=== PATIENT | female | born 1960 | race Hispanic/Latino ===

== ENCOUNTER → 2018-04-07 | Outpatient (CLI) | payer OTHER ==
[~2018-04-07] MED LIST: ALBUMIN (HUMAN) 25% 200 ML IV SCH; FURO20TA4 PO; LACT10SO9 PO; LEVO137T2 PO; LIDOCAINE HCL MPF 1% 5ML VIAL ONE; SPIR50TA5 PO
[2018-04-07 08:39] LABS: EOSINOPHILS % (AUTO) 1.3 % (0.0-8.0); HEMATOCRIT 30.1 % (36-48); LYMPHOCYTES % (AUTO) 23.4 % (21.0-51.0); MEAN CORPUSCULAR HEMOGLOBIN 29.5 pg (27.0-33.0); MEAN CORPUSCULAR HGB CONC 33.2 g/dL (32.0-36.0); MONOCYTES % (AUTO) 11.7 % (3.0-13.0); NEUTROPHILS % (AUTO) 62.6 % (40.0-77.0); NUCLEATED RED BLOOD CELLS 0.1 % (0.0-0.19); PLATELET COUNT (AUTO) 81 K/uL (130-400); RED BLOOD CELL COUNT(AUTO) 3.38 MIL/uL (4.00-5.50); RED CELL DISTRIBUTION WIDTH 17.9 % (11.0-15.5); WHITE BLOOD COUNT (AUTO) 3.9 K/uL (4.8-10.8)
[2018-04-07 08:52] LABS: ALBUMIN 2.3 g/dL (3.5-5.0); BILIRUBIN,TOTAL 1.6 mg/dL (0.2-1.0); CREATININE 1.3 mg/dL (0.5-1.5); POTASSIUM 4.2 mmol/L (3.5-5.1); TOTAL PROTEIN, SERUM 7.4 g/dL (6.0-8.3)
[2018-04-07 09:00] LABS: INR 1.36 (0.85-1.15); PROTHROMBIN TIME 14.2 SEC (9.6-11.6)
[2018-04-07 13:03] LABS: APPEARANCE BODY FLUID CLEAR (CLEAR); COLOR,BODY FLUID YELLOW (LT YELLOW); SPECIMENTYPE,BODY FLUID ASCITES
[2018-04-07 13:04] LABS: BODY FLUID RBC 29 /cu. mm.; BODY FLUID WBC 68 /cu. mm.
[2018-04-07 13:06] LABS: BF LYMPHOCYTE 39 %; BF MESOTHELIAL 44 %; BF MONOCYTE 16 %
[2018-04-07 13:13] LABS: TOTAL VOLUME,BODY FLUID 12800 mL
== END | disposition home or self-care (01) ==
LOC: RAH 07:34
PROVIDERS: ATTEND Internal Medicine Gastroenterology
DX: R18.8 Other ascites (principal); I10 Essential (primary) hypertension; F41.9 Anxiety disorder, unspecified; F32.9 Major depressive disorder, single episode, unspecified; M81.0 Age-related osteoporosis without current pathological fracture; M19.90 Unspecified osteoarthritis, unspecified site; F15.90 Other stimulant use, unspecified, uncomplicated; Z72.89 Other problems related to lifestyle; Z79.899 Other long term (current) drug therapy; Z79.2 Long term (current) use of antibiotics; Z83.3 Family history of diabetes mellitus
CPT/HCPCS: 36415; 49083; 80053; 85025; 85610; 87071; 87205; 88108; 88305; 89051; 96365; A4215; J3490; P9046

== ENCOUNTER → 2018-04-25 | Outpatient (CLI) | payer OTHER ==
[2018-04-25 08:53] LABS: BASOPHILS % (AUTO) 1.4 % (0.0-5.0); EOSINOPHILS % (AUTO) 2.2 % (0.0-8.0); HEMATOCRIT 30.7 % (36-48); LYMPHOCYTES % (AUTO) 27.3 % (21.0-51.0); MEAN CORPUSCULAR HEMOGLOBIN 28.9 pg (27.0-33.0); MEAN CORPUSCULAR HGB CONC 33.4 g/dL (32.0-36.0); MEAN CORPUSCULAR VOLUME 86.6 fL (79-99); MONOCYTES % (AUTO) 10.9 % (3.0-13.0); NEUTROPHILS % (AUTO) 58.2 % (40.0-77.0); NUCLEATED RED BLOOD CELLS 0.1 % (0.0-0.19); PLATELET COUNT (AUTO) 82 K/uL (130-400); RED BLOOD CELL COUNT(AUTO) 3.54 MIL/uL (4.00-5.50); RED CELL DISTRIBUTION WIDTH 18.5 % (11.0-15.5)
[2018-04-25 09:05] LABS: ALBUMIN 2.4 g/dL (3.5-5.0); BILIRUBIN,TOTAL 1.5 mg/dL (0.2-1.0); CREATININE 1.2 mg/dL (0.5-1.5); POTASSIUM 4.1 mmol/L (3.5-5.1); TOTAL PROTEIN, SERUM 7.6 g/dL (6.0-8.3)
[2018-04-25 09:15] LABS: INR 1.36 (0.85-1.15); PROTHROMBIN TIME 14.2 SEC (9.6-11.6)
[2018-04-25 12:06] LABS: SPECIMENTYPE,BODY FLUID ASCITES
[2018-04-25 12:07] LABS: APPEARANCE BODY FLUID CLEAR (CLEAR); BODY FLUID RBC 81 /cu. mm.; BODY FLUID WBC 64 /cu. mm.; COLOR,BODY FLUID LT YELLOW (LT YELLOW); TOTAL VOLUME,BODY FLUID 10500 mL
[2018-04-25 12:14] LABS: BF LYMPHOCYTE 40 %; BF MESOTHELIAL 33 %; BF MONOCYTE 5 %
== END ==
LOC: RAH 08:29
PROVIDERS: ATTEND Internal Medicine Gastroenterology
DX: R18.8 Other ascites (principal)
CPT/HCPCS: 36415; 49083; 80053; 85025; 85610; 87071; 87205; 88108; 88305; 89051; 96365; J3490; P9046

== ENCOUNTER → 2018-06-08 | Outpatient (CLI) | payer OTHER ==
[~2018-06-08] MED LIST changes: -LIDOCAINE HCL MPF 1% 5ML VIAL ONE
[2018-06-08 09:29] LABS: BASOPHILS % (AUTO) 0.3 % (0.0-5.0); EOSINOPHILS % (AUTO) 1.5 % (0.0-8.0); HEMATOCRIT 31.2 % (36-48); LYMPHOCYTES % (AUTO) 25.6 % (21.0-51.0); MEAN CORPUSCULAR HEMOGLOBIN 29.6 pg (27.0-33.0); MEAN CORPUSCULAR HGB CONC 32.5 g/dL (32.0-36.0); MEAN CORPUSCULAR VOLUME 91.1 fL (79-99); MONOCYTES % (AUTO) 10.3 % (3.0-13.0); NEUTROPHILS % (AUTO) 62.3 % (40.0-77.0); NUCLEATED RED BLOOD CELLS 0.2 % (0.0-0.19); PLATELET COUNT (AUTO) 104 K/uL (130-400); RED BLOOD CELL COUNT(AUTO) 3.43 MIL/uL (4.00-5.50); RED CELL DISTRIBUTION WIDTH 19.2 % (11.0-15.5); WHITE BLOOD COUNT (AUTO) 4.8 K/uL (4.8-10.8)
[2018-06-08 09:42] LABS: ALBUMIN 2.6 g/dL (3.5-5.0); BILIRUBIN,TOTAL 2.4 mg/dL (0.2-1.0); CREATININE 1.3 mg/dL (0.5-1.5); POTASSIUM 5.8 mmol/L (3.5-5.1); TOTAL PROTEIN, SERUM 8.4 g/dL (6.0-8.3)
[2018-06-08 09:44] LABS: INR 1.51 (0.85-1.15); PROTHROMBIN TIME 15.7 SEC (9.6-11.6)
== END | disposition home or self-care (01) ==
LOC: RAH 09:01
PROVIDERS: ATTEND Internal Medicine Gastroenterology
DX: R18.8 Other ascites (principal)
CPT/HCPCS: 36415; 80053; 85025; 85610; P9046

== ENCOUNTER → 2018-06-27 | Outpatient (CLI) | payer OTHER ==
[~2018-06-27] MED LIST changes: +LIDOCAINE HCL 1% 20 ML VIAL ONE
[2018-06-27 08:34] LABS: BASOPHILS % (AUTO) 1.3 % (0.0-5.0); EOSINOPHILS % (AUTO) 3.4 % (0.0-8.0); HEMATOCRIT 33.6 % (36-48); LYMPHOCYTES % (AUTO) 31.7 % (21.0-51.0); MEAN CORPUSCULAR HEMOGLOBIN 32.2 pg (27.0-33.0); MEAN CORPUSCULAR HGB CONC 31.9 g/dL (32.0-36.0); MEAN CORPUSCULAR VOLUME 100.8 fL (79-99); NEUTROPHILS % (AUTO) 51.6 % (40.0-77.0); NUCLEATED RED BLOOD CELLS 0.1 % (0.0-0.19); PLATELET COUNT (AUTO) 80 K/uL (130-400); RED BLOOD CELL COUNT(AUTO) 3.33 MIL/uL (4.00-5.50); RED CELL DISTRIBUTION WIDTH 23.7 % (11.0-15.5); WHITE BLOOD COUNT (AUTO) 3.7 K/uL (4.8-10.8)
[2018-06-27 08:40] LABS: ALBUMIN 2.9 g/dL (3.5-5.0); BILIRUBIN,TOTAL 1.6 mg/dL (0.2-1.0); CREATININE 1.5 mg/dL (0.5-1.5); TOTAL PROTEIN, SERUM 7.9 g/dL (6.0-8.3)
[2018-06-27 08:53] LABS: INR 1.19 (0.85-1.15); PROTHROMBIN TIME 12.5 SEC (9.6-11.6)
--- NOTE | 2018-06-27 10:12 | NUR ---
U/S GD PARACENTESIS PROCEDURE PERFORMED BY DR. MUKHERJEE. PUNCTURE SITE RLQ AND PATIENT TOLERATED PROCEDURE WELL. TOTAL REMOVED 8.7 LITERS OF ASCITES FLUID. ALBUMIN 25% 50 GRAMS IV GIVEN DURING PROCEDURE. SPECIMEN SENT TO LAB. END OF PROCEDURE AT 0959. CATHETER REMOVED AND DRESSING APPLIED. NO BLEEDING NOTED. DISCHARGE INSTRUCTIONS GIVEN TO PATIENT AND VERBALIZED UNDERSTANDING. DISCHARGED VIA AMBULATORY PER PATIENTS REQUEST AAO X3 WITH NO C/O PAIN.ABNORMAL LABS CALLED TO DR. SCHWAB REPORTED TO FRANKY RAMOS NP AF DR. SCHWAB, REPORTED WBC 3.7, RBC 3.33, HGB 10.7, PLT 80, BUN 21,ALB 2.9, AST/SGOT 46, TOTAL BILI 1.6, NO NEW ORDERS RECEIVED.
[2018-06-27 12:47] LABS: APPEARANCE BODY FLUID CLOUDY (CLEAR); BODY FLUID WBC 54 /cu. mm.; COLOR,BODY FLUID RED (LT YELLOW); SPECIMENTYPE,BODY FLUID ASCITES; TOTAL VOLUME,BODY FLUID 8700 mL
[2018-06-27 12:48] LABS: BODY FLUID RBC 18900 /cu. mm.
[2018-06-27 13:13] LABS: BF LYMPHOCYTE 44 %; BF MESOTHELIAL 45 %; BF MONOCYTE 10 %
== END | disposition home or self-care (01) ==
LOC: RAH 07:56
PROVIDERS: ATTEND Internal Medicine Gastroenterology
DX: R18.8 Other ascites (principal)
CPT/HCPCS: 36415; 49083; 80053; 85025; 85610; 87071; 87205; 88108; 88305; 89051; 96365; A4215; P9046

== ENCOUNTER → 2018-07-04 | Outpatient (CLI) | payer OTHER ==
[~2018-07-04] MED LIST changes: +ALBUMIN (HUMAN) 25% 200 ML IV ONE; -ALBUMIN (HUMAN) 25% 200 ML IV SCH
[2018-07-04 09:48] LABS: BASOPHILS % (AUTO) 1.4 % (0.0-5.0); EOSINOPHILS % (AUTO) 3.2 % (0.0-8.0); LYMPHOCYTES % (AUTO) 36.6 % (21.0-51.0); MEAN CORPUSCULAR HEMOGLOBIN 31.5 pg (27.0-33.0); MEAN CORPUSCULAR HGB CONC 31.9 g/dL (32.0-36.0); MEAN CORPUSCULAR VOLUME 98.8 fL (79-99); MONOCYTES % (AUTO) 11.6 % (3.0-13.0); NEUTROPHILS % (AUTO) 47.2 % (40.0-77.0); NUCLEATED RED BLOOD CELLS 0.2 % (0.0-0.19); PLATELET COUNT (AUTO) 73 K/uL (130-400); RED BLOOD CELL COUNT(AUTO) 3.45 MIL/uL (4.00-5.50); RED CELL DISTRIBUTION WIDTH 21.1 % (11.0-15.5); WHITE BLOOD COUNT (AUTO) 4.2 K/uL (4.8-10.8)
[2018-07-04 10:01] LABS: BILIRUBIN,TOTAL 1.5 mg/dL (0.2-1.0); CREATININE 1.4 mg/dL (0.5-1.5); POTASSIUM 4.8 mmol/L (3.5-5.1); TOTAL PROTEIN, SERUM 7.5 g/dL (6.0-8.3)
[2018-07-04 10:06] LABS: INR 1.23 (0.85-1.15); PROTHROMBIN TIME 12.9 SEC (9.6-11.6)
--- NOTE | 2018-07-04 11:20 | NUR ---
U/S GD PARACENTESIS PROCEDURE PERFORMED BY DR SIBLEY. PUNCTURE SITE RIGHT SIDE ABDOMEN AND PATIENT TOLERATED PROCEDURE WELL. TOTAL REMOVED 4.3 LITERS OF CLOUDY PINK TINGED FLUID. ALBUMIN 25% 50 GRAMS IV GIVEN DURING PROCEDURE. SPECIMEN SENT TO LAB. END OF PROCEDURE AT 1150. CATHETER REMOVED AND DRESSING APPLIED. NO BLEEDING NOTED. DISCHARGE INSTRUCTIONS GIVEN TO PATIENT AND VERBALIZED UNDERSTANDING. DISCHARGED AMBULATORY, STABLE, AAO X3 WITH NO C/O PAIN.
[2018-07-04 14:01] LABS: APPEARANCE BODY FLUID CLOUDY (CLEAR); COLOR,BODY FLUID DARK YELLOW (LT YELLOW); SPECIMENTYPE,BODY FLUID ASCITES
[2018-07-04 14:02] LABS: BODY FLUID RBC 4489 /cu. mm.; BODY FLUID WBC 77 /cu. mm.
[2018-07-04 14:18] LABS: BF LYMPHOCYTE 40 %; BF MESOTHELIAL 52 %; BF MONOCYTE 7 %
[2018-07-04 14:19] LABS: TOTAL VOLUME,BODY FLUID 4300 mL
== END | disposition home or self-care (01) ==
LOC: RAH 10:00
PROVIDERS: ATTEND Internal Medicine Gastroenterology
DX: R18.8 Other ascites (principal); Z79.01 Long term (current) use of anticoagulants
CPT/HCPCS: 36415; 49083; 80053; 85025; 85610; 87071; 87205; 89051; 96365; A4215; P9046; 88108; 88305

== ENCOUNTER → 2018-07-11 | Outpatient (CLI) | payer OTHER ==
[2018-07-11 09:47] LABS: BASOPHILS % (AUTO) 1.3 % (0.0-5.0); EOSINOPHILS % (AUTO) 3.6 % (0.0-8.0); HEMATOCRIT 32.7 % (36-48); LYMPHOCYTES % (AUTO) 29.7 % (21.0-51.0); MEAN CORPUSCULAR HEMOGLOBIN 31.5 pg (27.0-33.0); MEAN CORPUSCULAR HGB CONC 32.1 g/dL (32.0-36.0); MEAN CORPUSCULAR VOLUME 98.1 fL (79-99); NEUTROPHILS % (AUTO) 52.4 % (40.0-77.0); NUCLEATED RED BLOOD CELLS 0.2 % (0.0-0.19); PLATELET COUNT (AUTO) 65 K/uL (130-400); RED BLOOD CELL COUNT(AUTO) 3.33 MIL/uL (4.00-5.50); RED CELL DISTRIBUTION WIDTH 19.9 % (11.0-15.5); WHITE BLOOD COUNT (AUTO) 4.4 K/uL (4.8-10.8)
[2018-07-11 09:57] LABS: INR 1.26 (0.85-1.15); PROTHROMBIN TIME 13.2 SEC (9.6-11.6)
[2018-07-11 10:49] LABS: ALBUMIN 2.9 g/dL (3.5-5.0); BILIRUBIN,TOTAL 1.3 mg/dL (0.2-1.0); CREATININE 1.1 mg/dL (0.5-1.5); POTASSIUM 4.4 mmol/L (3.5-5.1); TOTAL PROTEIN, SERUM 7.1 g/dL (6.0-8.3)
--- NOTE | 2018-07-11 10:50 | NUR ---
U/S GD PARACENTESIS PROCEDURE PERFORMED BY DR MUKHERJEE. PUNCTURE SITE RLQ AND TOTAL REMOVED 6.0 LITERS OF KORIN CLOUDY COLORED FLUID. END OF PROCEDURE AT 1110. CATHETER REMOVED AND DRESSING APPLIED. NO BLEEDING NOTED. PATIENT TOLERATED PROCEDURE WELL. SPECIMEN SENT TO LAB. ALBUMIN 25 % 50 GRAMS GIVEN IV PER MD ORDERS TO 20 GAUGE PIV. DISCHARGE INSTRUCTIONS GIVEN TO PATIENT AND VERBALIZED UNDERSTANDING. DISCHARGED AMBULATORY. AAO X3. STABLE, NO C/O PAIN.
[2018-07-11 12:49] LABS: APPEARANCE BODY FLUID CLEAR (CLEAR); BODY FLUID RBC 469 /cu. mm.; BODY FLUID WBC 49 /cu. mm.; COLOR,BODY FLUID YELLOW (LT YELLOW); SPECIMENTYPE,BODY FLUID ASCITES; TOTAL VOLUME,BODY FLUID 6000 mL
[2018-07-11 12:56] LABS: BF LYMPHOCYTE 37 %; BF MESOTHELIAL 51 %; BF MONOCYTE 11 %
== END | disposition home or self-care (01) ==
LOC: RAH 09:27
PROVIDERS: ATTEND Internal Medicine Gastroenterology
DX: R18.8 Other ascites (principal); Z79.01 Long term (current) use of anticoagulants
CPT/HCPCS: 36415; 49083; 80053; 85025; 85610; 87071; 87205; 88108; 88305; 88313; 89051; 96365; A4215; P9046

== ENCOUNTER → 2018-08-01 | Outpatient (CLI) | payer OTHER ==
[~2018-08-01] MED LIST changes: -ALBUMIN (HUMAN) 25% 200 ML IV ONE; +ALBUMIN (HUMAN) 25% 200 ML IV SCH
[2018-08-01 10:21] LABS: BASOPHILS % (AUTO) 1.3 % (0.0-5.0); EOSINOPHILS % (AUTO) 3.4 % (0.0-8.0); HEMATOCRIT 32.7 % (36-48); LYMPHOCYTES % (AUTO) 30.6 % (21.0-51.0); MEAN CORPUSCULAR HEMOGLOBIN 31.6 pg (27.0-33.0); MEAN CORPUSCULAR VOLUME 95.7 fL (79-99); MONOCYTES % (AUTO) 13.3 % (3.0-13.0); NEUTROPHILS % (AUTO) 51.4 % (40.0-77.0); PLATELET COUNT (AUTO) 72 K/uL (130-400); RED BLOOD CELL COUNT(AUTO) 3.42 MIL/uL (4.00-5.50); RED CELL DISTRIBUTION WIDTH 17.4 % (11.0-15.5)
[2018-08-01 10:31] LABS: INR 1.39 (0.85-1.15); PROTHROMBIN TIME 14.5 SEC (9.6-11.6)
[2018-08-01 10:34] LABS: ALBUMIN 2.9 g/dL (3.5-5.0); BILIRUBIN,TOTAL 1.6 mg/dL (0.2-1.0); CREATININE 1.2 mg/dL (0.5-1.5); POTASSIUM 3.8 mmol/L (3.5-5.1); TOTAL PROTEIN, SERUM 7.3 g/dL (6.0-8.3)
--- NOTE | 2018-08-01 10:50 | NUR ---
U/S GD PARACENTESIS PROCEDURE PERFORMED BY DR GARAY. PUNCTURE SITE RIGHT SIDE ABDOMEN AND PATIENT TOLERATED PROCEDURE WELL. ONLY REMOVED TOTAL 3.2 LITERS OF CLEAR YELLOW FLUID, DUE TO LOW BLOOD PRESSURE, PT ASYMPTOMATIC. ALBUMIN 25% 50 GRAMS IV GIVEN DURING PROCEDURE, PT TOLERATED WELL. SPECIMEN SENT TO LAB. END OF PROCEDURE AT 1110. CATHETER REMOVED AND DRESSING APPLIED. NO BLEEDING NOTED. DISCHARGE INSTRUCTIONS GIVEN TO PATIENT AND VERBALIZED UNDERSTANDING. BLOOD PRESSURE STABLE 101/57, HR 63/MIN, RESPIRATIONS 18/MIN, O2 SAT 99% PT ASYMPTOMATIC. DISCHARGED AMBULATORY. AAO X3 WITH NO C/O PAIN.
[2018-08-01 13:31] LABS: APPEARANCE BODY FLUID CLEAR (CLEAR); BODY FLUID RBC 83 /cu. mm.; BODY FLUID WBC 110 /cu. mm.; COLOR,BODY FLUID YELLOW (LT YELLOW); SPECIMENTYPE,BODY FLUID ASCITES; TOTAL VOLUME,BODY FLUID 3200 mL
[2018-08-01 13:33] LABS: BF LYMPHOCYTE 46 %; BF MESOTHELIAL 49 %; BF MONOCYTE 4 %
== END | disposition home or self-care (01) ==
LOC: RAH 09:57
PROVIDERS: ATTEND Internal Medicine Gastroenterology
DX: R18.8 Other ascites (principal); Z79.01 Long term (current) use of anticoagulants
CPT/HCPCS: 36415; 49083; 80053; 85025; 85610; 87071; 87205; 88108; 88305; 89051; 96365; A4215; P9046

== ENCOUNTER → 2018-08-08 | Outpatient (CLI) | payer OTHER ==
[~2018-08-08] MED LIST changes: +ALBUMIN (HUMAN) 25% 200 ML IV ONE; -ALBUMIN (HUMAN) 25% 200 ML IV SCH
[2018-08-08 11:20] LABS: BASOPHILS % (AUTO) 1.2 % (0.0-5.0); EOSINOPHILS % (AUTO) 2.5 % (0.0-8.0); HEMATOCRIT 31.4 % (36-48); LYMPHOCYTES % (AUTO) 31.1 % (21.0-51.0); MEAN CORPUSCULAR HGB CONC 32.8 g/dL (32.0-36.0); MEAN CORPUSCULAR VOLUME 94.7 fL (79-99); MONOCYTES % (AUTO) 12.5 % (3.0-13.0); NEUTROPHILS % (AUTO) 52.7 % (40.0-77.0); PLATELET COUNT (AUTO) 63 K/uL (130-400); RED BLOOD CELL COUNT(AUTO) 3.32 MIL/uL (4.00-5.50); RED CELL DISTRIBUTION WIDTH 16.1 % (11.0-15.5); WHITE BLOOD COUNT (AUTO) 2.8 K/uL (4.8-10.8)
[2018-08-08 11:40] LABS: BILIRUBIN,TOTAL 1.3 mg/dL (0.2-1.0); CREATININE 1.2 mg/dL (0.5-1.5); POTASSIUM 3.7 mmol/L (3.5-5.1); TOTAL PROTEIN, SERUM 7.3 g/dL (6.0-8.3)
[2018-08-08 11:43] LABS: INR 1.29 (0.85-1.15); PROTHROMBIN TIME 13.5 SEC (9.6-11.6)
[2018-08-08 11:49] LABS: BASOPHILS % (MANUAL) 1 % (0-2); EOSINOPHILS % (MANUAL) 1 % (1-6); LYMPHOCYTES % (MANUAL) 34 % (22-44); MONOCYTES % (MANUAL) 5 % (2-9); SEGMENTED NEUTROPHILS % 59 % (40-70)
[2018-08-08 11:53] LABS: MAN.DIFF COMMENT-IMPRESSION MANUAL DIFFERENTIAL
[2018-08-08 11:54] LABS: PLATELET MORPHOLOGY COMMENT DECREASED
--- NOTE | 2018-08-08 12:37 | NUR ---
U/S GD PARACENTESIS PROCEDURE PERFORMED BY DR Jose Elias DAY. PUNCTURE SITE RLQ AND PATIENT TOLERATED PROCEDURE WELL. TOTAL REMOVED 4.2 LITERS OF CLOUDY YELLOW FLUID. ALBUMIN 25% 50 GRAMS IV GIVEN DURING PROCEDURE. SPECIMEN SENT TO LAB. END OF PROCEDURE AT 1220. CATHETER REMOVED AND DRESSING APPLIED. NO BLEEDING NOTED. DISCHARGE INSTRUCTIONS GIVEN TO PATIENT AND VERBALIZED UNDERSTANDING. DISCHARGED VIA AMBULATION AT 1240. AAO X3 WITH NO C/O PAIN.
[2018-08-08 13:57] LABS: APPEARANCE BODY FLUID CLEAR (CLEAR); BODY FLUID WBC 52 /cu. mm.; COLOR,BODY FLUID YELLOW (LT YELLOW); SPECIMENTYPE,BODY FLUID ASCITES; TOTAL VOLUME,BODY FLUID 4200 mL
[2018-08-08 13:58] LABS: BODY FLUID RBC 450 /cu. mm.
[2018-08-08 14:28] LABS: BF LYMPHOCYTE 43 %; BF MESOTHELIAL 57 %
== END | disposition home or self-care (01) ==
LOC: RAH 10:32
PROVIDERS: ATTEND Internal Medicine Gastroenterology
DX: R18.8 Other ascites (principal); Z79.01 Long term (current) use of anticoagulants
CPT/HCPCS: 36415; 49083; 80053; 85025; 85610; 87071; 87205; 88108; 88305; 89051; 96365; A4215; P9046 ×2

== ENCOUNTER → 2018-08-10 | Outpatient (CLI) | payer OTHER ==
[~2018-08-10] MED LIST changes: -ALBUMIN (HUMAN) 25% 200 ML IV ONE; -LIDOCAINE HCL 1% 20 ML VIAL ONE
== END ==
LOC: RAH 10:13
PROVIDERS: ATTEND Internal Medicine Gastroenterology
DX: K80.20 Calculus of gallbladder without cholecystitis without obstruction (principal); R97.8 Other abnormal tumor markers; R18.8 Other ascites
CPT/HCPCS: 76700; 93975

== ENCOUNTER → 2018-08-15 | Outpatient (CLI) | payer OTHER ==
[~2018-08-15] MED LIST changes: +ALBUMIN (HUMAN) 25% 200 ML IV SCH; +LIDOCAINE HCL 1% 20 ML VIAL ONE
[2018-08-15 10:00] LABS: BASOPHILS % (AUTO) 1.1 % (0.0-5.0); EOSINOPHILS % (AUTO) 3.6 % (0.0-8.0); HEMATOCRIT 30.2 % (36-48); LYMPHOCYTES % (AUTO) 34.4 % (21.0-51.0); MEAN CORPUSCULAR HEMOGLOBIN 31.3 pg (27.0-33.0); MEAN CORPUSCULAR HGB CONC 33.3 g/dL (32.0-36.0); MEAN CORPUSCULAR VOLUME 93.9 fL (79-99); MONOCYTES % (AUTO) 13.8 % (3.0-13.0); NEUTROPHILS % (AUTO) 47.1 % (40.0-77.0); PLATELET COUNT (AUTO) 61 K/uL (130-400); RED BLOOD CELL COUNT(AUTO) 3.21 MIL/uL (4.00-5.50); RED CELL DISTRIBUTION WIDTH 16.2 % (11.0-15.5); WHITE BLOOD COUNT (AUTO) 2.7 K/uL (4.8-10.8)
[2018-08-15 10:17] LABS: ALBUMIN 3.2 g/dL (3.5-5.0); BILIRUBIN,TOTAL 1.7 mg/dL (0.2-1.0); CREATININE 1.2 mg/dL (0.5-1.5); TOTAL PROTEIN, SERUM 7.2 g/dL (6.0-8.3)
[2018-08-15 10:19] LABS: INR 1.34 (0.85-1.15)
[2018-08-15 10:33] LABS: EOSINOPHILS % (MANUAL) 4 % (1-6); LYMPHOCYTES % (MANUAL) 28 % (22-44); MAN.DIFF COMMENT-IMPRESSION MANUAL DIFFERENTIAL; MONOCYTES % (MANUAL) 9 % (2-9); REACTIVE LYMPHOCYTES 1 % (0-0); SEGMENTED NEUTROPHILS % 58 % (40-70)
[2018-08-15 10:34] LABS: PLATELET MORPHOLOGY COMMENT DECREASED
--- NOTE | 2018-08-15 12:17 | NUR ---
U/S GD PARACENTESIS PROCEDURE PERFORMED BY DR. GARAY. PUNCTURE SITE RLQ AND PATIENT TOLERATED PROCEDURE WELL. TOTAL REMOVED 3.1LITERS OF ASCITES FLUID . ALBUMIN 25% 50 GRAMS IV NOT GIVEN DURING PROCEDURE DUE TO PATIENT NOT MEETING CRITERIA, SPECIMEN SENT TO LAB. END OF PROCEDURE AT 1205. CATHETER REMOVED AND DRESSING APPLIED. NO BLEEDING NOTED. DISCHARGE INSTRUCTIONS GIVEN TO PATIENT AND VERBALIZED UNDERSTANDING. DISCHARGED VIA AMBULATORY PER PATIENTS REQUEST. AAO X3 WITH NO C/O PAIN
[2018-08-15 13:16] LABS: APPEARANCE BODY FLUID CLEAR (CLEAR); BODY FLUID WBC 179 /cu. mm.; COLOR,BODY FLUID YELLOW (LT YELLOW); SPECIMENTYPE,BODY FLUID ASCITES; TOTAL VOLUME,BODY FLUID 3000 mL
[2018-08-15 13:17] LABS: BODY FLUID RBC 196 /cu. mm.
[2018-08-15 13:22] LABS: BF LYMPHOCYTE 37 %; BF MESOTHELIAL 60 %; BF MONOCYTE 2 %
== END ==
LOC: RAH 09:43
PROVIDERS: ATTEND Internal Medicine Gastroenterology
DX: R18.8 Other ascites (principal); Z79.01 Long term (current) use of anticoagulants
CPT/HCPCS: 36415; 49083; 80053; 85025; 85610; 87071; 87205; 88108; 88305; 89051; A4215; P9046

== ENCOUNTER → 2018-08-22 | Outpatient (CLI) | payer OTHER ==
[~2018-08-22] MED LIST changes: -ALBUMIN (HUMAN) 25% 200 ML IV SCH; -LIDOCAINE HCL 1% 20 ML VIAL ONE
[2018-08-22 10:28] LABS: EOSINOPHILS % (AUTO) 2.5 % (0.0-8.0); HEMATOCRIT 31.8 % (36-48); LYMPHOCYTES % (AUTO) 28.8 % (21.0-51.0); MEAN CORPUSCULAR HEMOGLOBIN 30.9 pg (27.0-33.0); MEAN CORPUSCULAR HGB CONC 33.1 g/dL (32.0-36.0); MEAN CORPUSCULAR VOLUME 93.4 fL (79-99); MONOCYTES % (AUTO) 8.6 % (3.0-13.0); NEUTROPHILS % (AUTO) 59.1 % (40.0-77.0); PLATELET COUNT (AUTO) 69 K/uL (130-400); RED CELL DISTRIBUTION WIDTH 15.8 % (11.0-15.5); WHITE BLOOD COUNT (AUTO) 2.5 K/uL (4.8-10.8)
[2018-08-22 10:35] LABS: INR 1.25 (0.85-1.15); POTASSIUM 3.9 mmol/L (3.5-5.1); PROTHROMBIN TIME 13.1 SEC (9.6-11.6)
[2018-08-22 11:12] LABS: BASOPHILS % (MANUAL) 2 % (0-2); EOSINOPHILS % (MANUAL) 1 % (1-6); LYMPHOCYTES % (MANUAL) 39 % (22-44); MAN.DIFF COMMENT-IMPRESSION MANUAL DIFFERENTIAL; MONOCYTES % (MANUAL) 5 % (2-9); SEGMENTED NEUTROPHILS % 53 % (40-70)
[2018-08-22 11:28] LABS: ALBUMIN 3.1 g/dL (3.5-5.0); BILIRUBIN,TOTAL 1.9 mg/dL (0.2-1.0); CREATININE 1.1 mg/dL (0.5-1.5); TOTAL PROTEIN, SERUM 7.8 g/dL (6.0-8.3)
--- NOTE | 2018-08-22 12:20 | NUR ---
U/S GD PARACENTESIS PROCEDURE PERFORMED BY DR Payal MUKHERJEE PUNCTURE SITE RLQ AND PATIENT TOLERATED PROCEDURE WELL. TOTAL REMOVED 3.1 LITERS OF ASCITES FLUID. ALBUMIN NOT GIVEN PATIENT DID NOT MEET CRITERIA. SPECIMEN SENT TO LAB. END OF PROCEDURE AT 1205. CATHETER REMOVED AND DRESSING APPLIED. NO BLEEDING NOTED. DISCHARGE INSTRUCTIONS GIVEN TO PATIENT AND VERBALIZED UNDERSTANDING. DISCHARGED VIA AMBULATORY. AAO X3 WITH NO C/O PAIN
[2018-08-22 13:30] LABS: APPEARANCE BODY FLUID CLEAR (CLEAR); SPECIMENTYPE,BODY FLUID ASCITES
[2018-08-22 13:31] LABS: BODY FLUID RBC 247 /cu. mm.; BODY FLUID WBC 154 /cu. mm.; COLOR,BODY FLUID YELLOW (LT YELLOW); TOTAL VOLUME,BODY FLUID 3150 mL
[2018-08-22 13:37] LABS: BF LYMPHOCYTE 27 %; BF MESOTHELIAL 56 %; BF MONOCYTE 8 %
== END ==
LOC: RAH 09:56
PROVIDERS: ATTEND Internal Medicine Gastroenterology
DX: R18.8 Other ascites (principal); Z79.01 Long term (current) use of anticoagulants; I82.90 Acute embolism and thrombosis of unspecified vein; I26.99 Other pulmonary embolism without acute cor pulmonale
CPT/HCPCS: 36415; 49083; 80053; 82105; 85025; 85610; 87071; 87205; 88108; 88305; 89051; A4215

== ENCOUNTER → 2018-08-29 | Outpatient (CLI) | payer OTHER ==
[~2018-08-29] MED LIST changes: +LIDOCAINE HCL 1% 20 ML VIAL ONE
[2018-08-29 10:32] LABS: BASOPHILS % (AUTO) 1.3 % (0.0-5.0); EOSINOPHILS % (AUTO) 2.9 % (0.0-8.0); HEMATOCRIT 34.2 % (36-48); LYMPHOCYTES % (AUTO) 29.8 % (21.0-51.0); MEAN CORPUSCULAR HEMOGLOBIN 30.8 pg (27.0-33.0); MEAN CORPUSCULAR HGB CONC 33.4 g/dL (32.0-36.0); MEAN CORPUSCULAR VOLUME 92.2 fL (79-99); MONOCYTES % (AUTO) 10.7 % (3.0-13.0); NEUTROPHILS % (AUTO) 55.3 % (40.0-77.0); NUCLEATED RED BLOOD CELLS 0.2 % (0.0-0.19); PLATELET COUNT (AUTO) 73 K/uL (130-400); RED BLOOD CELL COUNT(AUTO) 3.71 MIL/uL (4.00-5.50); RED CELL DISTRIBUTION WIDTH 16.1 % (11.0-15.5); WHITE BLOOD COUNT (AUTO) 2.5 K/uL (4.8-10.8)
[2018-08-29 10:44] LABS: INR 1.28 (0.85-1.15); PROTHROMBIN TIME 13.4 SEC (9.6-11.6)
[2018-08-29 10:48] LABS: ALBUMIN 2.9 g/dL (3.5-5.0); CREATININE 1.2 mg/dL (0.5-1.5); POTASSIUM 3.7 mmol/L (3.5-5.1); TOTAL PROTEIN, SERUM 7.8 g/dL (6.0-8.3)
[2018-08-29 11:25] LABS: EOSINOPHILS % (MANUAL) 5 % (1-6); LYMPHOCYTES % (MANUAL) 32 % (22-44); MONOCYTES % (MANUAL) 9 % (2-9); REACTIVE LYMPHOCYTES 1 % (0-0); SEGMENTED NEUTROPHILS % 53 % (40-70)
[2018-08-29 11:26] LABS: MAN.DIFF COMMENT-IMPRESSION MANUAL DIFFERENTIAL
--- NOTE | 2018-08-29 11:35 | NUR ---
U/S GUIDED PARACENTESIS PERFORMED BY DR. DAY. PUNCTURE SITE TO RLQ PATIENT TOLERATED PROCEDURE WELL. TOTAL ASCITES FLUID REMOVED 3.8 LTS. END OF PROCEDURE AT 1123 CATHETER REMOVED DRESSING APPLIED. NO BLEEDING NOTED, PATIENT RECEIVED DISCHARGE INSTRUCTIONS. PATIENT DISCHARGED VIA AMBULATORY, PATIENT DID NOT MEET CRITERIA FOR ALBUMIN TO BE GIVEN, PATIENT DISCHARGE IN NO DISTRESS.
[2018-08-29 12:30] LABS: APPEARANCE BODY FLUID CLEAR (CLEAR); COLOR,BODY FLUID YELLOW (LT YELLOW); SPECIMENTYPE,BODY FLUID ASCITES; TOTAL VOLUME,BODY FLUID 3800 mL
[2018-08-29 12:31] LABS: BODY FLUID RBC 348 /cu. mm.; BODY FLUID WBC 100 /cu. mm.
[2018-08-29 12:58] LABS: BF LYMPHOCYTE 32 %; BF MESOTHELIAL 63 %; BF MONOCYTE 3 %
== END | disposition home or self-care (01) ==
LOC: RAH 09:43
PROVIDERS: ATTEND Internal Medicine Gastroenterology
DX: R18.8 Other ascites (principal); Z79.01 Long term (current) use of anticoagulants
CPT/HCPCS: 36415; 49083; 80053; 85025; 85610; 87071; 87205; 89051; A4215

== ENCOUNTER → 2018-09-07 | Outpatient (CLI) | payer OTHER ==
[~2018-09-07] MED LIST changes: +IOHEXOL 350 MG/ML 100ML INFUS..BTL IV ONE; -LIDOCAINE HCL 1% 20 ML VIAL ONE
== END | disposition home or self-care (01) ==
LOC: OIH 08:02
PROVIDERS: ATTEND Internal Medicine Gastroenterology
DX: K74.60 Unspecified cirrhosis of liver (principal); K43.9 Ventral hernia without obstruction or gangrene; R18.8 Other ascites; R16.1 Splenomegaly, not elsewhere classified; R91.1 Solitary pulmonary nodule; K80.20 Calculus of gallbladder without cholecystitis without obstruction
CPT/HCPCS: 74178; Q9967

== ENCOUNTER 2018-09-16 10:49 | Emergency (ER) | payer OTHER ==
[~2018-09-16 10:49] MED LIST changes: -ALBUMIN (HUMAN) 25% 100 ML IV SCH; -LIDOCAINE HCL 1% 20 ML VIAL ONE
[2018-09-16 11:49] LABS: BASOPHILS % (AUTO) 0.8 % (0.0-5.0); EOSINOPHILS % (AUTO) 2.5 % (0.0-8.0); LYMPHOCYTES % (AUTO) 33.7 % (21.0-51.0); MEAN CORPUSCULAR HEMOGLOBIN 30.1 pg (27.0-33.0); MEAN CORPUSCULAR HGB CONC 33.4 g/dL (32.0-36.0); MONOCYTES % (AUTO) 11.9 % (3.0-13.0); NEUTROPHILS % (AUTO) 51.1 % (40.0-77.0); NUCLEATED RED BLOOD CELLS 0.1 % (0.0-0.19); PLATELET COUNT (AUTO) 87 K/uL (130-400); RED BLOOD CELL COUNT(AUTO) 3.56 MIL/uL (4.00-5.50); RED CELL DISTRIBUTION WIDTH 15.3 % (11.0-15.5); WHITE BLOOD COUNT (AUTO) 4.3 K/uL (4.8-10.8)
[2018-09-16] MEDS ORDERED: KETOROLAC TROMETHAMINE 30MG/ML ONE (11:56)
[2018-09-16 12:03] LABS: CARBON DIOXIDE 23 mmol/L (21-32); CHLORIDE 105 mmol/L (101-111); CREATININE 1.2 mg/dL (0.5-1.5); GLOMERULAR FILTR. RATE CALC 49 mL/min (>60); GLUCOSE,RANDOM 122 mg/dL (70-105); POTASSIUM 4.3 mmol/L (3.5-5.1); SODIUM SERUM 139 mmol/L (136-145); UREA NITROGEN, BLOOD 20 mg/dL (7-18)
[2018-09-16 12:08] LABS: ALANINE AMINOTRANSFERASE 24 U/L (12-78); ALBUMIN 2.8 g/dL (3.5-5.0); ALCOHOL, BLOOD < 3 mg/dL (0-10); ASPARTATE AMINOTRANSFERASE 37 U/L (10-37); TOTAL PROTEIN, SERUM 7.3 g/dL (6.0-8.3)
[2018-09-16] MEDS ORDERED: ACETAMINOPHEN-CODEINE 300/30MG TAB ONE (13:32)
== END 2018-09-16 15:01 | disposition home or self-care (01) ==
LOC: EDH 10:49
DX: S00.83XA Contusion of other part of head, initial encounter (principal); S50.11XA Contusion of right forearm, initial encounter; S40.022A Contusion of left upper arm, initial encounter; I10 Essential (primary) hypertension; W01.0XXA Fall on same level from slipping, tripping and stumbling without subsequent striking against object, initial encounter; Y93.01 Activity, walking, marching and hiking; Y92.098 Other place in other non-institutional residence as the place of occurrence of the external cause; Y99.8 Other external cause status
CPT/HCPCS: 36415 ×2; 49083; 70450; 72125; 73060; 73090 ×2; 73130 ×2; 80053 ×2; 85025 ×2; 85610; 87071; 87205; 88108; 88305; 89051; 96365; 96374; 99284; A4215; G0480; J1885; P9046

== ENCOUNTER → 2018-09-16 | Outpatient (CLI) | payer OTHER ==
[~2018-09-16] MED LIST changes: +ALBUMIN (HUMAN) 25% 100 ML IV SCH; -IOHEXOL 350 MG/ML 100ML INFUS..BTL IV ONE; +LIDOCAINE HCL 1% 20 ML VIAL ONE
[2018-09-16 09:28] LABS: HEMATOCRIT 34.4 % (36-48); LYMPHOCYTES % (AUTO) 30.3 % (21.0-51.0); MEAN CORPUSCULAR HGB CONC 34.4 g/dL (32.0-36.0); MEAN CORPUSCULAR VOLUME 90.2 fL (79-99); NEUTROPHILS % (AUTO) 54.7 % (40.0-77.0); PLATELET COUNT (AUTO) 83 K/uL (130-400); RED BLOOD CELL COUNT(AUTO) 3.81 MIL/uL (4.00-5.50); RED CELL DISTRIBUTION WIDTH 15.7 % (11.0-15.5); WHITE BLOOD COUNT (AUTO) 3.2 K/uL (4.8-10.8)
[2018-09-16 09:37] LABS: CREATININE 1.3 mg/dL (0.5-1.5); POTASSIUM 4.4 mmol/L (3.5-5.1)
[2018-09-16 09:40] LABS: INR 1.19 (0.85-1.15); PROTHROMBIN TIME 12.5 SEC (9.6-11.6)
--- NOTE | 2018-09-16 09:40 | NUR ---
U/S GD PARACENTESIS PROCEDURE PERFORMED BY DR MUKHERJEE. PUNCTURE SITE RIGHT UPPER QUADRANT SIDE OF ABDOMEN AND PATIENT TOLERATED PROCEDURE WELL. TOTAL REMOVED 4.9 LITERS OF CLOUDY YELLOW FLUID. END OF PROCEDURE AT 1020. CATHETER REMOVED AND DRESSING APPLIED. NO BLEEDING NOTED. SPECIMEN SENT TO LAB. ALBUMIN 25% 25 GRAMS GIVEN TO PATIENT VIA PIV TO THE LEFT ANTECUBITAL. DISCHARGE INSTRUCTIONS GIVEN TO PATIENT AND VERBALIZED UNDERSTANDING. DISCHARGED AMBULATORY, STABLE, AAO X3 WITH NO C/O PAIN @ 1040.
[2018-09-16 09:42] LABS: ALBUMIN 2.4 g/dL (3.5-5.0); BILIRUBIN,TOTAL 0.9 mg/dL (0.2-1.0); TOTAL PROTEIN, SERUM 7.6 g/dL (6.0-8.3)
[2018-09-16 12:49] LABS: APPEARANCE BODY FLUID CLEAR (CLEAR); BODY FLUID RBC 144 /cu. mm.; BODY FLUID WBC 73 /cu. mm.; COLOR,BODY FLUID YELLOW (LT YELLOW); SPECIMENTYPE,BODY FLUID ASCITES; TOTAL VOLUME,BODY FLUID 4900 mL
[2018-09-16 13:28] LABS: BF LYMPHOCYTE 23 %; BF MESOTHELIAL 58 %; BF MONOCYTE 18 %
== END ==
LOC: RAH 08:33
PROVIDERS: ATTEND Internal Medicine Gastroenterology
DX: R18.8 Other ascites (principal); Z79.01 Long term (current) use of anticoagulants
CPT/HCPCS: 36415; 49083; 80053; 85025; 85610; 87071; 87205; 88108; 88305; 89051; 96365; A4215; P9046

== ENCOUNTER → 2018-09-23 | Outpatient (CLI) | payer OTHER ==
[2018-09-23 08:45] LABS: BASOPHILS % (AUTO) 1.2 % (0.0-5.0); EOSINOPHILS % (AUTO) 3.5 % (0.0-8.0); HEMATOCRIT 33.8 % (36-48); LYMPHOCYTES % (AUTO) 29.2 % (21.0-51.0); MEAN CORPUSCULAR HEMOGLOBIN 29.9 pg (27.0-33.0); MEAN CORPUSCULAR HGB CONC 33.2 g/dL (32.0-36.0); MONOCYTES % (AUTO) 13.3 % (3.0-13.0); NEUTROPHILS % (AUTO) 52.8 % (40.0-77.0); NUCLEATED RED BLOOD CELLS 0.1 % (0.0-0.19); PLATELET COUNT (AUTO) 87 K/uL (130-400); RED BLOOD CELL COUNT(AUTO) 3.75 MIL/uL (4.00-5.50); RED CELL DISTRIBUTION WIDTH 16.1 % (11.0-15.5); WHITE BLOOD COUNT (AUTO) 3.3 K/uL (4.8-10.8)
[2018-09-23 08:54] LABS: CREATININE 1.4 mg/dL (0.5-1.5); POTASSIUM 4.4 mmol/L (3.5-5.1)
[2018-09-23 08:58] LABS: INR 1.19 (0.85-1.15); PROTHROMBIN TIME 12.5 SEC (9.6-11.6)
[2018-09-23 09:00] LABS: ALBUMIN 2.4 g/dL (3.5-5.0); BILIRUBIN,TOTAL 0.8 mg/dL (0.2-1.0); TOTAL PROTEIN, SERUM 7.3 g/dL (6.0-8.3)
--- NOTE | 2018-09-23 10:03 | NUR ---
U/S GD PARACENTESIS PROCEDURE PERFORMED BY DR Chase SIBLEY. PUNCTURE SITE RLQ AND PATIENT TOLERATED PROCEDURE WELL. TOTAL REMOVED 3.9 LITERS OF CLOUDY YELLOW FLUID. SPECIMEN SENT TO LAB. END OF PROCEDURE AT 0930. CATHETER REMOVED AND DRESSING APPLIED. NO BLEEDING NOTED. DISCHARGE INSTRUCTIONS GIVEN TO PATIENT AND VERBALIZED UNDERSTANDING. DISCHARGED VIA W/C AT 1000. AAO X3 WITH NO C/O PAIN.
[2018-09-23 12:03] LABS: APPEARANCE BODY FLUID CLEAR (CLEAR); COLOR,BODY FLUID YELLOW (LT YELLOW); SPECIMENTYPE,BODY FLUID ASCITES; TOTAL VOLUME,BODY FLUID 3900 mL
[2018-09-23 12:04] LABS: BODY FLUID RBC 71 /cu. mm.; BODY FLUID WBC 62 /cu. mm.
[2018-09-23 12:09] LABS: BF LYMPHOCYTE 45 %; BF MESOTHELIAL 54 %
== END | disposition home or self-care (01) ==
LOC: RAH 08:15
PROVIDERS: ATTEND Internal Medicine Gastroenterology
DX: R18.8 Other ascites (principal)
CPT/HCPCS: 36415; 49083; 80053; 85025; 85610; 87071; 87205; 88108; 88305; 89051; A4215

== ENCOUNTER → 2018-09-30 | Outpatient (CLI) | payer OTHER ==
[~2018-09-30] MED LIST changes: +ALBUMIN (HUMAN) 25% 100 ML IV ONE; +ALBUMIN (HUMAN) 25% 100 ML IV SCH; +LIDOCAINE HCL 1% 20 ML VIAL ONE
[2018-09-30 08:33] LABS: BASOPHILS % (AUTO) 1.5 % (0.0-5.0); EOSINOPHILS % (AUTO) 4.1 % (0.0-8.0); HEMATOCRIT 35.7 % (36-48); LYMPHOCYTES % (AUTO) 29.4 % (21.0-51.0); MEAN CORPUSCULAR HEMOGLOBIN 29.9 pg (27.0-33.0); MEAN CORPUSCULAR HGB CONC 33.5 g/dL (32.0-36.0); MEAN CORPUSCULAR VOLUME 89.3 fL (79-99); MONOCYTES % (AUTO) 9.5 % (3.0-13.0); NEUTROPHILS % (AUTO) 55.5 % (40.0-77.0); PLATELET COUNT (AUTO) 86 K/uL (130-400); RED CELL DISTRIBUTION WIDTH 16.9 % (11.0-15.5); WHITE BLOOD COUNT (AUTO) 4.8 K/uL (4.8-10.8)
[2018-09-30 08:42] LABS: INR 1.22 (0.85-1.15); PROTHROMBIN TIME 12.8 SEC (9.6-11.6)
[2018-09-30 08:47] LABS: ALBUMIN 2.4 g/dL (3.5-5.0); BILIRUBIN,TOTAL 0.7 mg/dL (0.2-1.0); CREATININE 1.7 mg/dL (0.5-1.5); TOTAL PROTEIN, SERUM 7.5 g/dL (6.0-8.3)
--- NOTE | 2018-09-30 10:15 | NUR ---
U/S GD PARACENTESIS PROCEDURE PERFORMED BY DR Jose Elias DAY. PUNCTURE SITE RLQ AND PATIENT TOLERATED PROCEDURE WELL. TOTAL REMOVED 4.5 LITERS OF CLOUDY YELLOW FLUID. ALBUMIN 25% 25 GRAMS IV GIVEN POST PROCEDURE AND SPECIMEN SENT TO LAB. END OF PROCEDURE AT 0945. CATHETER REMOVED AND DRESSING APPLIED. NO BLEEDING NOTED. DISCHARGE INSTRUCTIONS GIVEN TO PATIENT AND VERBALIZED UNDERSTANDING. DISCHARGED VIA AMBUALTION AT 1015. AAO X3 WITH NO C/O PAIN.
[2018-09-30 13:10] LABS: SPECIMENTYPE,BODY FLUID ASCITES
[2018-09-30 13:11] LABS: APPEARANCE BODY FLUID CLEAR (CLEAR); BODY FLUID RBC 1483 /cu. mm.; BODY FLUID WBC 94 /cu. mm.; COLOR,BODY FLUID YELLOW (LT YELLOW); TOTAL VOLUME,BODY FLUID 4500 mL
[2018-09-30 13:27] LABS: BF LYMPHOCYTE 52 %; BF MESOTHELIAL 41 %; BF MONOCYTE 7 %
== END | disposition home or self-care (01) ==
LOC: RAH 08:10
PROVIDERS: ATTEND Internal Medicine Gastroenterology
DX: R18.8 Other ascites (principal); Z79.01 Long term (current) use of anticoagulants
CPT/HCPCS: 36415; 49083; 80053; 85025; 85610; 87071; 87205; 88108; 88305; 89051; 96365; A4215; P9046

== ENCOUNTER → 2018-10-17 | Outpatient (CLI) | payer OTHER ==
--- NOTE | 2018-10-17 10:05 | NUR ---
U/S GD PARACENTESIS PROCEDURE PERFORMED BY DR SIBLEY. PUNCTURE SITE RIGHT LOWER QUADRANT AND PATIENT TOLERATED PROCEDURE WELL. TOTAL REMOVED 6.7 LITERS OF CLOUDY YELLOW FLUID. END OF PROCEDURE AT 1055. CATHETER REMOVED AND DRESSING APPLIED. NO BLEEDING NOTED. SPECIMEN SENT TO LAB. ALBUMIN 25 % 50 GRAMS GIVEN IV PER MD ORDERS. DISCHARGE INSTRUCTIONS GIVEN TO PATIENT AND VERBALIZED UNDERSTANDING @ 1115. DISCHARGED AMBULATORY, STABLE, AAO X3 WITH NO C/O PAIN.
[2018-10-17 13:13] LABS: SPECIMENTYPE,BODY FLUID ASCITES
[2018-10-17 13:14] LABS: COLOR,BODY FLUID YELLOW (LT YELLOW); TOTAL VOLUME,BODY FLUID 6700 mL
[2018-10-17 13:29] LABS: APPEARANCE BODY FLUID SLIGHTLY CLOUDY (CLEAR); BODY FLUID WBC 79 /cu. mm.
[2018-10-17 13:30] LABS: BODY FLUID RBC 150 /cu. mm.
[2018-10-17 13:48] LABS: BF LYMPHOCYTE 27 %; BF MONOCYTE 72 %
== END | disposition home or self-care (01) ==
LOC: RAH 10:00
PROVIDERS: ATTEND Internal Medicine Gastroenterology
DX: R18.8 Other ascites (principal)
CPT/HCPCS: 49083; 87071; 87205; 88108; 88305; 89051; 96365; A4215; P9046

== ENCOUNTER → 2018-10-25 | Outpatient (CLI) | payer OTHER ==
[~2018-10-25] MED LIST changes: -ALBUMIN (HUMAN) 25% 100 ML IV ONE; -ALBUMIN (HUMAN) 25% 100 ML IV SCH; -LIDOCAINE HCL 1% 20 ML VIAL ONE
[2018-10-25 09:10] LABS: INR 1.22 (0.85-1.15); PROTHROMBIN TIME 12.8 SEC (9.6-11.6)
[2018-10-25 09:12] LABS: CREATININE 1.3 mg/dL (0.5-1.5); POTASSIUM 4.6 mmol/L (3.5-5.1)
[2018-10-25 09:16] LABS: ALBUMIN 2.7 g/dL (3.5-5.0); TOTAL PROTEIN, SERUM 7.7 g/dL (6.0-8.3)
[2018-10-25 09:21] LABS: BASOPHILS % (AUTO) 0.9 % (0.0-5.0); EOSINOPHILS % (AUTO) 1.9 % (0.0-8.0); MEAN CORPUSCULAR HEMOGLOBIN 30.6 pg (27.0-33.0); MEAN CORPUSCULAR HGB CONC 33.3 g/dL (32.0-36.0); MEAN CORPUSCULAR VOLUME 91.7 fL (79-99); MONOCYTES % (AUTO) 12.7 % (3.0-13.0); NEUTROPHILS % (AUTO) 65.5 % (40.0-77.0); PLATELET COUNT (AUTO) 88 K/uL (130-400); RED BLOOD CELL COUNT(AUTO) 3.71 MIL/uL (4.00-5.50); RED CELL DISTRIBUTION WIDTH 18.2 % (11.0-15.5); WHITE BLOOD COUNT (AUTO) 4.8 K/uL (4.8-10.8)
--- NOTE | 2018-10-25 11:30 | NUR ---
U/S GD PARACENTESIS PROCEDURE PERFORMED BY DR Chase SIBLEY. PUNCTURE SITE RLQ AND PATIENT TOLERATED PROCEDURE WELL. TOTAL REMOVED 3.9 LITERS OF CLOUDY YELLOW FLUID. SPECIMEN SENT TO LAB. END OF PROCEDURE AT 1100. CATHETER REMOVED AND DRESSING APPLIED. NO BLEEDING NOTED. DISCHARGE INSTRUCTIONS GIVEN TO PATIENT AND VERBALIZED UNDERSTANDING. DISCHARGED VIA AMBULATION AT 1130. AAO X3 WITH NO C/O PAIN.
[2018-10-25 14:14] LABS: APPEARANCE BODY FLUID CLEAR (CLEAR); COLOR,BODY FLUID LT YELLOW (LT YELLOW); SPECIMENTYPE,BODY FLUID ASCITES
[2018-10-25 14:15] LABS: BODY FLUID WBC 65 /cu. mm.; TOTAL VOLUME,BODY FLUID 3900 mL
[2018-10-25 14:16] LABS: BODY FLUID RBC 725 /cu. mm.
[2018-10-25 14:20] LABS: BF LYMPHOCYTE 41 %; BF MESOTHELIAL 18 %; BF MONOCYTE 5 %
== END | disposition home or self-care (01) ==
LOC: RAH 08:29
PROVIDERS: ATTEND Internal Medicine Gastroenterology
DX: R18.8 Other ascites (principal)
CPT/HCPCS: 36415; 49083; 80053; 85025; 85610; 87071; 87205; 88108; 88305; 89051; A4215

== ENCOUNTER → 2018-11-08 | Outpatient (CLI) | payer OTHER ==
--- NOTE | 2018-11-08 08:45 | NUR ---
U/S GD PARACENTESIS PROCEDURE PERFORMED BY DR DAY. PUNCTURE SITE RLQ AND PATIENT TOLERATED PROCEDURE WELL. TOTAL REMOVED 3.7 LITERS OF CLOUDY YELLOW FLUID END OF PROCEDURE AT 0905. CATHETER REMOVED AND DRESSING APPLIED. NO BLEEDING NOTED. SPECIMEN SENT TO LAB. DISCHARGE INSTRUCTIONS GIVEN TO PATIENT AND VERBALIZED UNDERSTANDING. DISCHARGED AMBULATORY, STABLE, AAO X3 WITH NO C/O PAIN.
[2018-11-08 11:31] LABS: APPEARANCE BODY FLUID CLOUDY (CLEAR); COLOR,BODY FLUID ORANGE (LT YELLOW); SPECIMENTYPE,BODY FLUID ASCITES; TOTAL VOLUME,BODY FLUID 3700 mL
[2018-11-08 11:32] LABS: BODY FLUID WBC 52 /cu. mm.
[2018-11-08 11:33] LABS: BODY FLUID RBC 7920 /cu. mm.
[2018-11-08 12:05] LABS: BF LYMPHOCYTE 52 %; BF MESOTHELIAL 47 %
== END | disposition home or self-care (01) ==
LOC: RAH 08:00
PROVIDERS: ATTEND Internal Medicine Gastroenterology
DX: R18.8 Other ascites (principal)
CPT/HCPCS: 49083; 87071; 87205; 89051; A4215

== ENCOUNTER → 2018-12-20 | Outpatient (CLI) | payer OTHER ==
[~2018-12-20] VITALS: Ht 157.5 cm; Wt 72.6 kg
[~2018-12-20] MED LIST changes: +ALBUMIN (HUMAN) 25% 200 ML IV SCH
[2018-12-20 08:47] LABS: BASOPHILS % (AUTO) 0.9 % (0.0-5.0); EOSINOPHILS % (AUTO) 3.7 % (0.0-8.0); MEAN CORPUSCULAR HEMOGLOBIN 32.1 pg (27.0-33.0); MEAN CORPUSCULAR HGB CONC 33.9 g/dL (32.0-36.0); MEAN CORPUSCULAR VOLUME 94.9 fL (79-99); MONOCYTES % (AUTO) 13.6 % (3.0-13.0); NEUTROPHILS % (AUTO) 60.8 % (40.0-77.0); PLATELET COUNT (AUTO) 80 K/uL (130-400); RED BLOOD CELL COUNT(AUTO) 3.37 MIL/uL (4.00-5.50); RED CELL DISTRIBUTION WIDTH 15.5 % (11.0-15.5); WHITE BLOOD COUNT (AUTO) 3.1 K/uL (4.8-10.8)
[2018-12-20 08:58] LABS: CREATININE 1.2 mg/dL (0.5-1.5); POTASSIUM 5.1 mmol/L (3.5-5.1)
[2018-12-20 09:01] LABS: INR 1.35 (0.85-1.15); PROTHROMBIN TIME 14.1 SEC (9.6-11.6)
[2018-12-20 09:02] LABS: ALBUMIN 2.5 g/dL (3.5-5.0); BILIRUBIN,TOTAL 1.3 mg/dL (0.2-1.0); TOTAL PROTEIN, SERUM 6.9 g/dL (6.0-8.3)
--- NOTE | 2018-12-20 09:45 | NUR ---
U/S GD PARACENTESIS PROCEDURE PERFORMED BY DR SIBLEY. PUNCTURE SITE RIGHT LOWER QUADRANT AND PATIENT TOLERATED PROCEDURE WELL. TOTAL REMOVED 8.5 LITERS OF CLOUDY YELLOW. ALBUMIN 25% 50 GRAMS IV GIVEN POST PROCEDURE. SPECIMEN SENT TO LAB. END OF PROCEDURE AT 1015. CATHETER REMOVED AND DRESSING APPLIED. NO BLEEDING NOTED. DISCHARGE INSTRUCTIONS GIVEN TO PATIENT AND VERBALIZED UNDERSTANDING. DISCHARGED VIA AMBULATION AT 1040. AAO X3 WITH NO C/O PAIN.
[2018-12-20 12:26] LABS: APPEARANCE BODY FLUID CLEAR (CLEAR); BODY FLUID WBC 49 /cu. mm.; COLOR,BODY FLUID YELLOW (LT YELLOW); SPECIMENTYPE,BODY FLUID ASCITES; TOTAL VOLUME,BODY FLUID 8500 mL
[2018-12-20 12:27] LABS: BODY FLUID RBC 32 /cu. mm.
[2018-12-20 13:07] LABS: BF LYMPHOCYTE 22 %; BF MESOTHELIAL 75 %
== END ==
LOC: RAH 07:59
PROVIDERS: ATTEND Internal Medicine Gastroenterology
DX: R18.8 Other ascites (principal); F15.90 Other stimulant use, unspecified, uncomplicated; Z79.899 Other long term (current) drug therapy; Z83.3 Family history of diabetes mellitus
CPT/HCPCS: 36415; 49083; 80053; 85025; 85610; 87071; 87205; 88108; 88305; 89051; A4215; P9046

== ENCOUNTER → 2018-12-26 | Outpatient (CLI) | payer OTHER ==
[~2018-12-26] VITALS: Ht 157.5 cm; Wt 72.6 kg
[~2018-12-26] MED LIST changes: +ALBUMIN (HUMAN) 25% 100 ML IV SCH; -ALBUMIN (HUMAN) 25% 200 ML IV SCH
--- NOTE | 2018-12-26 09:15 | NUR ---
U/S GD PARACENTESIS PROCEDURE PERFORMED BY DR DAY. PUNCTURE SITE RIGHT LOWER QUADRANT AND PATIENT TOLERATED PROCEDURE WELL. TOTAL REMOVED 850 MILLILITERS OF CLOUDY YELLOW. ALBUMIN 25% 25 GRAMS IV GIVEN POST PROCEDURE. SPECIMEN SENT TO LAB. END OF PROCEDURE AT 924. CATHETER REMOVED AND DRESSING APPLIED. NO BLEEDING NOTED. DISCHARGE INSTRUCTIONS GIVEN TO PATIENT AND VERBALIZED UNDERSTANDING. DISCHARGED VIA AMBULATION AT 0945. AAO X3 WITH NO C/O PAIN.
[2018-12-26 13:23] LABS: APPEARANCE BODY FLUID CLEAR (CLEAR); COLOR,BODY FLUID YELLOW (LT YELLOW); SPECIMENTYPE,BODY FLUID ASCITES; TOTAL VOLUME,BODY FLUID 850 mL
[2018-12-26 13:24] LABS: BODY FLUID RBC 1329 /cu. mm.; BODY FLUID WBC 170 /cu. mm.
[2018-12-26 13:40] LABS: BF EOSINOPHIL 1 %; BF LYMPHOCYTE 53 %; BF MESOTHELIAL 33 %; BF MONOCYTE 13 %
== END | disposition home or self-care (01) ==
LOC: RAH 07:59
PROVIDERS: ATTEND Internal Medicine Gastroenterology
DX: R18.8 Other ascites (principal); F15.90 Other stimulant use, unspecified, uncomplicated; Z79.899 Other long term (current) drug therapy; Z87.891 Personal history of nicotine dependence; Z83.3 Family history of diabetes mellitus
CPT/HCPCS: 49083; 87071; 87205; 88108; 88305; 89051; 96365; A4215; P9046

== ENCOUNTER → 2019-01-03 | Outpatient (CLI) | payer OTHER ==
[~2019-01-03] MED LIST changes: -ALBUMIN (HUMAN) 25% 100 ML IV SCH
--- NOTE | 2019-01-03 08:45 | NUR ---
U/S GD PARACENTESIS PROCEDURE PERFORMED BY DR SIBLEY. PUNCTURE SITE RIGHT LOWER QUADRANT AND PATIENT TOLERATED PROCEDURE WELL. TOTAL REMOVED 3.5 LITERS OF CLOUDY YELLOW. SPECIMEN SENT TO LAB. END OF PROCEDURE AT 0920. CATHETER REMOVED AND DRESSING APPLIED. NO BLEEDING NOTED. DISCHARGE INSTRUCTIONS GIVEN TO PATIENT AND VERBALIZED UNDERSTANDING. DISCHARGED VIA AMBULATION AT 0945. AAO X3 WITH NO C/O PAIN.
[2019-01-03 11:09] LABS: SPECIMENTYPE,BODY FLUID ASCITES
[2019-01-03 11:10] LABS: APPEARANCE BODY FLUID CLEAR (CLEAR); BODY FLUID RBC 122 /cu. mm.; BODY FLUID WBC 129 /cu. mm.; COLOR,BODY FLUID YELLOW (LT YELLOW); TOTAL VOLUME,BODY FLUID 3500 mL
[2019-01-03 11:28] LABS: BF LYMPHOCYTE 42 %; BF MESOTHELIAL 58 %
== END ==
LOC: RAH 10:00
PROVIDERS: ATTEND Internal Medicine Gastroenterology
DX: R18.8 Other ascites (principal)
CPT/HCPCS: 49083; 87071; 87205; 88108; 88305; 89051; A4215

== ENCOUNTER → 2019-01-10 | Outpatient (CLI) | payer OTHER ==
--- NOTE | 2019-01-10 08:35 | NUR ---
U/S GD PARACENTESIS PROCEDURE PERFORMED BY DR SIBLEY. PUNCTURE SITE RIGHT LOWER QUADRANT AND PATIENT TOLERATED PROCEDURE WELL. TOTAL REMOVED 3.1 LITERS OF CLOUDY YELLOW. SPECIMEN SENT TO LAB. END OF PROCEDURE AT 0945. CATHETER REMOVED AND DRESSING APPLIED. NO BLEEDING NOTED. DISCHARGE INSTRUCTIONS GIVEN TO PATIENT AND VERBALIZED UNDERSTANDING. DISCHARGED VIA AMBULATION AT 1005. AAO X3 WITH NO C/O PAIN.
[2019-01-10 14:12] LABS: APPEARANCE BODY FLUID CLEAR (CLEAR); COLOR,BODY FLUID YELLOW (LT YELLOW); SPECIMENTYPE,BODY FLUID ASCITES; TOTAL VOLUME,BODY FLUID 3100 mL
[2019-01-10 14:13] LABS: BODY FLUID RBC 348 /cu. mm.; BODY FLUID WBC 133 /cu. mm.
[2019-01-10 14:19] LABS: BF EOSINOPHIL 2 %; BF LYMPHOCYTE 38 %; BF MESOTHELIAL 49 %; BF MONOCYTE 11 %
== END ==
LOC: RAH 08:04
PROVIDERS: ATTEND Internal Medicine Gastroenterology
DX: R18.8 Other ascites (principal)
CPT/HCPCS: 49083; 87071; 87205; 88108; 88305; 89051; A4215

== ENCOUNTER → 2019-01-17 | Outpatient (CLI) | payer OTHER ==
[2019-01-17 08:17] LABS: HEMATOCRIT 32.7 % (36-48); MEAN CORPUSCULAR HEMOGLOBIN 30.7 pg (27.0-33.0); MEAN CORPUSCULAR HGB CONC 33.2 g/dL (32.0-36.0); MEAN CORPUSCULAR VOLUME 92.5 fL (79-99); PLATELET COUNT (AUTO) 87 K/uL (130-400); RED BLOOD CELL COUNT(AUTO) 3.54 MIL/uL (4.00-5.50); RED CELL DISTRIBUTION WIDTH 15.7 % (11.0-15.5)
[2019-01-17 08:28] LABS: CREATININE 1.1 mg/dL (0.5-1.5); POTASSIUM 4.1 mmol/L (3.5-5.1)
[2019-01-17 08:29] LABS: INR 1.21 (0.85-1.15); PROTHROMBIN TIME 12.7 SEC (9.6-11.6)
[2019-01-17 08:34] LABS: ALBUMIN 2.8 g/dL (3.5-5.0); BILIRUBIN,TOTAL 1.2 mg/dL (0.2-1.0); TOTAL PROTEIN, SERUM 7.7 g/dL (6.0-8.3)
[2019-01-17 08:55] LABS: EOSINOPHILS % (MANUAL) 4 % (1-6); LYMPHOCYTES % (MANUAL) 25 % (22-44); MAN.DIFF COMMENT-IMPRESSION MANUAL DIFFERENTIAL; MONOCYTES % (MANUAL) 6 % (2-9); SEGMENTED NEUTROPHILS % 65 % (40-70)
[2019-01-17 08:57] LABS: PLATELET MORPHOLOGY COMMENT DECREASED
--- NOTE | 2019-01-17 09:30 | NUR ---
U/S GD PARACENTESIS PROCEDURE PERFORMED BY DR Man KANG. PUNCTURE SITE RLQ AND PATIENT TOLERATED PROCEDURE WELL. TOTAL REMOVED 4.7 LITERS OF CLOUDY YELLOW FLUID. END OF PROCEDURE AT 0900. CATHETER REMOVED AND DRESSING APPLIED. NO BLEEDING NOTED. DISCHARGE INSTRUCTIONS GIVEN TO PATIENT AND VERBALIZED UNDERSTANDING. DISCHARGED VIA AMBULATION AT 0930. AAO X3 WITH NO C/O PAIN.
[2019-01-17 14:39] LABS: APPEARANCE BODY FLUID CLEAR (CLEAR); COLOR,BODY FLUID LT YELLOW (LT YELLOW); SPECIMENTYPE,BODY FLUID ASCITES; TOTAL VOLUME,BODY FLUID 4700 mL
[2019-01-17 14:40] LABS: BODY FLUID RBC 188 /cu. mm.; BODY FLUID WBC 54 /cu. mm.
[2019-01-17 14:47] LABS: BF LYMPHOCYTE 61 %; BF MONOCYTE 9 %
== END ==
LOC: RAH 08:00
PROVIDERS: ATTEND Internal Medicine Gastroenterology
DX: R18.8 Other ascites (principal); Z79.899 Other long term (current) drug therapy; Z87.891 Personal history of nicotine dependence; Z83.3 Family history of diabetes mellitus
CPT/HCPCS: 36415; 49083; 80053; 85025; 85610; 87071; 87205; 88108; 88305; 89051

== ENCOUNTER → 2019-01-24 | Outpatient (CLI) | payer OTHER ==
[~2019-01-24] MED LIST changes: +ALBUMIN (HUMAN) 25% 100 ML IV ONE
--- NOTE | 2019-01-24 08:45 | NUR ---
U/S GD PARACENTESIS PROCEDURE PERFORMED BY DR. GARAY. PUNCTURE SITE LEFT LOWER QUADRANT AND PATIENT TOLERATED PROCEDURE WELL. TOTAL REMOVED 7.0 LITERS OF CLOUDY YELLOW ASCITES FLUID. END OF PROCEDURE AT 0915. CATHETER REMOVED AND DRESSING APPLIED. NO BLEEDING NOTED. SPECIMEN SENT TO LAB. ALBUMIN 25 % 50 GRAMS GIVEN IV PER MD ORDERS. DISCHARGE INSTRUCTIONS GIVEN TO PATIENT AND VERBALIZED UNDERSTANDING. DISCHARGED AMBULATORY @ 1005, STABLE, AAO X3 WITH NO C/O PAIN.
[2019-01-24 13:53] LABS: BF LYMPHOCYTE 24 %; BF MESOTHELIAL 61 %; BF MONOCYTE 13 %
[2019-01-24 13:55] LABS: APPEARANCE BODY FLUID CLEAR (CLEAR); COLOR,BODY FLUID YELLOW (LT YELLOW); SPECIMENTYPE,BODY FLUID ASCITES; TOTAL VOLUME,BODY FLUID 7000 mL
[2019-01-24 13:56] LABS: BODY FLUID RBC 147 /cu. mm.; BODY FLUID WBC 97 /cu. mm.
== END ==
LOC: RAH 08:03
PROVIDERS: ATTEND Internal Medicine Gastroenterology
DX: R18.8 Other ascites (principal)
CPT/HCPCS: 49083; 87071; 87205; 88108; 88305; 89051; 96365; A4215; P9046 ×2

== ENCOUNTER → 2019-01-31 | Outpatient (CLI) | payer OTHER ==
[~2019-01-31] MED LIST changes: -ALBUMIN (HUMAN) 25% 100 ML IV ONE; +ALBUMIN (HUMAN) 25% 100 ML IV SCH
--- NOTE | 2019-01-31 09:30 | NUR ---
U/S GD PARACENTESIS PROCEDURE PERFORMED BY DR Chase SIBLEY. PUNCTURE SITE RLQ AND PATIENT TOLERATED PROCEDURE WELL. TOTAL REMOVED 4.8 LITERS OF BLOOD TINGED FLUID. PATIENT REFUSED ALBUMIN INFUSION ON THIS VISIT. SPECIMEN SENT TO LAB. END OF PROCEDURE AT 0900. CATHETER REMOVED AND DRESSING APPLIED. NO BLEEDING NOTED. DISCHARGE INSTRUCTIONS GIVEN TO PATIENT AND VERBALIZED UNDERSTANDING. DISCHARGED VIA AMBULATION AT 0930. AAO X3 WITH NO C/O PAIN.
[2019-01-31 14:14] LABS: APPEARANCE BODY FLUID CLOUDY (CLEAR); COLOR,BODY FLUID RED (LT YELLOW); SPECIMENTYPE,BODY FLUID ASCITES; TOTAL VOLUME,BODY FLUID 4800 mL
[2019-01-31 14:15] LABS: BODY FLUID RBC 1530 /cu. mm.; BODY FLUID WBC 42 /cu. mm.
[2019-01-31 14:18] LABS: BF LYMPHOCYTE 50 %; BF MESOTHELIAL 21 %; BF MONOCYTE 8 %
== END ==
LOC: RAH 07:56
PROVIDERS: ATTEND Internal Medicine Gastroenterology
DX: R18.8 Other ascites (principal)
CPT/HCPCS: 49083; 87071; 87205; 88108; 88305; 89051; A4215; P9046

== ENCOUNTER → 2019-02-07 | Outpatient (CLI) | payer OTHER ==
[~2019-02-07] VITALS: Ht 157.5 cm; Wt 72.6 kg
[~2019-02-07] MED LIST changes: -ALBUMIN (HUMAN) 25% 100 ML IV SCH; +ALBUMIN (HUMAN) 25% 200 ML IV SCH; +FURO40TA5 PO; +LEVO150T11 PO; +PANT40TA25 PO; +SPIR100T5 PO
--- NOTE | 2019-02-07 08:50 | NUR ---
U/S GD PARACENTESIS PROCEDURE PERFORMED BY DR DAY. PUNCTURE SITE RIGHT LOWER QUADRANT ABDOMEN AND PATIENT TOLERATED PROCEDURE WELL. TOTAL REMOVED 6.0 LITERS OF BLOOD TINGED FLUID. ALBUMIN 25% 50 GRAMS GIVEN IV PER PROTOCOL. SPECIMEN SENT TO LAB. END OF PROCEDURE AT 0930. CATHETER REMOVED AND DRESSING APPLIED. NO BLEEDING NOTED. DISCHARGE INSTRUCTIONS GIVEN TO PATIENT AND VERBALIZED UNDERSTANDING. DISCHARGED VIA AMBULATION AT 1000. AAO X3 WITH NO C/O PAIN.
[2019-02-07 13:37] LABS: APPEARANCE BODY FLUID CLOUDY (CLEAR); SPECIMENTYPE,BODY FLUID ASCITES
[2019-02-07 13:39] LABS: COLOR,BODY FLUID RED (LT YELLOW); TOTAL VOLUME,BODY FLUID 6000 mL
[2019-02-07 13:41] LABS: BODY FLUID RBC 3500 /cu. mm.; BODY FLUID WBC 70 /cu. mm.
[2019-02-07 13:56] LABS: BF LYMPHOCYTE 29 %; BF MESOTHELIAL 3 %; BF MONOCYTE 43 %
== END | disposition home or self-care (01) ==
LOC: RAH 08:06
PROVIDERS: ATTEND Internal Medicine Gastroenterology
DX: R18.8 Other ascites (principal); Z79.899 Other long term (current) drug therapy; Z83.3 Family history of diabetes mellitus
CPT/HCPCS: 49083; 87071; 87205; 88108; 88305; 89051; 96365; A4215; P9046

== ENCOUNTER 2019-02-10 10:34 | Day surgery (SDC) | payer OTHER ==
[~2019-02-10] VITALS: Ht 160 cm; Wt 70.3 kg
[~2019-02-10 10:34] MED LIST changes: -ALBUMIN (HUMAN) 25% 200 ML IV SCH; -FURO40TA5 PO; -LEVO150T11 PO; -PANT40TA25 PO; +SODIUM CHLORIDE 0.9% 1000ML 1,000 ML IV ONE; -SPIR100T5 PO
[2019-02-10 11:44] VITALS: BP 110/59
[2019-02-10] MEDS ORDERED: FURO40TA5 PO ×2 (11:58)
[2019-02-10] MEDS ORDERED: SPIR100T5 PO ×2 (11:58)
[2019-02-10] MEDS ORDERED: LEVO150T11 PO ×2 (11:58)
[2019-02-10] MEDS ORDERED: PANT40TA25 PO ×2 (11:58)
[2019-02-10] MEDS ORDERED: PROPOFOL 10 MG/ML 20ML VIAL IV ONE (12:25)
[2019-02-10 12:33] VITALS: BP 96/60
[2019-02-10 12:38] VITALS: BP 110/66
[2019-02-10 12:43] VITALS: BP 115/71
[2019-02-10 12:48] VITALS: BP 115/62
[2019-02-10 12:53] VITALS: BP 109/65
== END 2019-02-10 13:05 | disposition home or self-care (01) ==
LOC: DAH 10:34 → ENDO 10:34
PROVIDERS: ATTEND Internal Medicine
DX: I85.00 Esophageal varices without bleeding (principal); K31.7 Polyp of stomach and duodenum; K74.60 Unspecified cirrhosis of liver; K31.89 Other diseases of stomach and duodenum; K21.9 Gastro-esophageal reflux disease without esophagitis; I10 Essential (primary) hypertension; F41.9 Anxiety disorder, unspecified; F32.9 Major depressive disorder, single episode, unspecified; M81.0 Age-related osteoporosis without current pathological fracture; Z79.899 Other long term (current) drug therapy; Z72.89 Other problems related to lifestyle; Z83.3 Family history of diabetes mellitus
CPT/HCPCS: 43239; 88305; A4606; J2704; J7030

== ENCOUNTER → 2019-02-14 | Outpatient (CLI) | payer OTHER ==
[~2019-02-14] MED LIST changes: +ALBUMIN (HUMAN) 25% 200 ML IV SCH; +FURO40TA5 PO; +LEVO150T11 PO; +PANT40TA25 PO; -SODIUM CHLORIDE 0.9% 1000ML 1,000 ML IV ONE; +SPIR100T5 PO
--- NOTE | 2019-02-14 09:30 | NUR ---
U/S GD PARACENTESIS PROCEDURE PERFORMED BY DR Josie GARAY. PUNCTURE SITE RLQ AND PATIENT TOLERATED PROCEDURE WELL. TOTAL REMOVED 3 LITERS OF CLOUDY YELLOW FLUID. SPECIMEN SENT TO LAB. END OF PROCEDURE AT 0900. CATHETER REMOVED AND DRESSING APPLIED. NO BLEEDING NOTED. DISCHARGE INSTRUCTIONS GIVEN TO PATIENT AND VERBALIZED UNDERSTANDING. DISCHARGED VIA AMBULATION AT 0930. AAO X3 WITH NO C/O PAIN.
[2019-02-14 12:17] LABS: APPEARANCE BODY FLUID CLEAR (CLEAR); COLOR,BODY FLUID YELLOW (LT YELLOW); SPECIMENTYPE,BODY FLUID ASCITES; TOTAL VOLUME,BODY FLUID 3000 mL
[2019-02-14 12:18] LABS: BODY FLUID RBC 1125 /cu. mm.; BODY FLUID WBC 130 /cu. mm.
[2019-02-14 12:20] LABS: BF LYMPHOCYTE 38 %; BF MESOTHELIAL 56 %; BF MONOCYTE 3 %
== END ==
LOC: RAH 08:03
PROVIDERS: ATTEND Internal Medicine Gastroenterology
DX: R18.8 Other ascites (principal); Z79.899 Other long term (current) drug therapy; Z83.3 Family history of diabetes mellitus
CPT/HCPCS: 49083; 87071; 87205; 88108; 88305; 89051; A4215; P9046

== ENCOUNTER → 2019-02-21 | Outpatient (CLI) | payer OTHER ==
[~2019-02-21] VITALS: Ht 160 cm; Wt 70.3 kg
[~2019-02-21] MED LIST changes: -FURO20TA4 PO; -LEVO137T2 PO; -SPIR50TA5 PO
[2019-02-21 08:26] LABS: BASOPHILS % (AUTO) 0.8 % (0.0-5.0); HEMATOCRIT 32.7 % (36-48); MEAN CORPUSCULAR HEMOGLOBIN 29.6 pg (27.0-33.0); MEAN CORPUSCULAR HGB CONC 33.6 g/dL (32.0-36.0); MONOCYTES % (AUTO) 14.8 % (3.0-13.0); NEUTROPHILS % (AUTO) 60.4 % (40.0-77.0); PLATELET COUNT (AUTO) 82 K/uL (130-400); RED BLOOD CELL COUNT(AUTO) 3.71 MIL/uL (4.00-5.50); RED CELL DISTRIBUTION WIDTH 15.2 % (11.0-15.5); WHITE BLOOD COUNT (AUTO) 2.9 K/uL (4.8-10.8)
[2019-02-21 08:41] LABS: ALBUMIN 2.9 g/dL (3.5-5.0); BILIRUBIN,TOTAL 1.8 mg/dL (0.2-1.0); CREATININE 1.2 mg/dL (0.5-1.5); POTASSIUM 4.1 mmol/L (3.5-5.1); TOTAL PROTEIN, SERUM 7.6 g/dL (6.0-8.3)
[2019-02-21 08:49] LABS: INR 1.26 (0.85-1.15); PROTHROMBIN TIME 13.2 SEC (9.6-11.6)
--- NOTE | 2019-02-21 09:20 | NUR ---
U/S GD PARACENTESIS PROCEDURE PERFORMED BY DR SIBLEY. PUNCTURE SITE RIGHT UPPER QUADRANT AND PATIENT TOLERATED PROCEDURE WELL. TOTAL REMOVED 6.5 LITERS OF CLOUDY YELLOW FLUID. END OF PROCEDURE AT 0950. CATHETER REMOVED AND DRESSING APPLIED. NO BLEEDING NOTED. SPECIMEN SENT TO LAB. ALBUMIN 25% 50 GRAMS GIVEN IV PER HOSPITAL PROTOCOL. DISCHARGE INSTRUCTIONS GIVEN TO PATIENT AND VERBALIZED UNDERSTANDING. DISCHARGED AMBULATORY, AT 1030, STABLE, AAO X3 WITH NO C/O PAIN.
[2019-02-21 09:54] LABS: BASOPHILS % (MANUAL) 3 % (0-2); EOSINOPHILS % (MANUAL) 2 % (1-6); LYMPHOCYTES % (MANUAL) 20 % (22-44); MONOCYTES % (MANUAL) 12 % (2-9); SEGMENTED NEUTROPHILS % 63 % (40-70)
[2019-02-21 09:55] LABS: MAN.DIFF COMMENT-IMPRESSION MANUAL DIFFERENTIAL; PLATELET MORPHOLOGY COMMENT DECREASED
[2019-02-21 13:48] LABS: APPEARANCE BODY FLUID CLEAR (CLEAR); BODY FLUID WBC 100 /cu. mm.; COLOR,BODY FLUID YELLOW (LT YELLOW); SPECIMENTYPE,BODY FLUID ASCITES; TOTAL VOLUME,BODY FLUID 6500 mL
[2019-02-21 13:49] LABS: BODY FLUID RBC 420 /cu. mm.
[2019-02-21 13:54] LABS: BF LYMPHOCYTE 37 %; BF MESOTHELIAL 57 %; BF MONOCYTE 5 %
== END ==
LOC: RAH 08:00
PROVIDERS: ATTEND Internal Medicine Gastroenterology
DX: R18.8 Other ascites (principal)
CPT/HCPCS: 36415; 49083; 80053; 85025; 85610; 87071; 87205; 88108; 88305; 89051; 96365; A4215; P9046

== ENCOUNTER → 2019-02-28 | Outpatient (CLI) | payer OTHER ==
--- NOTE | 2019-02-28 10:30 | NUR ---
U/S GD PARACENTESIS PROCEDURE PERFORMED BY DR KANG. PUNCTURE SITE RIGHT LOWER QUADRANT OF ABDOMEN. PATIENT TOLERATED PROCEDURE WELL. TOTAL REMOVED 4.2 LITERS OF CLOUDY SIFUENTES COLORED ASCITES FLUID. SPECIMEN SENT TO LAB. END OF PROCEDURE AT 0925. CATHETER REMOVED AND DRESSING APPLIED. NO BLEEDING NOTED. PT DID NOT QUALIFY FOR ALBUMIN PROTOCOL [place] [facility] [place]. DISCHARGE INSTRUCTIONS GIVEN TO PATIENT AND VERBALIZED UNDERSTANDING. DISCHARGED AMBULATORY AT 0935. STABLE, AAO X3 WITH NO C/O PAIN. Addendum: 02/28/19 at 1142 by EDI BRIONES RN RN U/S GD PARACENTESIS PROCEDURE PERFORMED BY DR KANG. PUNCTURE SITE RIGHT LOWER QUADRANT OF ABDOMEN. PATIENT TOLERATED PROCEDURE WELL. TOTAL REMOVED 2.7 LITERS OF CLOUDY SIFUENTES COLORED ASCITES FLUID. SPECIMEN SENT TO LAB. END OF PROCEDURE AT 1100. CATHETER REMOVED AND DRESSING APPLIED. NO BLEEDING NOTED. ALBUMIN 25% 50 GRAMS GIVEN IV UNDER [facility] [place]. DISCHARGE INSTRUCTIONS GIVEN TO PATIENT AND VERBALIZED UNDERSTANDING. DISCHARGED AMBULATORY AT 1120. STABLE, AAO X3 WITH NO C/O PAIN.
[2019-02-28 17:23] LABS: APPEARANCE BODY FLUID SLIGHTLY CLOUDY (CLEAR); BODY FLUID WBC 108 /cu. mm.; COLOR,BODY FLUID LT YELLOW (LT YELLOW); SPECIMENTYPE,BODY FLUID ASCITES; TOTAL VOLUME,BODY FLUID 4300 mL
[2019-02-28 17:24] LABS: BODY FLUID RBC 215 /cu. mm.
[2019-02-28 17:25] LABS: BF LYMPHOCYTE 49 %; BF MESOTHELIAL 45 %; BF MONOCYTE 3 %
== END | disposition home or self-care (01) ==
LOC: RAH 09:59
PROVIDERS: ATTEND Internal Medicine Gastroenterology
DX: R18.8 Other ascites (principal); Z79.899 Other long term (current) drug therapy; Z83.3 Family history of diabetes mellitus
CPT/HCPCS: 49083; 87071; 87205; 88108; 88305; 89051; A4215; P9046

== ENCOUNTER → 2019-03-16 | Outpatient (CLI) | payer OTHER ==
[~2019-03-16] VITALS: Ht 160 cm; Wt 70.3 kg
[~2019-03-16] MED LIST changes: +ALBUMIN (HUMAN) 25% 200 ML IV ONE; -ALBUMIN (HUMAN) 25% 200 ML IV SCH
--- NOTE | 2019-03-16 08:40 | NUR ---
U/S GD PARACENTESIS PROCEDURE PERFORMED BY DR. SIBLEY. PUNCTURE SITE RIGHT LOWER QUADRANT OF ABDOMEN. PATIENT TOLERATED PROCEDURE WELL. TOTAL REMOVED 4.0 LITERS OF CLOUDY SIFUENTES COLORED ASCITES FLUID. SPECIMEN SENT TO LAB. END OF PROCEDURE AT 0915. CATHETER REMOVED AND DRESSING APPLIED. NO BLEEDING NOTED. ALBUMIN 25% 50 GRAMS GIVEN [place] [facility] [place]. DISCHARGE INSTRUCTIONS GIVEN TO PATIENT AND VERBALIZED UNDERSTANDING. DISCHARGED AMBULATORY AT 0935. PT STABLE, AAO X3 WITH NO C/O PAIN.
[2019-03-16 13:51] LABS: APPEARANCE BODY FLUID CLEAR (CLEAR); BODY FLUID RBC 892 /cu. mm.; BODY FLUID WBC 112 /cu. mm.; COLOR,BODY FLUID YELLOW (LT YELLOW); SPECIMENTYPE,BODY FLUID ASCITES; TOTAL VOLUME,BODY FLUID 4000 mL
[2019-03-16 13:55] LABS: BF LYMPHOCYTE 18 %; BF MESOTHELIAL 75 %; BF MONOCYTE 7 %
== END | disposition home or self-care (01) ==
LOC: RAH 07:58
PROVIDERS: ATTEND Internal Medicine Gastroenterology
DX: R18.8 Other ascites (principal)
CPT/HCPCS: 49083; 87071; 87205; 88108; 88305; 89051; 96365; A4215; P9046

== ENCOUNTER → 2019-03-23 | Outpatient (CLI) | payer OTHER ==
[~2019-03-23] VITALS: Ht 160 cm; Wt 70.3 kg
[~2019-03-23] MED LIST changes: +ALBUMIN (HUMAN) 25% 100 ML IV SCH; -ALBUMIN (HUMAN) 25% 200 ML IV ONE
--- NOTE | 2019-03-23 08:52 | NUR ---
PROCEDURE PATIENT SCHEDULED FOR U/S GD PARACENTESIS. IMAGES TAKEN AND REVIEWED BY DR Liz MUKHERJEE. SMALL AMOUNT OF FLUID SEEN AND PATIENT REQUESTED TO WAIT UNTIL NEXT WEEK FOR PROCEDURE. ENCOURAGED PATIENT TO NOTIFY DR Margaret ARGUETA IF NEEDING PROCEDURE TO BE DONE BEFORE Wednesday.
== END | disposition home or self-care (01) ==
LOC: RAH 07:53
PROVIDERS: ATTEND Internal Medicine Gastroenterology
DX: R18.8 Other ascites (principal)
CPT/HCPCS: 76705; P9046

== ENCOUNTER → 2019-03-30 | Outpatient (CLI) | payer OTHER ==
[~2019-03-30] MED LIST changes: -ALBUMIN (HUMAN) 25% 100 ML IV SCH; +ALBUMIN (HUMAN) 25% 200 ML IV ONE
--- NOTE | 2019-03-30 09:45 | NUR ---
U/S GD PARACENTESIS PROCEDURE PERFORMED BY DR Jose Elias DAY. PUNCTURE SITE RLQ AND PATIENT TOLERATED PROCEDURE WELL. TOTAL REMOVED 5 LITERS OF CLOUDY YELLOW FLUID. ALBUMIN 25% 25 GRAMS IV GIVEN DURING PROCEDURE. SPECIMEN SENT TO LAB. END OF PROCEDURE AT 0910. CATHETER REMOVED AND DRESSING APPLIED. NO BLEEDING NOTED. DISCHARGE INSTRUCTIONS GIVEN TO PATIENT AND VERBALIZED UNDERSTANDING. DISCHARGED VIA AMBULATION AT 0945. AAO X3 WITH NO C/O PAIN.
[2019-03-30 12:00] LABS: BASOPHILS % (AUTO) 0.8 % (0.0-5.0); EOSINOPHILS % (AUTO) 2.2 % (0.0-8.0); HEMATOCRIT 30.7 % (36-48); LYMPHOCYTES % (AUTO) 13.7 % (21.0-51.0); MEAN CORPUSCULAR HEMOGLOBIN 29.7 pg (27.0-33.0); MEAN CORPUSCULAR HGB CONC 33.8 g/dL (32.0-36.0); MONOCYTES % (AUTO) 10.9 % (3.0-13.0); NEUTROPHILS % (AUTO) 72.4 % (40.0-77.0); NUCLEATED RED BLOOD CELLS 0.1 % (0.0-0.19); PLATELET COUNT (AUTO) 78 K/uL (130-400); RED BLOOD CELL COUNT(AUTO) 3.49 MIL/uL (4.00-5.50); RED CELL DISTRIBUTION WIDTH 16.5 % (11.0-15.5); WHITE BLOOD COUNT (AUTO) 3.3 K/uL (4.8-10.8)
[2019-03-30 12:05] LABS: CREATININE 1.1 mg/dL (0.5-1.5); POTASSIUM 4.8 mmol/L (3.5-5.1)
[2019-03-30 12:09] LABS: ALBUMIN 3.2 g/dL (3.5-5.0); BILIRUBIN,TOTAL 1.2 mg/dL (0.2-1.0); INR 1.19 (0.85-1.15); PROTHROMBIN TIME 12.4 SEC (9.6-11.6)
[2019-03-30 14:29] LABS: APPEARANCE BODY FLUID SLIGHTLY CLOUDY (CLEAR); COLOR,BODY FLUID ORANGE (LT YELLOW); SPECIMENTYPE,BODY FLUID ASCITES; TOTAL VOLUME,BODY FLUID 5000 mL
[2019-03-30 14:30] LABS: BODY FLUID RBC 6160 /cu. mm.; BODY FLUID WBC 98 /cu. mm.
[2019-03-30 14:45] LABS: BF LYMPHOCYTE 29 %; BF MESOTHELIAL 68 %
== END | disposition home or self-care (01) ==
LOC: RAH 07:59
PROVIDERS: ATTEND Internal Medicine Gastroenterology
DX: R18.8 Other ascites (principal)
CPT/HCPCS: 36415; 49083; 80053; 85025; 85610; 87071; 87205; 88108; 88305; 89051; 96365; A4215; P9046

== ENCOUNTER → 2019-04-06 | Outpatient (CLI) | payer OTHER ==
[~2019-04-06] VITALS: Ht 160 cm; Wt 70.3 kg
[~2019-04-06] MED LIST changes: -ALBUMIN (HUMAN) 25% 200 ML IV ONE; +ALBUMIN (HUMAN) 25% 200 ML IV SCH
--- NOTE | 2019-04-06 08:50 | NUR ---
U/S GD PARACENTESIS PROCEDURE PERFORMED BY DR GARAY. PUNCTURE SITE RIGHT LOWER QUADRANT OF ABDOMEN AND PATIENT TOLERATED PROCEDURE WELL. TOTAL REMOVED 6.2 LITERS OF CLOUDY YELLOW ASCITES FLUID. END OF PROCEDURE AT 0940. CATHETER REMOVED AND DRESSING APPLIED. ALBUMIN 25% 50 GRAMS GIVEN DURING PROCEDURE PER [facility] [place] ALBUM[place] PROTOCOL. NO BLEEDING NOTED. DISCHARGE INSTRUCTIONS GIVEN TO PATIENT. PATIENT VERBALIZED UNDERSTANDING. PT STABLE, AAO X3 WITH NO C/O PAIN. SPECIMEN SENT TO LAB.
[2019-04-06 12:40] LABS: APPEARANCE BODY FLUID CLEAR (CLEAR); BODY FLUID RBC 1557 /cu. mm.; BODY FLUID WBC 157 /cu. mm.; COLOR,BODY FLUID YELLOW (LT YELLOW); SPECIMENTYPE,BODY FLUID ASCITES; TOTAL VOLUME,BODY FLUID 6200 mL
[2019-04-06 12:43] LABS: BF LYMPHOCYTE 21 %; BF MESOTHELIAL 69 %; BF MONOCYTE 9 %
== END | disposition home or self-care (01) ==
LOC: RAH 07:54
PROVIDERS: ATTEND Internal Medicine Gastroenterology
DX: R18.8 Other ascites (principal)
CPT/HCPCS: 49083; 87071; 87205; 88108; 88305; 89051; 96365; A4215; P9046

== ENCOUNTER → 2019-04-13 | Outpatient (CLI) | payer OTHER ==
[~2019-04-13] VITALS: Ht 160 cm; Wt 70.3 kg
[~2019-04-13] MED LIST changes: +ALBUMIN (HUMAN) 25% 200 ML IV ONE; -ALBUMIN (HUMAN) 25% 200 ML IV SCH
--- NOTE | 2019-04-13 08:50 | NUR ---
U/S GUIDED PARACENTESIS PROCEDURE PERFORMED BY DR. SIBLEY. PUNCTURE SITE LEFT LOWER QUADRANT OF ABDOMEN AND PATIENT TOLERATED PROCEDURE WELL. TOTAL REMOVED 5.3 LITERS OF CLOUDY BROWN ASCITES FLUID. END OF PROCEDURE AT 0925. CATHETER REMOVED AND DRESSING APPLIED. ALBUMIN 25% 50 GRAMS GIVEN IV DURING PROCEDURE PER [facility] [place] ALBUMIN PROTOCOL. NO BLEEDING NOTED. DISCHARGE INSTRUCTIONS GIVEN TO PATIENT. PATIENT VERBALIZED UNDERSTANDING. PT DISCHARGED AMBULATORY, STABLE, AAO X3 WITH NO C/O PAIN @ 0945. SPECIMEN SENT TO LAB.
[2019-04-13 12:02] LABS: APPEARANCE BODY FLUID CLEAR (CLEAR); BODY FLUID WBC 39 /cu. mm.; COLOR,BODY FLUID YELLOW (LT YELLOW); SPECIMENTYPE,BODY FLUID ASCITES; TOTAL VOLUME,BODY FLUID 5300 mL
[2019-04-13 12:03] LABS: BODY FLUID RBC 372 /cu. mm.
[2019-04-13 12:06] LABS: BF LYMPHOCYTE 28 %; BF MESOTHELIAL 68 %
== END ==
LOC: RAH 08:03
PROVIDERS: ATTEND Internal Medicine Gastroenterology
DX: R18.8 Other ascites (principal)
CPT/HCPCS: 49083; 87071; 87205; 88108; 89051; 96365; A4215; P9046

== ENCOUNTER → 2019-04-20 | Outpatient (CLI) | payer OTHER ==
[~2019-04-20] VITALS: Ht 160 cm; Wt 70.3 kg
[~2019-04-20] MED LIST changes: -ALBUMIN (HUMAN) 25% 200 ML IV ONE; +ALBUMIN (HUMAN) 25% 200 ML IV SCH
--- NOTE | 2019-04-20 09:15 | NUR ---
U/S GD PARACENTESIS. NOT DONE ULTRASOUND OF THE ABDOMEN PERFORMED BY JAYLA TEIXEIRA. DR. GODINEZ VIEWED IMAGES AND NOTED PATIENT NO FLUID TO SAFELY DO PROCEDURE. INFORMED PT OF RESULTS. PT DISCHARGED HOME AMBULATORY STABLE, AAO X3 WITH NO C/O PAIN.
[2019-04-20 09:32] LABS: ALBUMIN 3.1 g/dL (3.5-5.0); BASOPHILS % (AUTO) 0.7 % (0.0-5.0); BILIRUBIN,TOTAL 0.9 mg/dL (0.2-1.0); EOSINOPHILS % (AUTO) 2.2 % (0.0-8.0); HEMATOCRIT 30.4 % (36-48); INR 1.29 (0.85-1.15); LYMPHOCYTES % (AUTO) 14.8 % (21.0-51.0); MEAN CORPUSCULAR HEMOGLOBIN 29.8 pg (27.0-33.0); MEAN CORPUSCULAR HGB CONC 33.6 g/dL (32.0-36.0); MEAN CORPUSCULAR VOLUME 88.8 fL (79-99); MONOCYTES % (AUTO) 12.3 % (3.0-13.0); NUCLEATED RED BLOOD CELLS 0.1 % (0.0-0.19); PLATELET COUNT (AUTO) 70 K/uL (130-400); POTASSIUM 4.6 mmol/L (3.5-5.1); PROTHROMBIN TIME 13.4 SEC (9.6-11.6); RED BLOOD CELL COUNT(AUTO) 3.42 MIL/uL (4.00-5.50); RED CELL DISTRIBUTION WIDTH 17.8 % (11.0-15.5); TOTAL PROTEIN, SERUM 7.6 g/dL (6.0-8.3); WHITE BLOOD COUNT (AUTO) 2.6 K/uL (4.8-10.8)
[2019-04-20 10:40] LABS: EOSINOPHILS % (MANUAL) 4 % (1-6); LYMPHOCYTES % (MANUAL) 15 % (22-44); MAN.DIFF COMMENT-IMPRESSION MANUAL DIFFERENTIAL; MONOCYTES % (MANUAL) 5 % (2-9); PLATELET MORPHOLOGY COMMENT ADEQUATE; SEGMENTED NEUTROPHILS % 76 % (40-70)
== END | disposition home or self-care (01) ==
LOC: RAH 08:11
PROVIDERS: ATTEND Internal Medicine Gastroenterology
DX: R18.8 Other ascites (principal)
CPT/HCPCS: 36415; 76705; 80053; 82105; 82378; 85025; 85610; 86316; P9046

== ENCOUNTER → 2019-04-26 | Outpatient (CLI) | payer OTHER ==
--- NOTE | 2019-04-26 09:00 | NUR ---
U/S GD PARACENTESIS PROCEDURE PERFORMED BY DR STEWART. PUNCTURE SITE RIGHT LOWER QUADRANT OF ABDOMEN AND PATIENT TOLERATED PROCEDURE WELL. TOTAL REMOVED 6.5 LITERS OF CLOUDY YELLOW FLUID. END OF PROCEDURE AT 0940. CATHETER REMOVED AND DRESSING APPLIED. NO BLEEDING NOTED ALBUMIN 25% 50 GRAMS GIVEN DURING PROCEDURE PER [facility] [place] ALBUMIN PROTOCOL. DISCHARGE INSTRUCTIONS GIVEN TO PATIENT. PATIENT VERBALIZED UNDERSTANDING. PT DISCHARGED AMBULATORY, STABLE, AAO X3 WITH NO C/O PAIN. SPECIMEN SENT TO LAB.
[2019-04-26 15:53] LABS: APPEARANCE BODY FLUID SLIGHTLY CLOUDY (CLEAR); COLOR,BODY FLUID YELLOW (LT YELLOW); SPECIMENTYPE,BODY FLUID ASCITES; TOTAL VOLUME,BODY FLUID 650 mL
[2019-04-26 15:54] LABS: BODY FLUID RBC 246 /cu. mm.; BODY FLUID WBC 95 /cu. mm.
[2019-04-26 16:02] LABS: BF BASOPHIL 1 %; BF LYMPHOCYTE 24 %; BF MESOTHELIAL 44 %
== END | disposition home or self-care (01) ==
LOC: RAH 07:54
PROVIDERS: ATTEND Internal Medicine Gastroenterology
DX: R18.8 Other ascites (principal); K74.60 Unspecified cirrhosis of liver; M81.0 Age-related osteoporosis without current pathological fracture; I10 Essential (primary) hypertension; F41.9 Anxiety disorder, unspecified; F32.9 Major depressive disorder, single episode, unspecified; Z79.899 Other long term (current) drug therapy
CPT/HCPCS: 49083; 87071; 87205; 88108; 88305; 89051; 96365; A4215; P9046

== ENCOUNTER → 2019-05-04 | Outpatient (CLI) | payer OTHER ==
--- NOTE | 2019-05-04 11:30 | NUR ---
U/S GD PARACENTESIS PROCEDURE PERFORMED BY DR Josie GARAY. PUNCTURE SITE RLQ AND PATIENT TOLERATED PROCEDURE WELL. TOTAL REMOVED 5 LITERS OF CLOUDY YELLOW FLUID. ALBUMIN 25% 25 GRAMS IV GIVEN DURING PROCEDURE. SPECIMEN SENT TO LAB. END OF PROCEDURE AT 1100. CATHETER REMOVED AND DRESSING APPLIED. NO BLEEDING NOTED. DISCHARGE INSTRUCTIONS GIVEN TO PATIENT AND VERBALIZED UNDERSTANDING. DISCHARGED VIA AMBULATION AT 1130. AAO X3 WITH NO C/O PAIN
[2019-05-04 16:15] LABS: APPEARANCE BODY FLUID SLIGHTLY CLOUDY (CLEAR); COLOR,BODY FLUID LT YELLOW (LT YELLOW); SPECIMENTYPE,BODY FLUID ASCITES; TOTAL VOLUME,BODY FLUID 5000 mL
[2019-05-04 16:16] LABS: BODY FLUID WBC 88 /cu. mm.
[2019-05-04 16:17] LABS: BODY FLUID RBC 190 /cu. mm.
[2019-05-04 16:32] LABS: BF LYMPHOCYTE 34 %; BF MESOTHELIAL 38 %
== END ==
LOC: RAH 09:56
PROVIDERS: ATTEND Internal Medicine Gastroenterology
DX: R18.8 Other ascites (principal); K74.60 Unspecified cirrhosis of liver; I10 Essential (primary) hypertension; F41.9 Anxiety disorder, unspecified; F32.9 Major depressive disorder, single episode, unspecified; M81.0 Age-related osteoporosis without current pathological fracture; Z79.899 Other long term (current) drug therapy; Z72.89 Other problems related to lifestyle; Z83.3 Family history of diabetes mellitus
CPT/HCPCS: 49083; 87071; 87205; 88108; 89051; 96365; A4215; P9046

== ENCOUNTER → 2019-05-11 | Outpatient (CLI) | payer OTHER ==
[~2019-05-11] MED LIST changes: +ALBUMIN (HUMAN) 25% 200 ML IV ONE; -ALBUMIN (HUMAN) 25% 200 ML IV SCH
--- NOTE | 2019-05-11 08:50 | NUR ---
U/S GD PARACENTESIS PROCEDURE PERFORMED BY DR GARAY. PUNCTURE SITE LEFT LOWER QUADRANT OF ABDOMEN AND PATIENT TOLERATED PROCEDURE WELL. TOTAL REMOVED 2.5 LITERS OF CLOUDY YELLOW FLUID. END OF PROCEDURE AT 0910. CATHETER REMOVED AND DRESSING APPLIED. NO BLEEDING NOTED. ALBUMIN 25% 25 GRAMS GIVEN DURING PROCEDURE PER [facility] [place] ALBUMIN PROTOCOL. DISCHARGE INSTRUCTIONS GIVEN TO PATIENT. PATIENT VERBALIZED UNDERSTANDING. PT DISCHARGED AMBULATORY, STABLE, AAO X3 WITH NO C/O PAIN. SPECIMEN SENT TO LAB.
[2019-05-11 13:44] LABS: APPEARANCE BODY FLUID CLEAR (CLEAR); COLOR,BODY FLUID YELLOW (LT YELLOW); SPECIMENTYPE,BODY FLUID ASCITES; TOTAL VOLUME,BODY FLUID 2500 mL
[2019-05-11 13:45] LABS: BODY FLUID RBC 1383 /cu. mm.; BODY FLUID WBC 138 /cu. mm.
[2019-05-11 13:53] LABS: BF LYMPHOCYTE 15 %; BF MESOTHELIAL 68 %; BF MONOCYTE 7 %
== END | disposition home or self-care (01) ==
LOC: RAH 08:03
PROVIDERS: ATTEND Internal Medicine Gastroenterology
DX: R18.8 Other ascites (principal); K74.60 Unspecified cirrhosis of liver; I10 Essential (primary) hypertension; Z79.899 Other long term (current) drug therapy; Z83.3 Family history of diabetes mellitus
CPT/HCPCS: 49083; 87071; 87205; 88108; 89051; 96365; A4215; P9046

== ENCOUNTER → 2019-05-18 | Outpatient (CLI) | payer OTHER ==
[~2019-05-18] VITALS: Ht 160 cm; Wt 70.3 kg
[~2019-05-18] MED LIST changes: -ALBUMIN (HUMAN) 25% 200 ML IV ONE; +ALBUMIN (HUMAN) 25% 200 ML IV SCH
--- NOTE | 2019-05-18 10:40 | NUR ---
U/S GD PARACENTESIS PROCEDURE PERFORMED BY DR. DAY. PUNCTURE SITE RIGHT LOWER QUADRANT OF ABDOMEN AND PATIENT TOLERATED PROCEDURE WELL. TOTAL REMOVED 6.0 LITERS OF CLOUDY YELLOW FLUID. END OF PROCEDURE AT 1130. CATHETER REMOVED AND DRESSING APPLIED. NO BLEEDING NOTED. ALBUMIN 25% 50 GRAMS GIVEN DURING [place]EDURE [place] [facility] [place]. DISCHARGE INSTRUCTIONS GIVEN TO PATIENT. PATIENT VERBALIZED UNDERSTANDING. PT DISCHARGED AMBULATORY, STABLE, AAO X3 WITH NO C/O PAIN. SPECIMEN SENT TO LAB.
[2019-05-18 14:42] LABS: APPEARANCE BODY FLUID CLEAR (CLEAR); BODY FLUID WBC 35 /cu. mm.; COLOR,BODY FLUID LT YELLOW (LT YELLOW); SPECIMENTYPE,BODY FLUID ASCITES; TOTAL VOLUME,BODY FLUID 6000 mL
[2019-05-18 14:43] LABS: BODY FLUID RBC 500 /cu. mm.
[2019-05-18 14:46] LABS: BF LYMPHOCYTE 13 %; BF MESOTHELIAL 58 %; BF MONOCYTE 7 %
== END ==
LOC: RAH 09:53
PROVIDERS: ATTEND Internal Medicine Gastroenterology
DX: R18.8 Other ascites (principal); K74.60 Unspecified cirrhosis of liver; I10 Essential (primary) hypertension; F41.9 Anxiety disorder, unspecified; F32.9 Major depressive disorder, single episode, unspecified; M81.0 Age-related osteoporosis without current pathological fracture; Z72.89 Other problems related to lifestyle; Z79.899 Other long term (current) drug therapy; Z98.890 Other specified postprocedural states; Z83.3 Family history of diabetes mellitus
CPT/HCPCS: 49083; 87071 ×2; 87205 ×2; 89051; 96365; A4215; P9046

== ENCOUNTER → 2019-05-24 | Outpatient (CLI) | payer OTHER ==
[~2019-05-24] VITALS: Ht 160 cm; Wt 70.3 kg
[2019-05-24 08:24] LABS: BASOPHILS % (AUTO) 0.6 % (0.0-5.0); EOSINOPHILS % (AUTO) 1.8 % (0.0-8.0); HEMATOCRIT 29.2 % (36-48); LYMPHOCYTES % (AUTO) 14.3 % (21.0-51.0); MEAN CORPUSCULAR HEMOGLOBIN 29.5 pg (27.0-33.0); MEAN CORPUSCULAR HGB CONC 33.6 g/dL (32.0-36.0); MEAN CORPUSCULAR VOLUME 87.6 fL (79-99); MONOCYTES % (AUTO) 14.8 % (3.0-13.0); NEUTROPHILS % (AUTO) 68.5 % (40.0-77.0); NUCLEATED RED BLOOD CELLS 0.2 % (0.0-0.19); PLATELET COUNT (AUTO) 60 K/uL (130-400); RED BLOOD CELL COUNT(AUTO) 3.33 MIL/uL (4.00-5.50); RED CELL DISTRIBUTION WIDTH 17.2 % (11.0-15.5); WHITE BLOOD COUNT (AUTO) 3.2 K/uL (4.8-10.8)
[2019-05-24 08:42] LABS: BILIRUBIN,TOTAL 0.8 mg/dL (0.2-1.0); CREATININE 1.2 mg/dL (0.5-1.5); POTASSIUM 4.5 mmol/L (3.5-5.1); TOTAL PROTEIN, SERUM 7.5 g/dL (6.0-8.3)
--- NOTE | 2019-05-24 09:10 | NUR ---
U/S GD PARACENTESIS PROCEDURE PERFORMED BY DR MUKHERJEE. PUNCTURE SITE LEFT LOWER QUADRANT OF ABDOMEN AND PATIENT TOLERATED PROCEDURE WELL. TOTAL REMOVED 5.0 LITERS OF CLOUDY YELLOW ASCITES FLUID. END OF PROCEDURE AT 0950. CATHETER REMOVED AND DRESSING APPLIED. NO BLEEDING NOTED. ALBUMIN 25% 50 GRAMS GIVEN DURING PROCEDURE PER [facility] [place] PR[place]OL. DISCHARGE INSTRUCTIONS GIVEN TO PATIENT. PATIENT VERBALIZED UNDERSTANDING. PT DISCHARGED AMBULATORY, STABLE, AAO X3 WITH NO C/O PAIN. SPECIMEN SENT TO LAB.
[2019-05-24 09:32] LABS: INR 1.31 (0.85-1.15); PROTHROMBIN TIME 13.6 SEC (9.6-11.6)
[2019-05-24 13:46] LABS: APPEARANCE BODY FLUID SLIGHTLY CLOUDY (CLEAR); COLOR,BODY FLUID YELLOW (LT YELLOW); SPECIMENTYPE,BODY FLUID ASCITES; TOTAL VOLUME,BODY FLUID 5000 mL
[2019-05-24 13:47] LABS: BODY FLUID RBC 375 /cu. mm.; BODY FLUID WBC 67 /cu. mm.
[2019-05-24 14:39] LABS: BF LYMPHOCYTE 41 %; BF MONOCYTE 50 %
== END | disposition home or self-care (01) ==
LOC: RAH 08:06
PROVIDERS: ATTEND Internal Medicine Gastroenterology
DX: R18.8 Other ascites (principal); K74.60 Unspecified cirrhosis of liver; I10 Essential (primary) hypertension; F41.9 Anxiety disorder, unspecified; F32.9 Major depressive disorder, single episode, unspecified; M81.0 Age-related osteoporosis without current pathological fracture; Z79.899 Other long term (current) drug therapy; Z72.89 Other problems related to lifestyle; Z83.3 Family history of diabetes mellitus
CPT/HCPCS: 36415; 49083; 80053; 85025; 85610; 87071; 87205; 88108; 89051; A4215; P9046

== ENCOUNTER → 2019-06-01 | Outpatient (CLI) | payer OTHER ==
--- NOTE | 2019-06-01 11:40 | NUR ---
U/S GD PARACENTESIS PROCEDURE PERFORMED BY DR MUKHERJEE. PUNCTURE SITE RIGHT LOWER QUADRANT OF ABDOMEN AND PATIENT TOLERATED PROCEDURE WELL. TOTAL REMOVED 57.4 LITERS OF CLEAR YELLOW ASCITES FLUID. END OF PROCEDURE AT 1230. CATHETER REMOVED AND DRESSING APPLIED. NO BLEEDING NOTED. ALBUMIN 25% 50 GRAMS GIVEN DURING PROCEDURE PER [place] ALBUMIN PROTOCOL. DISCHARGE INSTRUCTIONS GIVEN TO PATIENT. PATIENT VERBALIZED UNDERSTANDING. PT DISCHARGED AMBULATORY, STABLE, AAO X3 WITH NO C/O PAIN. SPECIMEN SENT TO LAB. Addendum: 06/01/19 at 1304 by EDI BRIONES RN RN U/S GD PARACENTESIS PROCEDURE PERFORMED BY DR MUKHERJEE. PUNCTURE SITE RIGHT LOWER QUADRANT OF ABDOMEN AND PATIENT TOLERATED PROCEDURE WELL. TOTAL REMOVED 7.4 LITERS OF CLEAR YELLOW ASCITES FLUID. END OF PROCEDURE AT 1230. CATHETER REMOVED AND DRESSING APPLIED. NO BLEEDING NOTED. ALBUMIN 25% 50 GRAMS GIVEN DURING PROCEDURE PER [place] ALBUMIN PROTOCOL. DISCHARGE INSTRUCTIONS GIVEN TO PATIENT. PATIENT VERBALIZED UNDERSTANDING. PT DISCHARGED AMBULATORY, STABLE, AAO X3 WITH NO C/O PAIN. SPECIMEN SENT TO LAB.
[2019-06-01 16:32] LABS: APPEARANCE BODY FLUID SLIGHTLY CLOUDY (CLEAR); SPECIMENTYPE,BODY FLUID ASCITES
[2019-06-01 16:33] LABS: BODY FLUID WBC 51 /cu. mm.; COLOR,BODY FLUID YELLOW (LT YELLOW); TOTAL VOLUME,BODY FLUID 7400 mL
[2019-06-01 16:34] LABS: BODY FLUID RBC 268 /cu. mm.
[2019-06-01 16:38] LABS: BF LYMPHOCYTE 54 %; BF MESOTHELIAL 28 %; BF MONOCYTE 7 %; BF OTHER CELLS 2
== END ==
LOC: RAH 09:56
PROVIDERS: ATTEND Internal Medicine Gastroenterology
DX: R18.8 Other ascites (principal); K74.69 Other cirrhosis of liver; F41.9 Anxiety disorder, unspecified; F32.9 Major depressive disorder, single episode, unspecified; M81.0 Age-related osteoporosis without current pathological fracture; Z72.89 Other problems related to lifestyle; Z79.899 Other long term (current) drug therapy; Z83.3 Family history of diabetes mellitus
CPT/HCPCS: 49083; 87071; 87205; 89051; 96365; A4215; P9046

== ENCOUNTER → 2019-06-08 | Outpatient (CLI) | payer OTHER ==
[~2019-06-08] MED LIST changes: +ALBUMIN (HUMAN) 25% 200 ML IV ONE; -ALBUMIN (HUMAN) 25% 200 ML IV SCH
--- NOTE | 2019-06-08 10:35 | NUR ---
U/S GD PARACENTESIS PROCEDURE PERFORMED BY DR. GARAY. PUNCTURE SITE RIGHT LOWER QUADRANT OF ABDOMEN AND PATIENT TOLERATED PROCEDURE WELL. TOTAL REMOVED 5.1 LITERS OF CLOUDY YELLOW FLUID. END OF PROCEDURE AT 1120. CATHETER REMOVED AND DRESSING APPLIED. NO BLEEDING NOTED. ALBUMIN 25% 50 GRAMS GIVEN DURING PROCEDURE PER [place] ALBUMIN PROTOCOL. DISCHARGE INSTRUCTIONS GIVEN TO PATIENT. PATIENT VERBALIZED UNDERSTANDING. PT DISCHARGED AMBULATORY, STABLE, AAO X3 WITH NO C/O PAIN. SPECIMEN SENT TO LAB.
[2019-06-08 16:27] LABS: APPEARANCE BODY FLUID CLEAR (CLEAR); COLOR,BODY FLUID YELLOW (LT YELLOW); SPECIMENTYPE,BODY FLUID ASCITES; TOTAL VOLUME,BODY FLUID 5100 mL
[2019-06-08 16:28] LABS: BODY FLUID WBC 47 /cu. mm.
[2019-06-08 16:29] LABS: BODY FLUID RBC 114 /cu. mm.
[2019-06-08 16:37] LABS: BF EOSINOPHIL 1 %; BF LYMPHOCYTE 26 %; BF MESOTHELIAL 17 %; BF OTHER CELLS 3
== END ==
LOC: RAH 09:51
PROVIDERS: ATTEND Internal Medicine Gastroenterology
DX: R18.8 Other ascites (principal); K74.69 Other cirrhosis of liver; I10 Essential (primary) hypertension; F41.9 Anxiety disorder, unspecified; F32.9 Major depressive disorder, single episode, unspecified; M81.0 Age-related osteoporosis without current pathological fracture; Z79.899 Other long term (current) drug therapy; Z72.89 Other problems related to lifestyle; Z98.890 Other specified postprocedural states; Z83.3 Family history of diabetes mellitus
CPT/HCPCS: 49083; 87071; 87205; 88108; 88305; 89051; 96365; A4215; P9046

== ENCOUNTER → 2019-06-15 | Outpatient (CLI) | payer OTHER ==
[~2019-06-15] MED LIST changes: -ALBUMIN (HUMAN) 25% 200 ML IV ONE; +ALBUMIN (HUMAN) 25% 200 ML IV SCH
--- NOTE | 2019-06-15 10:35 | NUR ---
U/S GD PARACENTESIS PROCEDURE PERFORMED BY DR. GARAY. PUNCTURE SITE RIGHT LOWER QUADRANT OF ABDOMEN AND PATIENT TOLERATED PROCEDURE WELL. TOTAL REMOVED 5.2 LITERS OF CLOUDY YELLOW FLUID. END OF PROCEDURE AT 1115. CATHETER REMOVED AND DRESSING APPLIED. NO BLEEDING NOTED. ALBUMIN 25% 50 GRAMS REFUSED. DISCHARGE INSTRUCTIONS GIVEN TO PATIENT. PATIENT VERBALIZED UNDERSTANDING. PT DISCHARGED AMBULATORY, STABLE, AAO X3 WITH NO C/O PAIN. SPECIMEN SENT TO LAB.
[2019-06-15 13:24] LABS: APPEARANCE BODY FLUID CLEAR (CLEAR); COLOR,BODY FLUID YELLOW (LT YELLOW); SPECIMENTYPE,BODY FLUID ASCITES; TOTAL VOLUME,BODY FLUID 5200 mL
[2019-06-15 13:29] LABS: BODY FLUID RBC 127 /cu. mm.; BODY FLUID WBC 87 /cu. mm.
[2019-06-15 13:44] LABS: BF EOSINOPHIL 1 %; BF LYMPHOCYTE 32 %; BF MESOTHELIAL 54 %; BF MONOCYTE 8 %
== END ==
LOC: RAH 10:03
PROVIDERS: ATTEND Internal Medicine Gastroenterology
DX: R18.8 Other ascites (principal)
CPT/HCPCS: 49083; 87071; 87205; 88108; 88305; 89051; A4215; P9046

== ENCOUNTER → 2019-06-29 | Outpatient (CLI) | payer OTHER ==
[~2019-06-29] MED LIST changes: +ALBUMIN (HUMAN) 25% 200 ML IV PRN; -ALBUMIN (HUMAN) 25% 200 ML IV SCH
[2019-06-29 09:59] LABS: BASOPHILS % (AUTO) 0.9 % (0.0-5.0); EOSINOPHILS % (AUTO) 2.6 % (0.0-8.0); HEMATOCRIT 30.2 % (36-48); LYMPHOCYTES % (AUTO) 13.5 % (21.0-51.0); MEAN CORPUSCULAR HEMOGLOBIN 28.6 pg (27.0-33.0); MEAN CORPUSCULAR HGB CONC 32.5 g/dL (32.0-36.0); MONOCYTES % (AUTO) 17.5 % (3.0-13.0); NEUTROPHILS % (AUTO) 65.2 % (40.0-77.0); PLATELET COUNT (AUTO) 59 K/uL (130-400); RED BLOOD CELL COUNT(AUTO) 3.43 MIL/uL (4.00-5.50); WHITE BLOOD COUNT (AUTO) 3.4 K/uL (4.8-10.8)
[2019-06-29 10:10] LABS: INR 1.29 (0.85-1.15); PROTHROMBIN TIME 13.4 SEC (9.6-11.6)
[2019-06-29 10:15] LABS: ALBUMIN 2.6 g/dL (3.5-5.0); BILIRUBIN,TOTAL 0.9 mg/dL (0.2-1.0); CREATININE 1.2 mg/dL (0.5-1.5); POTASSIUM 5.2 mmol/L (3.5-5.1); TOTAL PROTEIN, SERUM 7.1 g/dL (6.0-8.3)
[2019-06-29 10:27] LABS: PLATELET MORPHOLOGY COMMENT DECREASED
--- NOTE | 2019-06-29 10:30 | NUR ---
U/S GD PARACENTESIS PROCEDURE PERFORMED BY DR. DAY. PUNCTURE SITE RIGHT LOWER QUADRANT OF ABDOMEN AND PATIENT TOLERATED PROCEDURE WELL. TOTAL REMOVED 4.5 LITERS OF CLOUDY STRAW COLORED ASCITES FLUID. END OF PROCEDURE AT 1100. CATHETER REMOVED AND DRESSING APPLIED. NO BLEEDING NOTED. ALBUMIN 25% 50 GRAMS GIVEN DURING PROCEDURE PER [facility] [place] ALBUMIN PROTOCOL. DISCHARGE INSTRUCTIONS GIVEN TO PATIENT. PATIENT VERBALIZED UNDERSTANDING. PIV DC'D, BANDAID APPLIED. PT DISCHARGED AMBULATORY, STABLE, AAO X3 WITH NO C/O PAIN. SPECIMEN SENT TO LAB.
[2019-06-29 16:04] LABS: SPECIMENTYPE,BODY FLUID ASCITES
[2019-06-29 16:05] LABS: APPEARANCE BODY FLUID SLIGHTLY CLOUDY (CLEAR); COLOR,BODY FLUID LT YELLOW (LT YELLOW); TOTAL VOLUME,BODY FLUID 4600 mL
[2019-06-29 16:06] LABS: BODY FLUID RBC 975 /cu. mm.; BODY FLUID WBC 52 /cu. mm.
[2019-06-29 18:11] LABS: BF LYMPHOCYTE 38 %; BF MESOTHELIAL 18 %
== END ==
LOC: RAH 09:36
PROVIDERS: ATTEND Internal Medicine Gastroenterology
DX: R18.8 Other ascites (principal); K74.60 Unspecified cirrhosis of liver; I10 Essential (primary) hypertension; F41.9 Anxiety disorder, unspecified; F32.9 Major depressive disorder, single episode, unspecified; M81.0 Age-related osteoporosis without current pathological fracture; Z72.89 Other problems related to lifestyle; Z79.899 Other long term (current) drug therapy; Z83.3 Family history of diabetes mellitus
CPT/HCPCS: 36415; 49083; 80053; 85025; 85610; 87071; 87205; 89051; 96365; A4215

== ENCOUNTER → 2019-07-06 | Outpatient (CLI) | payer OTHER ==
[~2019-07-06] MED LIST changes: -ALBUMIN (HUMAN) 25% 200 ML IV PRN; +ALBUMIN (HUMAN) 25% 200 ML IV SCH
--- NOTE | 2019-07-06 10:35 | NUR ---
U/S GD PARACENTESIS PROCEDURE PERFORMED BY DR MUKHERJEE. PUNCTURE SITE RIGHT LOWER QUADRANT OF ABDOMEN AND PATIENT TOLERATED PROCEDURE WELL. TOTAL REMOVED 5.8 LITERS OF CLOUDY YELLOW ASCITES FLUID. END OF PROCEDURE AT 1105. CATHETER REMOVED AND DRESSING APPLIED. NO BLEEDING NOTED. ALBUMIN 25% 50 GRAMS GIVEN DURING PROCEDURE [place] [facility] [place]. DISCHARGE INSTRUCTIONS GIVEN TO PATIENT. PATIENT VERBALIZED UNDERSTANDING. PT DISCHARGED AMBULATORY, STABLE, AAO X3 WITH NO C/O PAIN. SPECIMEN SENT TO LAB.
[2019-07-06 14:14] LABS: APPEARANCE BODY FLUID CLEAR (CLEAR); COLOR,BODY FLUID YELLOW (LT YELLOW); SPECIMENTYPE,BODY FLUID ASCITES
[2019-07-06 14:15] LABS: BODY FLUID RBC 448 /cu. mm.; BODY FLUID WBC 65 /cu. mm.
[2019-07-06 14:31] LABS: BF LYMPHOCYTE 19 %; BF MESOTHELIAL 62 %; BF MONOCYTE 15 %
[2019-07-06 14:42] LABS: TOTAL VOLUME,BODY FLUID 5800 mL
== END ==
LOC: RAH 09:43
PROVIDERS: ATTEND Internal Medicine Gastroenterology
DX: R18.8 Other ascites (principal); I10 Essential (primary) hypertension; F41.9 Anxiety disorder, unspecified; F32.9 Major depressive disorder, single episode, unspecified; M81.0 Age-related osteoporosis without current pathological fracture; Z72.89 Other problems related to lifestyle; Z79.899 Other long term (current) drug therapy
CPT/HCPCS: 49083; 87071; 87205; 88108; 88305; 89051; 96365; A4215; P9046

== ENCOUNTER → 2019-07-13 | Outpatient (CLI) | payer OTHER ==
[~2019-07-13] MED LIST changes: +ALBUMIN (HUMAN) 25% 200 ML IV PRN; -ALBUMIN (HUMAN) 25% 200 ML IV SCH
--- NOTE | 2019-07-13 11:35 | NUR ---
U/S GD PARACENTESIS PROCEDURE PERFORMED BY DR. KULKARNI PUNCTURE SITE RIGHT LOWER QUADRANT OF ABDOMEN AND PATIENT TOLERATED PROCEDURE WELL. TOTAL REMOVED 7.9 LITERS OF CLOUDY YELLOW FLUID. END OF PROCEDURE AT 1115. CATHETER REMOVED AND DRESSING APPLIED. NO BLEEDING NOTED. ALBUMIN 25% 50 GRAMS GIVEN DURING PROCEDURE PER [facility] [place]. DISCHARGE INSTRUCTIONS GIVEN TO PATIENT. PATIENT VERBALIZED UNDERSTANDING. PT DISCHARGED AMBULATORY, STABLE, AAO X3 WITH NO C/O PAIN. SPECIMEN SENT TO LAB. PUNCTURE SITE SHOWS NO ACTIVE BLEEDING OR HEMATOMA.PATIENT STATES FEELING WELL.
[2019-07-13 14:26] LABS: APPEARANCE BODY FLUID CLEAR (CLEAR); COLOR,BODY FLUID YELLOW (LT YELLOW); SPECIMENTYPE,BODY FLUID ASCITES; TOTAL VOLUME,BODY FLUID 7900 mL
[2019-07-13 14:27] LABS: BODY FLUID RBC 150 /cu. mm.; BODY FLUID WBC 57 /cu. mm.
[2019-07-13 14:29] LABS: BF LYMPHOCYTE 11 %; BF MESOTHELIAL 73 %; BF MONOCYTE 15 %
== END | disposition home or self-care (01) ==
LOC: RAH 09:06
PROVIDERS: ATTEND Internal Medicine Gastroenterology
DX: R18.8 Other ascites (principal); Z79.899 Other long term (current) drug therapy; Z83.3 Family history of diabetes mellitus
CPT/HCPCS: 49083; 87071; 87205; 89051; 96365; A4215; P9046

== ENCOUNTER → 2019-07-20 | Outpatient (CLI) | payer OTHER ==
[~2019-07-20] MED LIST changes: -ALBUMIN (HUMAN) 25% 200 ML IV PRN; +ALBUMIN (HUMAN) 25% 200 ML IV SCH
--- NOTE | 2019-07-20 10:25 | NUR ---
U/S GD PARACENTESIS PROCEDURE PERFORMED BY DR. KULKARNI. PUNCTURE SITE RIGHT UPPER QUADRANT OF ABDOMEN AND PATIENT TOLERATED PROCEDURE WELL. TOTAL REMOVED 2.1 LITERS OF CLOUDY BLOOD TINGED FLUID. END OF PROCEDURE AT 1050. CATHETER REMOVED AND DRESSING APPLIED. NO BLEEDING NOTED. PT DID NOT MEET [facility] [place]. DISCHARGE INSTRUCTIONS GIVEN TO PATIENT. PATIENT VERBALIZED UNDERSTANDING. PT DISCHARGED AMBULATORY, STABLE, AAO X3 WITH NO C/O PAIN. SPECIMEN SENT TO LAB.
[2019-07-20 16:45] LABS: APPEARANCE BODY FLUID SLIGHTLY CLOUDY (CLEAR); COLOR,BODY FLUID YELLOW (LT YELLOW); SPECIMENTYPE,BODY FLUID ASCITES; TOTAL VOLUME,BODY FLUID 2100 mL
[2019-07-20 16:46] LABS: BODY FLUID RBC 4125 /cu. mm.; BODY FLUID WBC 140 /cu. mm.
[2019-07-20 16:56] LABS: BF LYMPHOCYTE 39 %; BF MESOTHELIAL 2 %; BF OTHER CELLS 1
== END | disposition home or self-care (01) ==
LOC: RAH 09:49
PROVIDERS: ATTEND Internal Medicine Gastroenterology
DX: R18.8 Other ascites (principal); Z79.899 Other long term (current) drug therapy; Z83.3 Family history of diabetes mellitus
CPT/HCPCS: 49083; 87071; 87205; 89051; A4215; 88108; P9046

== ENCOUNTER → 2019-07-27 | Outpatient (CLI) | payer OTHER ==
[~2019-07-27] VITALS: Ht 160 cm; Wt 70.3 kg
--- NOTE | 2019-07-27 11:52 | NUR ---
U/S GD PARACENTESIS PROCEDURE PERFORMED BY DR. KULKARNI. PUNCTURE SITE RIGHT UPPER QUADRANT OF ABDOMEN AND PATIENT TOLERATED PROCEDURE WELL. TOTAL REMOVED 3.8 LITERS OF CLOUDY YELLOW TINGED FLUID. END OF PROCEDURE AT 1115. CATHETER REMOVED AND DRESSING APPLIED. NO BLEEDING NOTED. [place] [facility] [place] DISCHARGE INSTRUCTIONS GIVEN TO PATIENT. PATIENT VERBALIZED UNDERSTANDING. PT DISCHARGED AMBULATORY, STABLE, AAO X3 WITH NO C/O PAIN. SPECIMEN SENT TO LAB.
[2019-07-27 14:02] LABS: APPEARANCE BODY FLUID CLEAR (CLEAR); COLOR,BODY FLUID YELLOW (LT YELLOW); SPECIMENTYPE,BODY FLUID ASCITES
[2019-07-27 14:03] LABS: BODY FLUID RBC 410 /cu. mm.; BODY FLUID WBC 83 /cu. mm.; TOTAL VOLUME,BODY FLUID 3.9 mL
[2019-07-27 14:20] LABS: BF BASOPHIL 1 %; BF LYMPHOCYTE 29 %; BF MESOTHELIAL 53 %; BF MONOCYTE 17 %
== END ==
LOC: RAH 09:52
PROVIDERS: ATTEND Internal Medicine Gastroenterology
DX: R18.8 Other ascites (principal)
CPT/HCPCS: 49083; 87071; 87205; 89051; A4215; 88108; P9046

== ENCOUNTER → 2019-08-08 | Outpatient (CLI) | payer OTHER ==
[~2019-08-08] MED LIST changes: +ALBUMIN (HUMAN) 25% 200 ML IV PRN; -ALBUMIN (HUMAN) 25% 200 ML IV SCH
[2019-08-08 10:08] LABS: BASOPHILS % (AUTO) 0.2 % (0.0-5.0); EOSINOPHILS % (AUTO) 0.3 % (0.0-8.0); HEMATOCRIT 26.1 % (36-48); MEAN CORPUSCULAR HEMOGLOBIN 29.3 pg (27.0-33.0); MEAN CORPUSCULAR HGB CONC 34.5 g/dL (32.0-36.0); MONOCYTES % (AUTO) 13.7 % (3.0-13.0); NEUTROPHILS % (AUTO) 76.2 % (40.0-77.0); PLATELET COUNT (AUTO) 70 K/uL (130-400); RED BLOOD CELL COUNT(AUTO) 3.07 MIL/uL (4.00-5.50); RED CELL DISTRIBUTION WIDTH 15.8 % (11.0-15.5); WHITE BLOOD COUNT (AUTO) 6.3 K/uL (4.8-10.8)
[2019-08-08 10:20] LABS: INR 1.38 (0.85-1.15); PROTHROMBIN TIME 14.3 SEC (9.6-11.6)
[2019-08-08 10:22] LABS: ALBUMIN 2.8 g/dL (3.5-5.0); BILIRUBIN,TOTAL 1.8 mg/dL (0.2-1.0); CREATININE 1.2 mg/dL (0.5-1.5); POTASSIUM 5.5 mmol/L (3.5-5.1); TOTAL PROTEIN, SERUM 6.9 g/dL (6.0-8.3)
[2019-08-08 10:28] LABS: PLATELET MORPHOLOGY COMMENT DECREASED
--- NOTE | 2019-08-08 10:45 | NUR ---
ABNORMAL LABS SODIUM 110 AND REPORTED TO DONA CHEUNG AND [facility]. ORDERS GIVEN TO DRAW BASIC METABOLIC PANEL POST PARACENTESIS AND REPORT RESULTS TO OFFICE PRIOR DISCHARGE.
--- NOTE | 2019-08-08 12:00 | NUR ---
U/S GD PARACENTESIS PROCEDURE PERFORMED BY DR. KULKARNI. PUNCTURE SITE RIGHT UPPER QUADRANT OF ABDOMEN AND PATIENT TOLERATED PROCEDURE WELL. TOTAL REMOVED 9.5 LITERS OF CLOUDY YELLOW FLUID. END OF PROCEDURE AT 1100. CATHETER REMOVED AND DRESSING APPLIED. NO BLEEDING NOTED. ALBUMIN 25% 50 GRAMS IV GIVEN PER [facility] [place] ALBUMIN PROTOCOL. SPECIMEN SENT TO LAB. SODIUM LEVEL 113 POST PROCEDURE AND REPORTED TO DONA CHEUNG AT [facility]. OK TO DISCHARGE HOME POST PROCEDURE. DISCHARGE INSTRUCTIONS GIVEN TO PATIENT. PATIENT VERBALIZED UNDERSTANDING. PT DISCHARGED AMBULATORY, STABLE, AAO X3 WITH NO C/O PAIN.
[2019-08-08 12:16] LABS: CREATININE 1.1 mg/dL (0.5-1.5); POTASSIUM 5.1 mmol/L (3.5-5.1)
[2019-08-08 17:30] LABS: COLOR,BODY FLUID YELLOW (LT YELLOW); SPECIMENTYPE,BODY FLUID ASCITES
[2019-08-08 17:31] LABS: APPEARANCE BODY FLUID CLEAR (CLEAR); BODY FLUID WBC 59 /cu. mm.; TOTAL VOLUME,BODY FLUID 9500 mL
[2019-08-08 17:32] LABS: BODY FLUID RBC 153 /cu. mm.
[2019-08-08 17:35] LABS: BF LYMPHOCYTE 35 %; BF MESOTHELIAL 35 %; BF MONOCYTE 9 %
== END | disposition home or self-care (01) ==
LOC: RAH 09:19
PROVIDERS: ATTEND Internal Medicine Gastroenterology
DX: R18.8 Other ascites (principal); Z79.899 Other long term (current) drug therapy; Z83.3 Family history of diabetes mellitus
CPT/HCPCS: 36415; 49083; 80053; 82105; 85025; 85610; 87071; 87205; 88108; 89051; A4215; 80048

== ENCOUNTER → 2019-08-16 | Outpatient (CLI) | payer OTHER ==
[~2019-08-16] MED LIST changes: -ALBUMIN (HUMAN) 25% 200 ML IV PRN; +ALBUMIN (HUMAN) 25% 200 ML IV SCH
--- NOTE | 2019-08-16 11:15 | NUR ---
U/S GD PARACENTESIS PROCEDURE PERFORMED BY DR. KULKARNI. PUNCTURE SITE RIGHT UPPER QUADRANT OF ABDOMEN AND PATIENT TOLERATED PROCEDURE WELL. TOTAL REMOVED 6.8 LITERS OF CLOUDY YELLOW FLUID. END OF PROCEDURE AT 1145. CATHETER REMOVED AND DRESSING APPLIED. NO BLEEDING NOTED. ALBUMIN 25% 50 GRAMS GIVEN DURING PROCEDURE PER [facility] [place]. RAC PIV DC'D, BANDAID APPLIED, DRESSING DRY AND INTACT. DISCHARGE INSTRUCTIONS GIVEN TO PATIENT. PATIENT VERBALIZED UNDERSTANDING. PT DISCHARGED AMBULATORY, STABLE, AAO X3 WITH NO C/O PAIN. SPECIMEN SENT TO LAB @3898.
[2019-08-16 13:52] LABS: SPECIMENTYPE,BODY FLUID ASCITES
[2019-08-16 13:53] LABS: APPEARANCE BODY FLUID CLEAR (CLEAR); BODY FLUID RBC 102 /cu. mm.; BODY FLUID WBC 40 /cu. mm.; COLOR,BODY FLUID YELLOW (LT YELLOW); TOTAL VOLUME,BODY FLUID 6800 mL
[2019-08-16 14:29] LABS: BF LYMPHOCYTE 37 %; BF MESOTHELIAL 56 %
== END | disposition home or self-care (01) ==
LOC: RAH 10:04
PROVIDERS: ATTEND Internal Medicine Gastroenterology
DX: R18.8 Other ascites (principal); F41.9 Anxiety disorder, unspecified; I10 Essential (primary) hypertension; F32.9 Major depressive disorder, single episode, unspecified; M81.0 Age-related osteoporosis without current pathological fracture; Z79.899 Other long term (current) drug therapy
CPT/HCPCS: 49083; 87071; 87205; 88108; 89051; 96365; A4215; P9046

== ENCOUNTER → 2019-08-23 | Outpatient (CLI) | payer OTHER ==
[~2019-08-23] MED LIST changes: +ALBUMIN (HUMAN) 25% 200 ML IV ONE; -ALBUMIN (HUMAN) 25% 200 ML IV SCH
--- NOTE | 2019-08-23 12:00 | NUR ---
U/S GD PARACENTESIS PROCEDURE PERFORMED BY DR. KULKARNI. PUNCTURE SITE RIGHT LOWER QUADRANT OF ABDOMEN AND PATIENT TOLERATED PROCEDURE WELL. TOTAL REMOVED 7.3 LITERS OF CLOUDY YELLOW FLUID. END OF PROCEDURE AT 1240. CATHETER REMOVED AND DRESSING APPLIED. NO BLEEDING NOTED. ALBUMIN 25% 50 GRAMS GIVEN DURING PROCEDURE PER [facility] [place]. RAC PIV DC'D, BANDAID APPLIED, DRESSING DRY AND INTACT. DISCHARGE INSTUCTIONS GIVEN TO PATIENT. PATIENT VERBALIZED UNDERSTANDING. PT DISCHARGED AMBULATORY, STABLE, AAO X3 WITH NO C/O PAIN. SPECIMEN SENT TO LAB.
[2019-08-23 16:08] LABS: APPEARANCE BODY FLUID CLEAR (CLEAR); COLOR,BODY FLUID YELLOW (LT YELLOW); SPECIMENTYPE,BODY FLUID ASCITES; TOTAL VOLUME,BODY FLUID 7300 mL
[2019-08-23 16:09] LABS: BODY FLUID RBC 251 /cu. mm.; BODY FLUID WBC 26 /cu. mm.
[2019-08-23 16:18] LABS: BF LYMPHOCYTE 34 %; BF MESOTHELIAL 51 %; BF MONOCYTE 2 %
== END ==
LOC: RAH 09:56
PROVIDERS: ATTEND Internal Medicine Gastroenterology
DX: R18.8 Other ascites (principal)
CPT/HCPCS: 49083; 87071; 87205; 89051; A4215; P9046; 96365

== ENCOUNTER → 2019-08-30 | Outpatient (CLI) | payer OTHER ==
[~2019-08-30] MED LIST changes: -ALBUMIN (HUMAN) 25% 200 ML IV ONE; +ALBUMIN (HUMAN) 25% 200 ML IV SCH
--- NOTE | 2019-08-30 10:50 | NUR ---
U/S GD PARACENTESIS PROCEDURE PERFORMED BY DR. GARAY. PUNCTURE SITE RIGHT LOWER QUADRANT OF ABDOMEN AND PATIENT TOLERATED PROCEDURE WELL. TOTAL REMOVED 5.8 LITERS OF CLOUDY YELLOW FLUID. END OF PROCEDURE AT 1130. CATHETER REMOVED AND DRESSING APPLIED. NO BLEEDING NOTED. ALBUMIN 25% 50 GRAMS GIVEN DURING PROCEDURE PER [facility] [place] ALBUMIN PROTOCOL. RIGHT AC PIV DC'D, BANDAID APPLIED, DRESSING DRY AND INTACT. DISCHARGE INSTUCTIONS GIVEN TO PATIENT. PATIENT VERBALIZED UNDERSTANDING. PT DISCHARGED VIA W/C, STABLE, AAO X3 WITH NO C/O PAIN. SPECIMEN SENT TO LAB.
[2019-08-30 14:07] LABS: APPEARANCE BODY FLUID CLEAR (CLEAR); COLOR,BODY FLUID YELLOW (LT YELLOW); SPECIMENTYPE,BODY FLUID ASCITES; TOTAL VOLUME,BODY FLUID 5800 mL
[2019-08-30 14:08] LABS: BODY FLUID RBC 224 /cu. mm.; BODY FLUID WBC 92 /cu. mm.
[2019-08-30 14:11] LABS: BF LYMPHOCYTE 27 %; BF MESOTHELIAL 67 %; BF MONOCYTE 5 %
== END | disposition home or self-care (01) ==
LOC: RAH 10:09
PROVIDERS: ATTEND Internal Medicine Gastroenterology
DX: R18.8 Other ascites (principal); Z79.899 Other long term (current) drug therapy; Z83.3 Family history of diabetes mellitus
CPT/HCPCS: 49083; 87071; 87205; 88108; 89051; 96365; A4215; P9046

== ENCOUNTER → 2019-09-13 | Outpatient (CLI) | payer OTHER ==
[2019-09-13 08:43] LABS: HEMATOCRIT 26.9 % (36-48); MEAN CORPUSCULAR HEMOGLOBIN 28.9 pg (27.0-33.0); MEAN CORPUSCULAR HGB CONC 32.7 g/dL (32.0-36.0); MEAN CORPUSCULAR VOLUME 88.2 fL (79-99); PLATELET COUNT (AUTO) 73 K/uL (130-400); RED BLOOD CELL COUNT(AUTO) 3.05 MIL/uL (4.00-5.50); WHITE BLOOD COUNT (AUTO) 4.7 K/uL (4.8-10.8)
[2019-09-13 08:56] LABS: INR 1.33 (0.85-1.15); PROTHROMBIN TIME 14.2 SEC (9.6-11.6)
[2019-09-13 08:58] LABS: ALBUMIN 3.1 g/dL (3.5-5.0); CREATININE 1.2 mg/dL (0.5-1.5); POTASSIUM 5.5 mmol/L (3.5-5.1); TOTAL PROTEIN, SERUM 7.2 g/dL (6.0-8.3)
--- NOTE | 2019-09-13 09:20 | NUR ---
U/S GD PARACENTESIS PROCEDURE PERFORMED BY DR. KULKARNI. PUNCTURE SITE RIGHT UPPER QUADRANT OF ABDOMEN AND PATIENT TOLERATED PROCEDURE WELL. TOTAL REMOVED 5.2 LITERS OF CLOUDY YELLOW FLUID. END OF PROCEDURE AT 1010. CATHETER REMOVED AND DRESSING APPLIED. NO BLEEDING NOTED. ALBUMIN 25% 50 GRAMS GIVEN DURING PROCEDURE PER [facility] [place] ALBUMIN PROTOCOL. RIGHT FOREARM PIV DC'D, BANDAID APPLIED, DRESSING DRY AND INTACT. DISCHARGE INSTRUCTIONS GIVEN TO PATIENT. PATIENT VERBALIZED UNDERSTANDING. PT DISCHARGED VIA W/C, STABLE, AAO X3 WITH NO C/O PAIN. SPECIMEN SENT TO LAB.
[2019-09-13 09:24] LABS: BASOPHILS % (MANUAL) 3 % (0-2); EOSINOPHILS % (MANUAL) 1 % (1-6); LYMPHOCYTES % (MANUAL) 14 % (22-44); MAN.DIFF COMMENT-IMPRESSION MANUAL DIFFERENTIAL; MONOCYTES % (MANUAL) 15 % (2-9); PLATELET MORPHOLOGY COMMENT DECREASED; SEGMENTED NEUTROPHILS % 67 % (40-70)
[2019-09-13 16:10] LABS: SPECIMENTYPE,BODY FLUID ASCITES
[2019-09-13 16:11] LABS: APPEARANCE BODY FLUID SLIGHTLY CLOUDY (CLEAR); BODY FLUID WBC 64 /cu. mm.; COLOR,BODY FLUID LT YELLOW (LT YELLOW); TOTAL VOLUME,BODY FLUID 5200 mL
[2019-09-13 16:12] LABS: BODY FLUID RBC 202 /cu. mm.
[2019-09-13 16:52] LABS: BF LYMPHOCYTE 23 %; BF MESOTHELIAL 2 %; BF MONOCYTE 8 %
== END | disposition home or self-care (01) ==
LOC: RAH 08:25
PROVIDERS: ATTEND Internal Medicine Gastroenterology
DX: R18.8 Other ascites (principal); Z79.899 Other long term (current) drug therapy; Z83.3 Family history of diabetes mellitus
CPT/HCPCS: 36415; 49083; 80053; 85025; 85610; 87071; 87205; 89051; A4215; P9046; 96365

== ENCOUNTER → 2019-09-20 | Outpatient (CLI) | payer OTHER ==
--- NOTE | 2019-09-20 10:55 | NUR ---
U/S GD PARACENTESIS PROCEDURE PERFORMED BY DR. DAY. PUNCTURE SITE RIGHT LOWER QUADRANT AND PATIENT TOLERATED PROCEDURE WELL. TOTAL REMOVED 5.2 LITERS OF CLOUDY YELLOW FLUID. ALBUMIN 25% 50 GRAMS IV GIVEN DURING PROCEDURE. SPECIMEN SENT TO LAB. END OF PROCEDURE AT 1125. CATHETER REMOVED AND DRESSING APPLIED. NO BLEEDING NOTED. DISCHARGE INSTRUCTIONS GIVEN TO PATIENT AND VERBALIZED UNDERSTANDING. DISCHARGED AMBULATORY, STABLE, AAO X3 WITH NO C/O PAIN.
[2019-09-20 14:21] LABS: APPEARANCE BODY FLUID CLEAR (CLEAR); COLOR,BODY FLUID YELLOW (LT YELLOW); SPECIMENTYPE,BODY FLUID ASCITES
[2019-09-20 14:22] LABS: BODY FLUID RBC 479 /cu. mm.; BODY FLUID WBC 102 /cu. mm.
[2019-09-20 14:24] LABS: BF LYMPHOCYTE 14 %; BF MESOTHELIAL 60 %; BF MONOCYTE 24 %
[2019-09-20 14:29] LABS: TOTAL VOLUME,BODY FLUID 5200 mL
== END ==
LOC: RAH 10:10
PROVIDERS: ATTEND Internal Medicine Gastroenterology
DX: R18.8 Other ascites (principal)
CPT/HCPCS: 49083; 87071; 87205; 89051; A4215; P9046; 96365

== ENCOUNTER → 2019-09-26 | Outpatient (CLI) | payer OTHER ==
--- NOTE | 2019-09-26 12:20 | NUR ---
U/S GD PARACENTESIS PROCEDURE PERFORMED BY DR. MUKHERJEE. PUNCTURE SITE LEFT LOWER QUADRANT AND PATIENT TOLERATED PROCEDURE WELL. TOTAL REMOVED 3.7 LITERS OF CLOUDY YELLOW FLUID. SPECIMEN SENT TO LAB. END OF PROCEDURE AT 1215. CATHETER REMOVED AND DRESSING APPLIED. NO BLEEDING NOTED. DISCHARGE INSTRUCTIONS GIVEN TO PATIENT AND VERBALIZED UNDERSTANDING. DISCHARGED AMBULATORY, STABLE, AAO X3 WITH NO C/O PAIN. DC WITH SPOUSE AT 1220
[2019-09-26 15:32] LABS: APPEARANCE BODY FLUID CLEAR (CLEAR); BODY FLUID WBC 85 /cu. mm.; COLOR,BODY FLUID YELLOW (LT YELLOW); SPECIMENTYPE,BODY FLUID ASCITES; TOTAL VOLUME,BODY FLUID 3700 mL
[2019-09-26 15:33] LABS: BODY FLUID RBC 276 /cu. mm.
[2019-09-26 15:43] LABS: BF LYMPHOCYTE 34 %; BF MESOTHELIAL 13 %; BF MONOCYTE 23 %
== END | disposition home or self-care (01) ==
LOC: RAH 10:23
PROVIDERS: ATTEND Internal Medicine Gastroenterology
DX: R18.8 Other ascites (principal); Z83.3 Family history of diabetes mellitus; Z79.899 Other long term (current) drug therapy
CPT/HCPCS: 49083; 87071; 87205; 89051; A4215; P9046

== ENCOUNTER → 2019-10-04 | Outpatient (CLI) | payer OTHER ==
--- NOTE | 2019-10-04 11:00 | NUR ---
U/S GD PARACENTESIS PROCEDURE PERFORMED BY DR. DAY. PUNCTURE SITE LEFT LOWER QUADRANT OF ABDOMEN AND PATIENT TOLERATED PROCEDURE WELL. TOTAL REMOVED 4.5 LITERS OF CLOUDY YELLOW FLUID. END OF PROCEDURE AT 1130. CATHETER REMOVED AND DRESSING APPLIED. NO BLEEDING NOTED. ALBUMIN 25% 25 GRAMS GIVEN IV DURING PROCEDURE PER [facility] [place] ALBUMIN PROTOCOL. RIGHT ANTECUBITAL PIV DC'D, BANDAID APPLIED, DRESSING DRY AND INTACT. DISCHARGE INSTRUCTIONS GIVEN TO PATIENT. PATIENT VERBALIZED UNDERSTANDING. PT DISCHARGED AMBULATORY, STABLE, AAO X3 WITH NO C/O PAIN. SPECIMEN SENT TO LAB.
[2019-10-04 14:05] LABS: APPEARANCE BODY FLUID CLEAR (CLEAR); COLOR,BODY FLUID YELLOW (LT YELLOW); SPECIMENTYPE,BODY FLUID ASCITES; TOTAL VOLUME,BODY FLUID 4500 mL
[2019-10-04 14:06] LABS: BODY FLUID RBC 242 /cu. mm.; BODY FLUID WBC 97 /cu. mm.
[2019-10-04 14:26] LABS: BF LYMPHOCYTE 32 %; BF MESOTHELIAL 20 %; BF MONOCYTE 36 %
== END | disposition home or self-care (01) ==
LOC: RAH 10:02
PROVIDERS: ATTEND Internal Medicine Gastroenterology
DX: R18.8 Other ascites (principal); K74.60 Unspecified cirrhosis of liver; I85.00 Esophageal varices without bleeding; I10 Essential (primary) hypertension; F41.9 Anxiety disorder, unspecified; F32.9 Major depressive disorder, single episode, unspecified; M81.0 Age-related osteoporosis without current pathological fracture; Z79.899 Other long term (current) drug therapy
CPT/HCPCS: 49083; 87071; 87205; 89051; 96365; P9046

== ENCOUNTER → 2019-10-11 | Outpatient (CLI) | payer OTHER ==
--- NOTE | 2019-10-11 10:50 | NUR ---
U/S GD PARACENTESIS PROCEDURE PERFORMED BY DR. BOOTH. PUNCTURE SITE RIGHT LOWER QUADRANT OF ABDOMEN AND PATIENT TOLERATED PROCEDURE WELL. TOTAL REMOVED 6.5 LITERS OF CLOUDY YELLOW FLUID. END OF PROCEDURE AT 1120. CATHETER REMOVED AND DRESSING APPLIED. NO BLEEDING NOTED. ALBUMIN 25% 50 GRAMS GIVEN DURING PROCEDURE PER [facility] [place] ALBUMIN PROTOCOL. RIGHT FOREARM PIV DC'D, BANDAID APPLIED, DRESSING DRY AND INTACT. DISCHARGE INSTRUCTIONS GIVEN TO PATIENT. PATIENT VERBALIZED UNDERSTANDING. PT DISCHARGED AMBULATORY, STABLE, AAO X3 WITH NO C/O PAIN. SPECIMEN SENT TO LAB.
[2019-10-11 15:39] LABS: APPEARANCE BODY FLUID SLIGHTLY CLOUDY (CLEAR); COLOR,BODY FLUID YELLOW (LT YELLOW); SPECIMENTYPE,BODY FLUID ASCITES; TOTAL VOLUME,BODY FLUID 6300 mL
[2019-10-11 15:40] LABS: BODY FLUID RBC 867 /cu. mm.; BODY FLUID WBC 97 /cu. mm.
[2019-10-11 15:57] LABS: BF LYMPHOCYTE 19 %; BF MESOTHELIAL 24 %; BF MONOCYTE 6 %
== END ==
LOC: RAH 10:18
PROVIDERS: ATTEND Internal Medicine Gastroenterology
DX: R18.8 Other ascites (principal); K74.60 Unspecified cirrhosis of liver; I85.00 Esophageal varices without bleeding; I10 Essential (primary) hypertension; F41.9 Anxiety disorder, unspecified; F32.9 Major depressive disorder, single episode, unspecified; M81.0 Age-related osteoporosis without current pathological fracture
CPT/HCPCS: 49083; 87071; 87205; 89051; A4215; P9046; 96365

== ENCOUNTER → 2019-10-18 | Outpatient (CLI) | payer OTHER ==
[~2019-10-18] MED LIST changes: +ALBUMIN (HUMAN) 25% 200 ML IV PRN; -ALBUMIN (HUMAN) 25% 200 ML IV SCH
[2019-10-18 10:16] LABS: HEMATOCRIT 28.5 % (36-48); MEAN CORPUSCULAR HEMOGLOBIN 29.4 pg (27.0-33.0); MEAN CORPUSCULAR HGB CONC 32.3 g/dL (32.0-36.0); MEAN CORPUSCULAR VOLUME 91.1 fL (79-99); PLATELET COUNT (AUTO) 57 K/uL (130-400); RED BLOOD CELL COUNT(AUTO) 3.13 MIL/uL (4.00-5.50); RED CELL DISTRIBUTION WIDTH 16.1 % (11.0-15.5); WHITE BLOOD COUNT (AUTO) 3.6 K/uL (4.8-10.8)
[2019-10-18 10:30] LABS: INR 1.3 (0.85-1.15); PROTHROMBIN TIME 13.9 SEC (9.6-11.6)
[2019-10-18 10:37] LABS: ALBUMIN 2.9 g/dL (3.5-5.0); BILIRUBIN,TOTAL 1.2 mg/dL (0.2-1.0); CREATININE 1.5 mg/dL (0.5-1.5); POTASSIUM 4.9 mmol/L (3.5-5.1); TOTAL PROTEIN, SERUM 6.8 g/dL (6.0-8.3)
--- NOTE | 2019-10-18 10:50 | NUR ---
U/S GD PARACENTESIS PROCEDURE PERFORMED BY DR. KANG. PUNCTURE SITE LEFT LOWER QUADRANT OF ABDOMEN AND PATIENT TOLERATED PROCEDURE WELL. TOTAL REMOVED 6.6 LITERS OF CLOUDY YELLOW FLUID. END OF PROCEDURE AT 1115. CATHETER REMOVED AND DRESSING APPLIED. NO BLEEDING NOTED. ALBUMIN 25% 50 GRAMS GIVEN DURING PROCEDURE [place] [facility] [place]. RIGHT ANTECUBITAL PIV DC'D, BANDAID APPLIED, DRESSING DRY AND INTACT. DISCHARGE INSTRUCTIONS GIVEN TO PATIENT. PATIENT VERBALIZED UNDERSTANDING. PT DISCHARGED AMBULATORY, STABLE, AAO X3 WITH NO C/O PAIN @ 1205. SPECIMEN SENT TO LAB.
[2019-10-18 11:34] LABS: BASOPHILS % (MANUAL) 1 % (0-2); EOSINOPHILS % (MANUAL) 1 % (1-6); LYMPHOCYTES % (MANUAL) 12 % (22-44); MAN.DIFF COMMENT-IMPRESSION MANUAL DIFFERENTIAL; MONOCYTES % (MANUAL) 16 % (2-9); PLATELET MORPHOLOGY COMMENT DECREASED; SEGMENTED NEUTROPHILS % 70 % (40-70)
[2019-10-18 14:13] LABS: APPEARANCE BODY FLUID CLOUDY (CLEAR); BODY FLUID WBC 94 /cu. mm.; COLOR,BODY FLUID RED (LT YELLOW); SPECIMENTYPE,BODY FLUID ASCITES; TOTAL VOLUME,BODY FLUID 6600 mL
[2019-10-18 14:14] LABS: BODY FLUID RBC 9275 /cu. mm.
[2019-10-18 14:18] LABS: BF BASOPHIL 1 %; BF LYMPHOCYTE 33 %; BF MESOTHELIAL 43 %; BF MONOCYTE 21 %
== END ==
LOC: RAH 10:04
PROVIDERS: ATTEND Internal Medicine Gastroenterology
DX: R18.8 Other ascites (principal); K74.60 Unspecified cirrhosis of liver; I85.00 Esophageal varices without bleeding; I10 Essential (primary) hypertension; F41.9 Anxiety disorder, unspecified; F32.9 Major depressive disorder, single episode, unspecified; M81.0 Age-related osteoporosis without current pathological fracture
CPT/HCPCS: 36415; 49083; 80053; 85025; 85610; 87071; 87205; 89051; A4215; 96365

== ENCOUNTER → 2019-10-25 | Outpatient (CLI) | payer OTHER ==
--- NOTE | 2019-10-25 10:35 | NUR ---
U/S GD PARACENTESIS PROCEDURE PERFORMED BY DR. BOOTH. PUNCTURE SITE LEFT LOWER QUADRANT OF ABDOMEN AND PATIENT TOLERATED PROCEDURE WELL. TOTAL REMOVED 5.7 LITERS OF CLOUDY YELLOW FLUID. END OF PROCEDURE AT 1055. CATHETER REMOVED AND DRESSING APPLIED. NO BLEEDING NOTED. ALBUMIN 25% 50 GRAMS GIVEN DURING PROCEDURE [place] [facility] [place]. RIGHT ANTECUBITAL PIV DC'D, BANDAID APPLIED, DRESSING DRY AND INTACT. DISCHARGE INSTRUCTIONS GIVEN TO PATIENT. PATIENT VERBALIZED UNDERSTANDING. PT DISCHARGED VIA W/C, STABLE, AAO X3 WITH NO C/O PAIN @1215. SPECIMEN SENT TO LAB.
[2019-10-25 14:22] LABS: APPEARANCE BODY FLUID CLEAR (CLEAR); BODY FLUID RBC 645 /cu. mm.; BODY FLUID WBC 48 /cu. mm.; COLOR,BODY FLUID YELLOW (LT YELLOW); SPECIMENTYPE,BODY FLUID ASCITES; TOTAL VOLUME,BODY FLUID 5700 mL
[2019-10-25 14:27] LABS: BF LYMPHOCYTE 29 %; BF MESOTHELIAL 68 %
== END ==
LOC: RAH 09:37
PROVIDERS: ATTEND Internal Medicine Gastroenterology
DX: R18.8 Other ascites (principal)
CPT/HCPCS: 49083; 87071; 87205; 89051; A4215; 96365

== ENCOUNTER → 2019-11-01 | Outpatient (CLI) | payer OTHER ==
[~2019-11-01] MED LIST changes: +ALBUMIN (HUMAN) 25% 200 ML IV ONE; -ALBUMIN (HUMAN) 25% 200 ML IV PRN
--- NOTE | 2019-11-01 09:20 | NUR ---
U/S GD PARACENTESIS PROCEDURE PERFORMED BY DR. BOOTH. PUNCTURE SITE RIGHT LOWER QUADRANT OF ABDOMEN AND PATIENT TOLERATED PROCEDURE WELL. TOTAL REMOVED 6.0 LITERS OF CLOUDY YELLOW FLUID. END OF PROCEDURE AT 1000. CATHETER REMOVED AND DRESSING APPLIED. NO BLEEDING NOTED. ALBUMIN 25% 50 GRAMS GIVEN DURING PROCEDURE [place] [facility] [place]. LEFT FOREARM PIV DC'D, BANDAID APPLIED, DRESSING DRY AND INTACT. DISCHARGE INSTRUCTIONS GIVEN TO PATIENT. PATIENT VERBALIZED UNDERSTANDING. PT DISCHARGED AMBULATORY @1020, STABLE, AAO X3 WITH NO C/O PAIN. SPECIMEN SENT TO LAB.
[2019-11-01 13:36] LABS: APPEARANCE BODY FLUID CLEAR (CLEAR); COLOR,BODY FLUID YELLOW (LT YELLOW); SPECIMENTYPE,BODY FLUID ASCITES; TOTAL VOLUME,BODY FLUID 6000 mL
[2019-11-01 13:37] LABS: BODY FLUID RBC 269 /cu. mm.; BODY FLUID WBC 45 /cu. mm.
[2019-11-01 13:49] LABS: BF LYMPHOCYTE 48 %; BF MESOTHELIAL 30 %; BF MONOCYTE 21 %
== END ==
LOC: RAH 08:35
PROVIDERS: ATTEND Internal Medicine Gastroenterology
DX: R18.8 Other ascites (principal); I85.10 Secondary esophageal varices without bleeding; K74.60 Unspecified cirrhosis of liver; K29.50 Unspecified chronic gastritis without bleeding; K80.20 Calculus of gallbladder without cholecystitis without obstruction; D64.9 Anemia, unspecified; I10 Essential (primary) hypertension; F41.9 Anxiety disorder, unspecified; F32.9 Major depressive disorder, single episode, unspecified; M81.0 Age-related osteoporosis without current pathological fracture
CPT/HCPCS: 49083; 87071; 87205; 89051; A4215; P9046; 96365

== ENCOUNTER → 2019-11-08 | Outpatient (CLI) | payer OTHER ==
[~2019-11-08] MED LIST changes: -ALBUMIN (HUMAN) 25% 200 ML IV ONE; +ALBUMIN (HUMAN) 25% 200 ML IV SCH
--- NOTE | 2019-11-08 09:20 | NUR ---
U/S GD PARACENTESIS PROCEDURE PERFORMED BY DR. GODINEZ. PUNCTURE SITE RIGHT LOWER QUADRANT OF ABDOMEN AND PATIENT TOLERATED PROCEDURE WELL. TOTAL REMOVED 4.6 LITERS OF CLOUDY YELLOW FLUID. END OF PROCEDURE AT 0940. CATHETER REMOVED AND DRESSING APPLIED. NO BLEEDING NOTED. ALBUMIN 25% 50 GRAMS GIVEN DURING PROCEDURE PER [facility] [place] [facility] [place]. RIGHT FOREARM PIV DC'D, BANDAID APPLIED, DRESSING DRY AND INTACT. DISCHARGE INSTRUCTIONS GIVEN TO PATIENT. PATIENT VERBALIZED UNDERSTANDING. PT DISCHARGED AMBULATORY, STABLE, AAO X3 WITH NO C/O PAIN. SPECIMEN SENT TO LAB.
[2019-11-08 14:11] LABS: BF LYMPHOCYTE 20 %; BF MESOTHELIAL 49 %; BF MONOCYTE 30 %
[2019-11-08 14:19] LABS: SPECIMENTYPE,BODY FLUID ASCITES
[2019-11-08 14:20] LABS: APPEARANCE BODY FLUID SLIGHTLY CLOUDY (CLEAR); BODY FLUID WBC 75 /cu. mm.; COLOR,BODY FLUID YELLOW (LT YELLOW); TOTAL VOLUME,BODY FLUID 4600 mL
[2019-11-08 14:21] LABS: BODY FLUID RBC 2385 /cu. mm.
== END ==
LOC: RAH 08:15
PROVIDERS: ATTEND Internal Medicine Gastroenterology
DX: R18.8 Other ascites (principal)
CPT/HCPCS: 49083; 87071; 87205; 89051; A4215; P9046; 96365

== ENCOUNTER → 2019-11-15 | Outpatient (CLI) | payer OTHER ==
--- NOTE | 2019-11-15 09:30 | NUR ---
U/S GD PARACENTESIS PROCEDURE PERFORMED BY DR. KANG. PUNCTURE SITE RIGHT LOWER QUADRANT OF ABDOMEN AND PATIENT TOLERATED PROCEDURE WELL. TOTAL REMOVED 5.4 LITERS OF CLOUDY YELLOW FLUID. END OF PROCEDURE AT 1010. CATHETER REMOVED AND DRESSING APPLIED. NO BLEEDING NOTED. ALBUMIN 25% 50 GRAMS GIVEN DURING PROCEDURE PER [facility] [place] ALBUMIN PROTOCOL. RIGHT ANTECUBITAL PIV DC'D, BANDAID APPLIED, DRESSING DRY AND INTACT. DISCHARGE INSTRUCTIONS GIVEN TO PATIENT. PATIENT VERBALIZED UNDERSTANDING. PT DISCHARGED AMBULATORY, STABLE, AAO X3 WITH NO C/O PAIN. SPECIMEN SENT TO LAB.
[2019-11-15 17:12] LABS: APPEARANCE BODY FLUID SLIGHTLY CLOUDY (CLEAR); COLOR,BODY FLUID YELLOW (LT YELLOW); SPECIMENTYPE,BODY FLUID ASCITES
[2019-11-15 17:13] LABS: BODY FLUID RBC 522 /cu. mm.; BODY FLUID WBC 44 /cu. mm.; TOTAL VOLUME,BODY FLUID 5400 mL
[2019-11-15 17:28] LABS: BF LYMPHOCYTE 50 %; BF MONOCYTE 4 %
== END ==
LOC: RAH 08:13
PROVIDERS: ATTEND Internal Medicine Gastroenterology
DX: R18.8 Other ascites (principal)
CPT/HCPCS: 49083; 87071; 87205; 89051; A4215; P9046; 96365

== ENCOUNTER 2019-11-21 18:37 | Inpatient (IN) | payer OTHER ==
[~2019-11-21] VITALS: Ht 160 cm; Wt 64.4 kg
[~2019-11-21 18:37] MED LIST changes: -ALBUMIN (HUMAN) 25% 200 ML IV SCH; -PANT40TA25 PO; +PANT40TA54 PO
[2019-11-21 19:00] LABS: BASOPHILS % (AUTO) 0.5 % (0.0-5.0); EOSINOPHILS % (AUTO) 1.1 % (0.0-8.0); HEMATOCRIT 28.3 % (36-48); LYMPHOCYTES % (AUTO) 10.9 % (21.0-51.0); MEAN CORPUSCULAR HEMOGLOBIN 29.2 pg (27.0-33.0); MEAN CORPUSCULAR HGB CONC 33.6 g/dL (32.0-36.0); MEAN CORPUSCULAR VOLUME 87.1 fL (79-99); MONOCYTES % (AUTO) 12.2 % (3.0-13.0); NEUTROPHILS % (AUTO) 74.7 % (40.0-77.0); PLATELET COUNT (AUTO) 64 K/uL (130-400); RED BLOOD CELL COUNT(AUTO) 3.25 MIL/uL (4.00-5.50); RED CELL DISTRIBUTION WIDTH 16.3 % (11.0-15.5); WHITE BLOOD COUNT (AUTO) 6.4 K/uL (4.8-10.8)
[2019-11-21 19:14] LABS: ALBUMIN 3.3 g/dL (3.5-5.0); BILIRUBIN,TOTAL 1.6 mg/dL (0.2-1.0); CREATININE 1.5 mg/dL (0.5-1.5); POTASSIUM 4.7 mmol/L (3.5-5.1); TOTAL PROTEIN, SERUM 7.1 g/dL (6.0-8.3)
[2019-11-21 20:16] LABS: ABG BASE EXCESS -10.6 mmol/L (-2.0-3.0); ABG PCO2 24 mmHg (32-45)
[2019-11-21] MEDS: SODIUM CHLORIDE 0.9% 1000ML 1,000 ML IV SCH (20:34)
[2019-11-21 20:39] LABS: MAGNESIUM 1.7 mg/dL (1.80-2.40); PHOSPHORUS 3.3 mg/dL (2.5-4.9)
[2019-11-21] MEDS ORDERED: MORPHINE SULFATE 2 MG/ML 1ML SYG IV PRN (20:45)
[2019-11-21] MEDS ORDERED: LACTULOSE 20 GM/30 ML UDCUP PO PRN (20:45)
[2019-11-21] MEDS ORDERED: ONDANSETRON HCL 4 MG/2 ML VIAL IV PRN (20:45)
[2019-11-21 20:54] LABS: INR 1.29 (0.85-1.15); PARTIAL THROMBOPLASTIN TIME 35.5 SEC (26.3-35.5); PROTHROMBIN TIME 13.8 SEC (9.6-11.6)
[2019-11-21] MEDS ORDERED: FAMOTIDINE 20MG TAB 20 MG TAB PO SCH (21:00)
[2019-11-21] MEDS ORDERED: MAGNESIUM 2GM PREMIX 50ML 50 ML IV PRN (21:30)
[2019-11-21 21:55] LABS: APPEARANCE,URINE Clear (CLEAR); BILIRUBIN,URINE Negative (NEGATIVE); COLOR,URINE Yellow (YELLOW); GLUCOSE, URINE (UA) Negative (NEGATIVE); KETONES,URINE Negative (NEGATIVE); LEUKOCYTE ESTERASE ,URINE Negative (NEGATIVE); NITRATE,URINE Negative (NEGATIVE); OCCULT BLOOD,URINE Trace (NEGATIVE); PROTEIN,URINE Negative (NEGATIVE); UROBILINOGEN,URINE 0.2 mg/dL (0.2-1.0)
[2019-11-21 22:02] LABS: BACTERIA,URINE Rare /HPF (None Seen); RBC,URINE None Seen /HPF (0-1); SQUAMOUS EPITHELIAL CELL,UR 0-2 /HPF (0-2); WBC,URINE 0-1 /HPF (0-1)
[2019-11-21] MEDS ORDERED: MAGNESIUM 2GM PREMIX 50ML 50 ML IV ONE (22:53)
[2019-11-22] VITALS (7 sets, daily range): BP systolic 94–119; BP diastolic 51–78
[2019-11-22] MEDS: SODIUM CHLORIDE 0.9% 1000ML 1,000 ML IV SCH (03:00)
[2019-11-22 04:36] LABS: BASOPHILS % (AUTO) 0.5 % (0.0-5.0); EOSINOPHILS % (AUTO) 1.8 % (0.0-8.0); HEMATOCRIT 25.6 % (36-48); MEAN CORPUSCULAR HEMOGLOBIN 29.6 pg (27.0-33.0); MEAN CORPUSCULAR VOLUME 87.1 fL (79-99); MONOCYTES % (AUTO) 12.9 % (3.0-13.0); NEUTROPHILS % (AUTO) 70.6 % (40.0-77.0); PLATELET COUNT (AUTO) 47 K/uL (130-400); RED BLOOD CELL COUNT(AUTO) 2.94 MIL/uL (4.00-5.50); RED CELL DISTRIBUTION WIDTH 16.3 % (11.0-15.5); WHITE BLOOD COUNT (AUTO) 4.4 K/uL (4.8-10.8)
[2019-11-22 04:52] LABS: CREATININE 1.1 mg/dL (0.5-1.5); POTASSIUM 4.6 mmol/L (3.5-5.1)
[2019-11-22] MEDS ORDERED: ALBUMIN (HUMAN) 25% 200 ML IV ONE (08:30)
--- NOTE | 2019-11-22 09:30 | NUR ---
U/S GD PARACENTESIS PROCEDURE PERFORMED BY DR. Nasra KULKARNI. PUNCTURE SITE RIGHT LOWER QUADRANT OF ABDOMEN AND PATIENT TOLERATED PROCEDURE WELL. TOTAL REMOVED 5.8 LITERS OF CLOUDY YELLOW FLUID. END OF PROCEDURE AT 09. CATHETER REMOVED AND DRESSING APPLIED. NO BLEEDING NOTED. ALBUMIN 25% 50 GRAMS ORDERED [place] [facility] [place]. REPORT GIVEN TO Nga HENLEY RN AND PT TRANSPORTED TO [facility] VIA W/C AT 0930, AAO X3 WITH NO C/O PAIN. SPECIMEN SENT TO LAB.
[2019-11-22] MEDS: SODIUM BICARBONATE 650 MG TAB PO SCH ×2 (10:08→20:36)
[2019-11-22] MEDS: PANTOPRAZOLE SODIUM 40 MG TABLET.DR PO SCH (10:08)
[2019-11-22 11:45] LABS: APPEARANCE BODY FLUID CLEAR (CLEAR); BODY FLUID WBC 48 /cu. mm.; COLOR,BODY FLUID YELLOW (LT YELLOW); SPECIMENTYPE,BODY FLUID ASCITES; TOTAL VOLUME,BODY FLUID 5800 mL
[2019-11-22 11:46] LABS: BODY FLUID RBC 1400 /cu. mm.
[2019-11-22 11:48] LABS: BF LYMPHOCYTE 29 %; BF MESOTHELIAL 42 %; BF MONOCYTE 26 %
--- NOTE | 2019-11-22 14:33 | NUR ---
CM NOTE/IA MEET WITH PATIENT IN ROOM. PER PATIENT, LIVES WITH SPOUSE, IS INDEPENDENT WITH ADLS, NO HOME HEALTH OR PROVIDER SERVICES IN USE, HAS ROLLATOR WALKER WHICH SHE USES AT TIMES AND FEELS SAFE TO RETURN HOME ONCE DISCHARGED AND MEDICALLY CLEARED. Addendum: 11/23/19 at 1434 by JETT ARGUETA RN CM Amended: Links added.
[2019-11-23 04:11] VITALS: BP 107/64
[2019-11-23 06:08] LABS: MEAN CORPUSCULAR HEMOGLOBIN 29.5 pg (27.0-33.0); MEAN CORPUSCULAR HGB CONC 32.9 g/dL (32.0-36.0); MEAN CORPUSCULAR VOLUME 89.6 fL (79-99); PLATELET COUNT (AUTO) 45 K/uL (130-400); RED BLOOD CELL COUNT(AUTO) 2.68 MIL/uL (4.00-5.50); RED CELL DISTRIBUTION WIDTH 17.2 % (11.0-15.5); WHITE BLOOD COUNT (AUTO) 2.5 K/uL (4.8-10.8)
[2019-11-23 06:20] LABS: % IRON SATURATION 35.4 % (22-44)
[2019-11-23 06:24] LABS: CREATININE 1.3 mg/dL (0.5-1.5); POTASSIUM 4.4 mmol/L (3.5-5.1)
[2019-11-23] MEDS ORDERED: LEVOTHYROXINE 150 MCG TABLET ONE (06:28)
[2019-11-23 06:54] LABS: EOSINOPHILS % (MANUAL) 1 % (1-6); LYMPHOCYTES % (MANUAL) 19 % (22-44); MAN.DIFF COMMENT-IMPRESSION MANUAL DIFFERENTIAL; MONOCYTES % (MANUAL) 6 % (2-9); PLATELET MORPHOLOGY COMMENT MARKED DECREASE; SEGMENTED NEUTROPHILS % 74 % (40-70)
[2019-11-23 08:11] VITALS: BP 104/74
[2019-11-23] MEDS ORDERED: LEVOTHYROXINE 150 MCG TABLET PO SCH (09:00)
[2019-11-23] MEDS ORDERED: MIDODRINE HCL 5 MG TABLET PO SCH ×2 (09:30→14:00)
[2019-11-23] MEDS: SODIUM BICARBONATE 650 MG TAB PO SCH (10:22)
[2019-11-23] MEDS: PANTOPRAZOLE SODIUM 40 MG TABLET.DR PO SCH (10:22)
[2019-11-23 11:40] VITALS: BP 102/59
[2019-11-23] MEDS ORDERED: Midodrine Hcl PO ×2 (17:43)
[2019-11-23] MEDS ORDERED: SODI650T PO ×2 (17:43)
--- NOTE | 2019-11-23 18:50 | NUR ---
DISCHARGE INSTRUCTIONS/INFORMATION GIVEN TO PATIENT. TEACH BACK METHOD USED TO EDUCATE PATIENT ON DIET, S/S TO MONITOR, WHEN TO CALL MD, F/U APPOINTMENT,AND NEW MEDS PRESCRIBED. A HARD SCRIPT FOR MIDODRINE WAS GIVEN TO PT AND INFORMED HER THAT THE PRESCRIPTION FOR SODIUM BICARB WAS ELECTRONICALLY TRANSMITTED. PIV REMOVED. TELE PACK REMOVED AND RETURNED. ALL BELONGINGS WERE PACKED.
== END 2019-11-23 18:30 | disposition home or self-care (01) | DRG 433 ==
LOC: EDH 18:37 → EDHIP 20:34 → 4CH 22:50
PROVIDERS: ADMIT Internal Medicine; ATTEND Internal Medicine
PROC: 0W9G3ZZ Drainage of Peritoneal Cavity, Percutaneous Approach (ICD-10-PCS; principal; 2019-11-22)
DX: K70.31 Alcoholic cirrhosis of liver with ascites (principal); E87.1 Hypo-osmolality and hyponatremia; E44.1 Mild protein-calorie malnutrition; D68.4 Acquired coagulation factor deficiency; D69.6 Thrombocytopenia, unspecified; E78.5 Hyperlipidemia, unspecified; E83.42 Hypomagnesemia; I10 Essential (primary) hypertension; R53.81 Other malaise; Z68.25 Body mass index [BMI] 25.0-25.9, adult; Z87.891 Personal history of nicotine dependence; Z83.3 Family history of diabetes mellitus
CPT/HCPCS: 36415; 36600; 49083; 80048; 80053; 81001; 82803; 82948; 83540; 83550; 83735; 83935; 84100; 84300; 85025; 85610; 85730; 87071; 87205; 89051; 93005; 96365; G0378; J3475; J7030; P9046

== ENCOUNTER → 2019-11-24 | Outpatient (CLI) | payer OTHER ==
[~2019-11-24] MED LIST changes: +Midodrine Hcl PO; +PANT40TA25 PO; -PANT40TA54 PO; +SODI650T PO
== END | disposition home or self-care (01) ==
LOC: RAH 09:29
PROVIDERS: ATTEND Internal Medicine Gastroenterology
DX: K74.69 Other cirrhosis of liver (principal); K80.80 Other cholelithiasis without obstruction; R16.1 Splenomegaly, not elsewhere classified
CPT/HCPCS: 76700; 93975

== ENCOUNTER 2019-11-28 13:37 | Inpatient (IN) | payer OTHER ==
[~2019-11-28] VITALS: Ht 160 cm; Wt 75.1 kg
[2019-11-28] VITALS (16 sets, daily range): BP systolic 88–110; BP diastolic 43–67
[~2019-11-28 13:37] MED LIST changes: -PANT40TA25 PO; +PANT40TA54 PO
[2019-11-28 14:30] LABS: BASOPHILS % (AUTO) 0.2 % (0.0-5.0); EOSINOPHILS % (AUTO) 1.7 % (0.0-8.0); HEMATOCRIT 24.3 % (36-48); LYMPHOCYTES % (AUTO) 3.4 % (21.0-51.0); MEAN CORPUSCULAR HEMOGLOBIN 29.7 pg (27.0-33.0); MEAN CORPUSCULAR HGB CONC 32.9 g/dL (32.0-36.0); MEAN CORPUSCULAR VOLUME 90.3 fL (79-99); MONOCYTES % (AUTO) 6.6 % (3.0-13.0); NEUTROPHILS % (AUTO) 86.9 % (40.0-77.0); PLATELET COUNT (AUTO) 101 K/uL (130-400); RED BLOOD CELL COUNT(AUTO) 2.69 MIL/uL (4.00-5.50); WHITE BLOOD COUNT (AUTO) 13.7 K/uL (4.8-10.8)
[2019-11-28] MEDS ORDERED: ONDANSETRON HCL 4 MG/2 ML VIAL ONE (14:32)
[2019-11-28] MEDS ORDERED: MORPHINE SULFATE 4 MG/1ML SYG ONE (14:33)
[2019-11-28 14:35] LABS: APPEARANCE,URINE SL CLOUDY (CLEAR); BILIRUBIN,URINE NEGATIVE (NEGATIVE); COLOR,URINE YELLOW (YELLOW); GLUCOSE, URINE (UA) NEGATIVE (NEGATIVE); KETONES,URINE NEGATIVE (NEGATIVE); LEUKOCYTE ESTERASE ,URINE MODERATE (NEGATIVE); NITRATE,URINE NEGATIVE (NEGATIVE); OCCULT BLOOD,URINE TRACE-INTACT (NEGATIVE); PH,URINE 5.5 (5.0-8.0); PROTEIN,URINE NEGATIVE (NEGATIVE); UROBILINOGEN,URINE 0.2 mg/dL (0.2-1.0)
[2019-11-28 14:42] LABS: BACTERIA,URINE Moderate /HPF (None Seen); SQUAMOUS EPITHELIAL CELL,UR Few /HPF (0-2)
[2019-11-28 14:52] LABS: BILIRUBIN,DIRECT 0.6 mg/dL (0.0-0.3); BILIRUBIN,TOTAL 1.3 mg/dL (0.2-1.0); CREATININE 1.8 mg/dL (0.5-1.5); POTASSIUM 4.5 mmol/L (3.5-5.1); TOTAL PROTEIN, SERUM 6.4 g/dL (6.0-8.3)
[2019-11-28 14:53] LABS: INR 1.39 (0.85-1.15); PARTIAL THROMBOPLASTIN TIME 34.1 SEC (26.3-35.5); PROTHROMBIN TIME 14.8 SEC (9.6-11.6)
[2019-11-28] MEDS: CEFTRIAXONE SODIUM 1 GM IVP SCH (16:00)
[2019-11-28] MEDS: SODIUM CHLORIDE 0.9% 1000ML 1,000 ML IV SCH (16:00)
[2019-11-28] MEDS ORDERED: CEFTRIAXONE SODIUM 1 GM ONE (16:27)
[2019-11-28 16:48] LABS: % IRON SATURATION 20.6 % (22-44)
[2019-11-28 16:50] LABS: CREATININE,URINE RANDOM 122 mg/dL (30-135); SODIUM,URINE RANDOM < 15 mmol/l (40-220)
[2019-11-28 19:43] LABS: CREATININE 1.9 mg/dL (0.5-1.5); POTASSIUM 5.9 mmol/L (3.5-5.1)
[2019-11-28] MEDS: LACTULOSE 20 GM/30 ML UDCUP PO SCH (20:03)
[2019-11-28] MEDS ORDERED: FAMOTIDINE/PF 20 MG/2 ML VIAL IV SCH (21:00)
[2019-11-28] MEDS ORDERED: MIDODRINE HCL 5 MG TABLET PO SCH (21:00)
[2019-11-28] MEDS ORDERED: PHYTONADIONE 10 MG/1 ML AMP IM SCH (21:30)
[2019-11-28 21:39] LABS: MAGNESIUM 1.9 mg/dL (1.80-2.40)
[2019-11-28] MEDS ORDERED: FUROSEMIDE 10 MG/ML 4ML VIAL ONE (21:56)
[2019-11-28] MEDS: ALBUMIN (HUMAN) 25% 50 ML IV SCH (21:58)
[2019-11-28] MEDS ORDERED: FUROSEMIDE 10 MG/ML 4ML VIAL IV ONE (22:00)
[2019-11-28] MEDS ORDERED: MAGNESIUM 2GM PREMIX 50ML 50 ML IV PRN (22:00)
[2019-11-28] MEDS ORDERED: MAGNESIUM 2GM PREMIX 50ML 50 ML IV ONE (22:17)
[2019-11-28] MEDS: TRAMADOL HCL 50 MG TABLET PO PRN (22:29)
[2019-11-29] VITALS (35 sets, daily range): BP systolic 99–144; BP diastolic 53–88
[2019-11-29] MEDS ORDERED: ONDANSETRON HCL 4 MG/2 ML VIAL ONE (00:04)
[2019-11-29] MEDS ORDERED: ONDANSETRON HCL 4 MG/2 ML VIAL IVP PRN (00:15)
[2019-11-29] MEDS: LACTULOSE 20 GM/30 ML UDCUP PO SCH ×3 (02:45→18:54)
[2019-11-29] MEDS: CEFTRIAXONE SODIUM 1 GM IVP SCH ×2 (04:27→16:24)
[2019-11-29 05:22] LABS: CREATININE 2.3 mg/dL (0.5-1.5)
[2019-11-29] MEDS: ALBUMIN (HUMAN) 25% 50 ML IV SCH (05:28)
[2019-11-29 06:10] LABS: BASOPHILS % (AUTO) 0.1 % (0.0-5.0); EOSINOPHILS % (AUTO) 0.1 % (0.0-8.0); LYMPHOCYTES % (AUTO) 5.9 % (21.0-51.0); MEAN CORPUSCULAR HEMOGLOBIN 29.6 pg (27.0-33.0); MEAN CORPUSCULAR HGB CONC 33.1 g/dL (32.0-36.0); MEAN CORPUSCULAR VOLUME 89.2 fL (79-99); MONOCYTES % (AUTO) 10.9 % (3.0-13.0); PLATELET COUNT (AUTO) 74 K/uL (130-400); RED BLOOD CELL COUNT(AUTO) 1.86 MIL/uL (4.00-5.50); RED CELL DISTRIBUTION WIDTH 17.2 % (11.0-15.5); WHITE BLOOD COUNT (AUTO) 12.1 K/uL (4.8-10.8)
[2019-11-29 06:27] LABS: HEMATOCRIT 16.6 % (36-48)
[2019-11-29] MEDS ORDERED: SODIUM POLYSTYRENE SULFONATE 15 GM/60 ML ML PO SCH (07:15)
[2019-11-29] MEDS: LEVOTHYROXINE 150 MCG TABLET PO SCH ×2 (07:17→07:30)
[2019-11-29] MEDS: SODIUM CHLORIDE 0.9% 1000ML 1,000 ML IV SCH (07:17)
--- NOTE | 2019-11-29 07:25 | NUR ---
PATIENT WITH EMESIS -UNABLE TO KEEP DOWN SYNTHROID AT THIS TIME.
[2019-11-29] MEDS ORDERED: LEVOTHYROXINE 150 MCG TABLET PO SCH (07:30)
[2019-11-29] MEDS ORDERED: METOCLOPRAMIDE 10 MG/2 ML VIAL ONE (07:40)
[2019-11-29] MEDS ORDERED: SODIUM CHLORIDE 3% 500 ML IV SCH (07:45)
[2019-11-29] MEDS: METOCLOPRAMIDE 10 MG/2 ML VIAL IVP SCH ×3 (07:45→16:25)
[2019-11-29 07:56] LABS: INR 1.96 (0.85-1.15); PARTIAL THROMBOPLASTIN TIME 67.4 SEC (26.3-35.5); PROTHROMBIN TIME 20.6 SEC (9.6-11.6)
[2019-11-29] MEDS ORDERED: OCTREOTIDE ACETATE 100 MCG/ML AMP SQ SCH (09:00)
[2019-11-29] MEDS: MIDODRINE HCL 5 MG TABLET PO SCH ×4 (09:00→20:50)
[2019-11-29] MEDS ORDERED: RENAL DOSE IV SCH (09:00)
[2019-11-29] MEDS ORDERED: ZOSYN 3.375GM+NS 50ML 50 ML IV SCH (09:16)
[2019-11-29] MEDS: PANTOPRAZOLE SODIUM 40 MG TABLET.DR PO SCH (10:28)
--- NOTE | 2019-11-29 10:30 | NUR ---
DC PLAN PATIENT IN ICU GUARDED CONDITION. PREVIOUS ADMISSION FOR ASCITES. PATIENT LIVES WITH SPOUSE. INDEPENDENT ABLE TO PERFORM ADL'S. PATIENT HAS A ROLLATOR WALKER. PLAN IS TO DC HOME VS SNF. PATIENT HAD A FALL IN BATHROOM POSSIBLE HIP SURGERY. Addendum: 11/29/19 at 1032 by LORELEI STEVEN RN CM Amended: Links added.
[2019-11-29] MEDS ORDERED: ACETAMINOPHEN 325 MG TAB PO PRN (12:15)
[2019-11-29] MEDS ORDERED: FENTANYL CITRATE PF 50 MCG/1 ML 2ML VIAL IVP PRN (12:15)
[2019-11-29 12:30] LABS: CREATININE 2.4 mg/dL (0.5-1.5)
[2019-11-29 13:07] LABS: POTASSIUM 6.2 mmol/L (3.5-5.1)
[2019-11-29] MEDS: ALBUMIN (HUMAN) 25% 200 ML IV SCH (14:04)
[2019-11-29] MEDS ORDERED: FUROSEMIDE 10 MG/ML 2ML VIAL IV SCH (15:00)
--- NOTE | 2019-11-29 15:10 | NUR ---
DR. HAWKINS AT BEDSIDE FOR PARACENTESIS, CONSENT SIGNED AND IN CHART. 4 L OF FLUID REMOVED. DRESSING TO LEFT ABDOMEN INTACT. TOLERATED WELL.
[2019-11-29 15:44] LABS: INR 1.51 (0.85-1.15); PARTIAL THROMBOPLASTIN TIME 38.4 SEC (26.3-35.5); PROTHROMBIN TIME 16.1 SEC (9.6-11.6)
[2019-11-29 15:50] LABS: HEMATOCRIT 17.5 % (36-48)
--- NOTE | 2019-11-29 16:00 | NUR ---
INTRAABDOMINAL PRESSURE 11.
[2019-11-29] MEDS: TRAMADOL HCL 50 MG TABLET PO PRN (16:20)
[2019-11-29 16:34] LABS: ALBUMIN,BODY FLUID 0.9 g/dL; TRIGLYCERIDES,BODY FLUID 16 mg/dL
[2019-11-29] MEDS ORDERED: SODIUM CHLORIDE 0.9% 500ML 500 ML IV ONE (16:43)
[2019-11-29] MEDS ORDERED: TRANEXAMIC ACID 1000MG/10ML IV SCH (16:45)
[2019-11-29 16:52] LABS: APPEARANCE BODY FLUID SLIGHTLY CLOUDY (CLEAR); COLOR,BODY FLUID YELLOW (LT YELLOW); SPECIMENTYPE,BODY FLUID ASCITES; TOTAL VOLUME,BODY FLUID 24 mL
[2019-11-29 16:53] LABS: BODY FLUID RBC 478 /cu. mm.; BODY FLUID WBC 29 /cu. mm.
[2019-11-29] MEDS ORDERED: OCTREOTIDE ACETATE 1,250 MCG in SODIUM CHLORIDE 0.9% 250 ML IV SCH (17:00)
[2019-11-29] MEDS ORDERED: SODIUM CHLORIDE IJ ONE ×4 (17:00→23:30)
[2019-11-29] MEDS ORDERED: DESMOPRESSIN ACETATE IJ ONE ×4 (17:00→23:30)
[2019-11-29] MEDS ORDERED: TRANEXAMIC ACID 1,000 MG in SODIUM CHLORIDE 0.9% 100 ML IV ONE (17:00)
[2019-11-29 17:05] LABS: BF LYMPHOCYTE 16 %; BF MESOTHELIAL 70 %; BF MONOCYTE 1 %
[2019-11-29] MEDS ORDERED: COMPOUND IV REFRIGERATED 1 EACH IVSOLN MISC PRN (17:15)
--- NOTE | 2019-11-29 18:00 | NUR ---
PT RECEIVING BLOOD TRANSFUSIONS ORDERED. TOLERATING WELL. NO ADVERSE REACTION NOTED.
--- NOTE | 2019-11-29 21:08 | NUR ---
Calvin Ledesma Consult Spoke to Calvin Ledesma. No intervention needed at this time due to pending hip surgery.
[2019-11-29] MEDS ORDERED: SODIUM CHLORIDE 0.9% 250 ML IV ONE (22:11)
[2019-11-29] MEDS ORDERED: DESMOPRESSIN ACETATE 4 MCG/ML 0 MCG in SODIUM CHLORIDE 0.9% 50 ML IV SCH (23:30)
[2019-11-30] VITALS (16 sets, daily range): BP systolic 108–133; BP diastolic 59–80
[2019-11-30] MEDS: METOCLOPRAMIDE 10 MG/2 ML VIAL IVP SCH ×3 (00:30→11:41)
[2019-11-30 01:22] LABS: HEMATOCRIT 22.4 % (36-48)
[2019-11-30 01:29] LABS: CREATININE 1.9 mg/dL (0.5-1.5); POTASSIUM 3.9 mmol/L (3.5-5.1)
[2019-11-30] MEDS: LACTULOSE 20 GM/30 ML UDCUP PO SCH ×2 (02:45→08:32)
[2019-11-30] MEDS: CEFTRIAXONE SODIUM 1 GM IVP SCH (03:34)
[2019-11-30] MEDS: LEVOTHYROXINE 150 MCG TABLET PO SCH (05:43)
[2019-11-30 06:24] LABS: HEMATOCRIT 22.2 % (36-48); LYMPHOCYTES % (AUTO) 6.1 % (21.0-51.0); MEAN CORPUSCULAR HEMOGLOBIN 29.4 pg (27.0-33.0); MEAN CORPUSCULAR HGB CONC 34.7 g/dL (32.0-36.0); MEAN CORPUSCULAR VOLUME 84.7 fL (79-99); MONOCYTES % (AUTO) 15.6 % (3.0-13.0); NEUTROPHILS % (AUTO) 77.7 % (40.0-77.0); PLATELET COUNT (AUTO) 37 K/uL (130-400); RED BLOOD CELL COUNT(AUTO) 2.62 MIL/uL (4.00-5.50); WHITE BLOOD COUNT (AUTO) 4.8 K/uL (4.8-10.8)
[2019-11-30 06:41] LABS: INR 1.44 (0.85-1.15); PARTIAL THROMBOPLASTIN TIME 33.2 SEC (26.3-35.5); PROTHROMBIN TIME 15.3 SEC (9.6-11.6)
[2019-11-30 06:49] LABS: ALBUMIN 3.7 g/dL (3.5-5.0); BILIRUBIN,TOTAL 3.2 mg/dL (0.2-1.0); CREATININE 1.7 mg/dL (0.5-1.5); MAGNESIUM 2.4 mg/dL (1.80-2.40); PHOSPHORUS 4.2 mg/dL (2.5-4.9); POTASSIUM 3.9 mmol/L (3.5-5.1); THYROID STIMULATING HORMONE 2.38 uIU/mL (0.36-3.74); TOTAL PROTEIN, SERUM 6.2 g/dL (6.0-8.3)
[2019-11-30] MEDS: ALBUMIN (HUMAN) 25% 200 ML IV SCH (08:32)
[2019-11-30] MEDS: MIDODRINE HCL 5 MG TABLET PO SCH ×3 (08:32→21:14)
[2019-11-30] MEDS: PANTOPRAZOLE SODIUM 40 MG TABLET.DR PO SCH (08:32)
[2019-11-30] MEDS ORDERED: SODIUM CHLORIDE 0.9% 250 ML IV ONE (11:39)
[2019-11-30 11:43] LABS: HEMATOCRIT 21.4 % (36-48)
[2019-11-30] MEDS: TRAMADOL HCL 50 MG TABLET PO PRN (16:51)
[2019-11-30 18:47] LABS: HEMATOCRIT 21.9 % (36-48)
[2019-11-30] MEDS: RIFAXIMIN 550 MG TABLET PO SCH (21:14)
[2019-12-01] VITALS (20 sets, daily range): BP systolic 103–136; BP diastolic 51–81
--- NOTE | 2019-12-01 01:40 | NUR ---
REPORT GIVEN TO GLENN MARIA. CANDACE WILL CONTINUE CARE FOR PT. CONSENT FOR ORIF (SCHEDULED 11/30 AT NOON) SIGNED BY PT AND CONSENT FOR BLOOD TRANSFUSION AND BLOOD PRODUCTS SIGNED BY PT. 2 BAGS OF PLATELETS TO BE GIVEN IN AM 11/30. PT HAS BEEN BATHED BY KAVYA MONTALVO. PT DENIES PAIN.
[2019-12-01 04:10] LABS: HEMATOCRIT 22.4 % (36-48); MEAN CORPUSCULAR HEMOGLOBIN 28.8 pg (27.0-33.0); MEAN CORPUSCULAR VOLUME 87.2 fL (79-99); PLATELET COUNT (AUTO) 36 K/uL (130-400); RED BLOOD CELL COUNT(AUTO) 2.57 MIL/uL (4.00-5.50); RED CELL DISTRIBUTION WIDTH 17.8 % (11.0-15.5); WHITE BLOOD COUNT (AUTO) 5.2 K/uL (4.8-10.8)
[2019-12-01 04:42] LABS: CREATININE 1.8 mg/dL (0.5-1.5); POTASSIUM 3.9 mmol/L (3.5-5.1)
[2019-12-01 04:49] LABS: INR 1.49 (0.85-1.15); PARTIAL THROMBOPLASTIN TIME 34.1 SEC (26.3-35.5); PROTHROMBIN TIME 15.8 SEC (9.6-11.6)
[2019-12-01] MEDS ORDERED: SODIUM CHLORIDE 0.9% 250 ML IV ONE (04:49)
[2019-12-01 04:54] LABS: BAND NEUTROPHILS % (MANUAL) 8 % (0-2); LYMPHOCYTES % (MANUAL) 16 % (22-44); MAN.DIFF COMMENT-IMPRESSION MANUAL DIFFERENTIAL; MONOCYTES % (MANUAL) 4 % (2-9); PLATELET MORPHOLOGY COMMENT DECREASED; SEGMENTED NEUTROPHILS % 72 % (40-70)
[2019-12-01] MEDS: LEVOTHYROXINE 150 MCG TABLET PO SCH (06:30)
[2019-12-01] MEDS: LACTULOSE 20 GM/30 ML UDCUP PO SCH (09:00)
[2019-12-01] MEDS: MIDODRINE HCL 5 MG TABLET PO SCH ×3 (09:00→21:38)
[2019-12-01] MEDS: PANTOPRAZOLE 40 MG/VIAL IVP SCH (09:00)
[2019-12-01] MEDS: RIFAXIMIN 550 MG TABLET PO SCH ×2 (09:00→21:37)
[2019-12-01] MEDS ORDERED: RENAL DOSE IV PRN (11:00)
--- NOTE | 2019-12-01 11:24 | NUR ---
cm note met with patient and states resides at home with spouse, independent with adls and self care. states she drives, and does have medical equipment that belongs to her spouse, but she says she can use. has a standard walker and a fancy walker, pt. states would prefer to go home at time of dc, discussed snf level of care, but states will wait until md makes recommendations. will continue to f/u with pt at dc. Addendum: 12/01/19 at 1828 by ISAURO STERN CM spoke to pt and obtained choice letter and agrees to any in network provider for home health, if md orders. Kalpesh luciano is in network if md orders postop. will continue to follow.
[2019-12-01 11:32] LABS: PLATELET COUNT (AUTO) 110 K/uL (130-400)
[2019-12-01] MEDS ORDERED: LIDOCAINE PF 2% 5ML ABBOJECT ONE (12:11)
[2019-12-01] MEDS ORDERED: ROCURONIUM 10MG/1ML SYR 10 MG/ML ML ONE (12:11)
[2019-12-01] MEDS ORDERED: SUCCINYLCHOLINE CHLORIDE 20 MG/ML 10 ML VIAL ONE (12:11)
[2019-12-01] MEDS ORDERED: PROPOFOL 10 MG/ML 20ML VIAL IV ONE (12:11)
[2019-12-01] MEDS ORDERED: ROPIVACAINE 0.5% 5MG/ML 30ML IJ ONE (12:12)
[2019-12-01] MEDS ORDERED: PHENYLEPHRINE HCL 10 MG/ML 1ML VIAL IV ONE (12:13)
[2019-12-01] MEDS ORDERED: SODIUM CHLORIDE 0.9% 10 ML VIAL ONE (12:13)
[2019-12-01 12:26] LABS: BASOPHILS % (AUTO) 0.2 % (0.0-5.0); EOSINOPHILS % (AUTO) 0.3 % (0.0-8.0); HEMATOCRIT 21.5 % (36-48); MEAN CORPUSCULAR HGB CONC 32.6 g/dL (32.0-36.0); MEAN CORPUSCULAR VOLUME 89.2 fL (79-99); MONOCYTES % (AUTO) 12.3 % (3.0-13.0); NEUTROPHILS % (AUTO) 79.6 % (40.0-77.0); RED BLOOD CELL COUNT(AUTO) 2.41 MIL/uL (4.00-5.50); RED CELL DISTRIBUTION WIDTH 18.4 % (11.0-15.5); WHITE BLOOD COUNT (AUTO) 6.3 K/uL (4.8-10.8)
[2019-12-01] MEDS ORDERED: CEFAZOLIN SODIUM 1 GM VIAL ONE (12:29)
[2019-12-01] MEDS ORDERED: LACTATED RINGERS 1000ML 1,000 ML IV ONE (12:29)
[2019-12-01] MEDS ORDERED: KETAMINE 50MG/ML SYRINGE 50 MG/ML DISP.SYRIN IV ONE (12:38)
[2019-12-01] MEDS ORDERED: NEOSTIGMINE 5MG/5ML SYR IV ONE (13:30)
[2019-12-01] MEDS ORDERED: ONDANSETRON HCL 4 MG/2 ML VIAL ONE (13:30)
[2019-12-01] MEDS ORDERED: GLYCOPYRROLATE 1 MG/5 ML SYRINGE ONE (13:30)
[2019-12-01] MEDS ORDERED: FUROSEMIDE 10 MG/ML 4ML VIAL ONE (13:58)
[2019-12-01] MEDS ORDERED: SUGAMMADEX SODIUM 200 MG/2 ML VIAL IV ONE (14:23)
[2019-12-01] MEDS: ZOSYN 3.375GM+NS 50ML 50 ML IV SCH ×2 (15:00→21:38)
[2019-12-02 03:00] VITALS: BP 107/64
[2019-12-02 05:05] LABS: EOSINOPHILS % (AUTO) 0.1 % (0.0-8.0); HEMATOCRIT 25.6 % (36-48); LYMPHOCYTES % (AUTO) 5.2 % (21.0-51.0); MEAN CORPUSCULAR HEMOGLOBIN 29.5 pg (27.0-33.0); MEAN CORPUSCULAR HGB CONC 33.2 g/dL (32.0-36.0); MEAN CORPUSCULAR VOLUME 88.9 fL (79-99); MONOCYTES % (AUTO) 14.9 % (3.0-13.0); NEUTROPHILS % (AUTO) 79.4 % (40.0-77.0); NUCLEATED RED BLOOD CELLS 0.6 % (0.0-0.19); PLATELET COUNT (AUTO) 91 K/uL (130-400); RED BLOOD CELL COUNT(AUTO) 2.88 MIL/uL (4.00-5.50); RED CELL DISTRIBUTION WIDTH 16.8 % (11.0-15.5); WHITE BLOOD COUNT (AUTO) 6.9 K/uL (4.8-10.8)
[2019-12-02 05:10] LABS: CREATININE 1.9 mg/dL (0.5-1.5); MAGNESIUM 2.1 mg/dL (1.80-2.40); POTASSIUM 3.6 mmol/L (3.5-5.1)
[2019-12-02] MEDS: LEVOTHYROXINE 150 MCG TABLET PO SCH (06:40)
[2019-12-02 08:00] VITALS: BP 113/68
[2019-12-02] MEDS: PANTOPRAZOLE 40 MG/VIAL IVP SCH (09:39)
[2019-12-02] MEDS: MIDODRINE HCL 5 MG TABLET PO SCH ×3 (09:39→21:42)
[2019-12-02] MEDS: LACTULOSE 20 GM/30 ML UDCUP PO SCH (09:39)
[2019-12-02] MEDS: RIFAXIMIN 550 MG TABLET PO SCH ×2 (09:39→21:42)
[2019-12-02] MEDS: ZOSYN 3.375GM+NS 50ML 50 ML IV SCH ×2 (09:40→21:42)
[2019-12-02 12:00] VITALS: BP 120/65
[2019-12-02] MEDS: TRAMADOL HCL 50 MG TABLET PO PRN ×2 (12:04→21:42)
[2019-12-02 16:00] VITALS: BP 117/71
[2019-12-02 19:00] VITALS: BP 113/68
[2019-12-03] VITALS: BP 121/70
[2019-12-03 04:00] VITALS: BP 106/64
[2019-12-03] MEDS: LEVOTHYROXINE 150 MCG TABLET PO SCH (06:17)
[2019-12-03 06:59] LABS: BASOPHILS % (AUTO) 0.2 % (0.0-5.0); EOSINOPHILS % (AUTO) 4.9 % (0.0-8.0); HEMATOCRIT 24.9 % (36-48); LYMPHOCYTES % (AUTO) 7.4 % (21.0-51.0); MEAN CORPUSCULAR HEMOGLOBIN 29.5 pg (27.0-33.0); MEAN CORPUSCULAR HGB CONC 32.9 g/dL (32.0-36.0); MEAN CORPUSCULAR VOLUME 89.6 fL (79-99); MONOCYTES % (AUTO) 11.2 % (3.0-13.0); NEUTROPHILS % (AUTO) 75.7 % (40.0-77.0); PLATELET COUNT (AUTO) 78 K/uL (130-400); RED BLOOD CELL COUNT(AUTO) 2.78 MIL/uL (4.00-5.50); RED CELL DISTRIBUTION WIDTH 17.9 % (11.0-15.5); WHITE BLOOD COUNT (AUTO) 6.5 K/uL (4.8-10.8)
[2019-12-03 07:33] LABS: CREATININE 1.6 mg/dL (0.5-1.5); POTASSIUM 3.5 mmol/L (3.5-5.1)
[2019-12-03 08:00] VITALS: BP 116/65
[2019-12-03] MEDS: MIDODRINE HCL 5 MG TABLET PO SCH ×3 (08:14→20:14)
[2019-12-03] MEDS: LACTULOSE 20 GM/30 ML UDCUP PO SCH (08:14)
[2019-12-03] MEDS: RIFAXIMIN 550 MG TABLET PO SCH ×2 (08:14→20:14)
[2019-12-03] MEDS: ZOSYN 3.375GM+NS 50ML 50 ML IV SCH ×2 (08:14→20:14)
[2019-12-03] MEDS: PANTOPRAZOLE 40 MG/VIAL IVP SCH (08:14)
[2019-12-03] MEDS: PANTOPRAZOLE SODIUM 40 MG TABLET.DR PO SCH (08:42)
[2019-12-03] MEDS: TRAMADOL HCL 50 MG TABLET PO PRN ×2 (10:24→16:46)
[2019-12-03 11:23] VITALS: BP 116/72
[2019-12-03 16:00] VITALS: BP 114/68
[2019-12-03 20:25] VITALS: BP 115/72
[2019-12-04 00:56] VITALS: BP 108/67
[2019-12-04] MEDS: TRAMADOL HCL 50 MG TABLET PO PRN ×2 (04:02→10:45)
[2019-12-04 04:55] VITALS: BP 110/68
[2019-12-04] MEDS: LEVOTHYROXINE 150 MCG TABLET PO SCH (05:37)
[2019-12-04] MEDS: PANTOPRAZOLE SODIUM 40 MG TABLET.DR PO SCH (05:39)
--- NOTE | 2019-12-04 05:54 | NUR ---
DRESSING CHANGE DRESSING SOAKED WITH SEROSANGUINEOUS DRAINAGE. CHANGED DRESSING. PT BENJAMIN DRESSING CHANGE WELL.
[2019-12-04 08:33] VITALS: BP 91/61
[2019-12-04] MEDS: ZOSYN 3.375GM+NS 50ML 50 ML IV SCH ×2 (09:17→20:25)
[2019-12-04] MEDS: MIDODRINE HCL 5 MG TABLET PO SCH ×3 (09:17→20:26)
[2019-12-04] MEDS: RIFAXIMIN 550 MG TABLET PO SCH ×2 (09:17→20:26)
[2019-12-04] MEDS: LACTULOSE 20 GM/30 ML UDCUP PO SCH (09:17)
[2019-12-04 12:56] VITALS: BP 97/59
--- NOTE | 2019-12-04 13:16 | NUR ---
CM note: [facility] pending approval CM me met w/pt, agreeable still to continue w/[facility] or any In network HH, declined SNF, YARITZA signed. Faxed order, clinicals, PT to [facility], confirmation received. Spoke to Keenan will coordinate w/the dept. Pt pending approval. Primary nurse aware. CM to cont to follow up.
--- NOTE | 2019-12-04 15:36 | NUR ---
EDENILSON Note: Kalpesh pending approval CM spoke to Nabila khan/Kalpesh HODGE, currently checking pt's benefits. Pt pending approval. Primary nurse aware. CM to cont to follow up.
[2019-12-04 18:09] VITALS: BP 103/62
[2019-12-04 19:25] VITALS: BP 99/66
[2019-12-05 03:14] VITALS: BP 100/59
[2019-12-05 03:47] LABS: BASOPHILS % (AUTO) 0.3 % (0.0-5.0); EOSINOPHILS % (AUTO) 6.2 % (0.0-8.0); HEMATOCRIT 24.2 % (36-48); LYMPHOCYTES % (AUTO) 7.8 % (21.0-51.0); MEAN CORPUSCULAR HGB CONC 33.9 g/dL (32.0-36.0); MEAN CORPUSCULAR VOLUME 88.6 fL (79-99); NEUTROPHILS % (AUTO) 73.3 % (40.0-77.0); PLATELET COUNT (AUTO) 69 K/uL (130-400); RED BLOOD CELL COUNT(AUTO) 2.73 MIL/uL (4.00-5.50); RED CELL DISTRIBUTION WIDTH 18.4 % (11.0-15.5); WHITE BLOOD COUNT (AUTO) 6.3 K/uL (4.8-10.8)
[2019-12-05 03:57] LABS: CREATININE 1.5 mg/dL (0.5-1.5); POTASSIUM 3.3 mmol/L (3.5-5.1)
--- NOTE | 2019-12-05 04:09 | NUR ---
paged [employer] miner POTASSIUM OF 3.3 TODAY. KALEE ORTIZ ORDERED A ONE TIME DOSE OF POTASSIUM- SEE MAR.
[2019-12-05] MEDS ORDERED: POTASSIUM CHLORIDE 20 MEQ ERTAB PO ONE (04:15)
[2019-12-05] MEDS: PANTOPRAZOLE SODIUM 40 MG TABLET.DR PO SCH (05:12)
[2019-12-05] MEDS: LEVOTHYROXINE 150 MCG TABLET PO SCH (05:12)
[2019-12-05 07:33] VITALS: BP 96/58
[2019-12-05] MEDS: LACTULOSE 20 GM/30 ML UDCUP PO SCH (09:00)
[2019-12-05] MEDS: MIDODRINE HCL 5 MG TABLET PO SCH (09:26)
[2019-12-05] MEDS: RIFAXIMIN 550 MG TABLET PO SCH (09:26)
[2019-12-05] MEDS: ZOSYN 3.375GM+NS 50ML 50 ML IV SCH (09:27)
[2019-12-05] MEDS ORDERED: POTASSIUM CHLORIDE 20 MEQ ERTAB PO PRN (09:30)
[2019-12-05] MEDS ORDERED: LIDOCAINE HCL-MPF 1% 2ML VIAL IV PRN (09:30)
[2019-12-05] MEDS ORDERED: POTASSIUM CHLORIDE 20MEQ/100ML 100 ML IV PRN (09:30)
[2019-12-05] MEDS ORDERED: POTASSIUM CHLORIDE 10% ELIXIR 20 MEQ/15 ML UDCUP PO PRN (09:30)
[2019-12-05] MEDS: TRAMADOL HCL 50 MG TABLET PO PRN (09:33)
--- NOTE | 2019-12-05 10:18 | NUR ---
CM Note: Kalpesh approval CM spoke to Basia khan/Kalpesh HODGE, pt has approval. Primary nurse aware. Primary nurse to give report once pt ready to DC. Primary nurse aware. CM to cont to follow up.
[2019-12-05 10:36] VITALS: BP 102/60
== END 2019-12-05 15:35 | disposition home health service (06) | DRG 956 ==
LOC: EDH 13:37 → EDHIP 16:06 → 2BH 18:15 → 4BH 11-30 16:59
PROVIDERS: ADMIT Internal Medicine; ATTEND Internal Medicine
PROC: 0W9G3ZZ Drainage of Peritoneal Cavity, Percutaneous Approach (ICD-10-PCS; 2019-11-29)
PROC: 30233K1 Transfusion of Nonautologous Frozen Plasma into Peripheral Vein, Percutaneous Approach (ICD-10-PCS; 2019-11-29)
PROC: 30233N1 Transfusion of Nonautologous Red Blood Cells into Peripheral Vein, Percutaneous Approach (ICD-10-PCS; 2019-11-29)
PROC: 30233M1 Transfusion of Nonautologous Plasma Cryoprecipitate into Peripheral Vein, Percutaneous Approach (ICD-10-PCS; 2019-11-29)
PROC: 30233R1 Transfusion of Nonautologous Platelets into Peripheral Vein, Percutaneous Approach (ICD-10-PCS; 2019-12-01)
PROC: 3E0T3BZ Introduction of Anesthetic Agent into Peripheral Nerves and Plexi, Percutaneous Approach (ICD-10-PCS; 2019-12-01)
PROC: 0QH736Z Insertion of Intramedullary Internal Fixation Device into Left Upper Femur, Percutaneous Approach (ICD-10-PCS; principal; 2019-12-01 13:20)
DX: S72.142A Displaced intertrochanteric fracture of left femur, initial encounter for closed fracture (principal); T79.6XXA Traumatic ischemia of muscle, initial encounter; E87.2 Acidosis; N39.0 Urinary tract infection, site not specified; D61.818 Other pancytopenia; D68.4 Acquired coagulation factor deficiency; K76.6 Portal hypertension; K92.2 Gastrointestinal hemorrhage, unspecified; D62 Acute posthemorrhagic anemia; E87.1 Hypo-osmolality and hyponatremia; K52.1 Toxic gastroenteritis and colitis; N17.9 Acute kidney failure, unspecified; E87.5 Hyperkalemia; T47.3X5A Adverse effect of saline and osmotic laxatives, initial encounter; K70.30 Alcoholic cirrhosis of liver without ascites; E87.8 Other disorders of electrolyte and fluid balance, not elsewhere classified; I12.9 Hypertensive chronic kidney disease with stage 1 through stage 4 chronic kidney disease, or unspecified chronic kidney disease; N18.9 Chronic kidney disease, unspecified; B96.1 Klebsiella pneumoniae [K. pneumoniae] as the cause of diseases classified elsewhere; K72.90 Hepatic failure, unspecified without coma; D69.59 Other secondary thrombocytopenia; D63.8 Anemia in other chronic diseases classified elsewhere; E03.9 Hypothyroidism, unspecified; E78.00 Pure hypercholesterolemia, unspecified; I95.89 Other hypotension; K70.31 Alcoholic cirrhosis of liver with ascites; D73.1 Hypersplenism; W18.30XA Fall on same level, unspecified, initial encounter; E78.5 Hyperlipidemia, unspecified; E11.22 Type 2 diabetes mellitus with diabetic chronic kidney disease; Y92.89 Other specified places as the place of occurrence of the external cause; Z87.891 Personal history of nicotine dependence; Z83.3 Family history of diabetes mellitus; Z79.899 Other long term (current) drug therapy; Y93.89 Activity, other specified; Y99.8 Other external cause status
CPT/HCPCS: 36415; 36430; 70450; 71045; 73502; 73503; 76770; 80048; 80053; 80076; 81001; 82042; 82140; 82533; 82550; 82570; 82948; 83540; 83550; 83735; 83880; 83935; 84100; 84145; 84300; 84443; 84478; 84484; 84550; 85014; 85018; 85025; 85049; 85384; 85610; 85730; 86850; 86900; 86901; 86922; 86927; 87071; 87077; 87088; 87186; 87205; 89051; 93005; 93306; 93356; 97039; C9113; G0378; J0330; J0690; J0696; J1940; J2001; J2270; J2354; J2370; J2405; J2543; J2597; J2704; J2710; J2765; J2795; J3430; J3475; J3490; J7030; J7040; J7050; J7120; P9012; P9016; P9017; P9034; P9046; P9047

== ENCOUNTER 2019-12-05 23:54 | Observation (INO) | payer OTHER ==
[2019-12-06 00:23] LABS: APPEARANCE,URINE Cloudy (CLEAR); BILIRUBIN,URINE Large (NEGATIVE); COLOR,URINE Dark Yellow (YELLOW); GLUCOSE, URINE (UA) Negative (NEGATIVE); KETONES,URINE Negative (NEGATIVE); LEUKOCYTE ESTERASE ,URINE Small (NEGATIVE); NITRATE,URINE Positive (NEGATIVE); OCCULT BLOOD,URINE Trace (NEGATIVE); PROTEIN,URINE Trace mg/dL (NEGATIVE)
[2019-12-06 00:28] LABS: BASOPHILS % (AUTO) 0.4 % (0.0-5.0); EOSINOPHILS % (AUTO) 1.3 % (0.0-8.0); HEMATOCRIT 25.8 % (36-48); LYMPHOCYTES % (AUTO) 3.9 % (21.0-51.0); MEAN CORPUSCULAR HEMOGLOBIN 30.7 pg (27.0-33.0); MEAN CORPUSCULAR HGB CONC 34.1 g/dL (32.0-36.0); MEAN CORPUSCULAR VOLUME 89.9 fL (79-99); MONOCYTES % (AUTO) 11.3 % (3.0-13.0); NEUTROPHILS % (AUTO) 81.6 % (40.0-77.0); PLATELET COUNT (AUTO) 62 K/uL (130-400); RED BLOOD CELL COUNT(AUTO) 2.87 MIL/uL (4.00-5.50); RED CELL DISTRIBUTION WIDTH 19.1 % (11.0-15.5); WHITE BLOOD COUNT (AUTO) 6.7 K/uL (4.8-10.8)
[2019-12-06 00:33] LABS: CREATININE 1.6 mg/dL (0.5-1.5); POTASSIUM 3.3 mmol/L (3.5-5.1)
[2019-12-06 00:42] LABS: BACTERIA,URINE Moderate /HPF (None Seen); SQUAMOUS EPITHELIAL CELL,UR Many /HPF (0-2)
[2019-12-06 00:43] LABS: AMORPHOUS SEDIMENT,UR Few /LPF (None Seen); MUCUS,URINE Moderate LPF (None Seen); RENAL EPITHELIAL CELLS,URINE Moderate /HPF (None Seen)
[2019-12-06 00:46] LABS: ALBUMIN 2.9 g/dL (3.5-5.0); TOTAL PROTEIN, SERUM 5.7 g/dL (6.0-8.3)
[2019-12-06] MEDS ORDERED: ONDANSETRON HCL 4 MG/2 ML VIAL ONE (01:02)
[2019-12-06] MEDS ORDERED: MORPHINE SULFATE 4 MG/1ML SYG ONE (01:02)
[2019-12-06 01:03] LABS: BILIRUBIN,TOTAL 17.5 mg/dL (0.2-1.0)
[2019-12-06 02:56] LABS: INR 1.71 (0.85-1.15); PARTIAL THROMBOPLASTIN TIME 34.1 SEC (26.3-35.5); PROTHROMBIN TIME 18.1 SEC (9.6-11.6)
[2019-12-06] MEDS ORDERED: LACTULOSE 20 GM/30 ML UDCUP PO PRN (03:00)
[2019-12-06] MEDS ORDERED: ONDANSETRON HCL 4 MG/2 ML VIAL IV PRN (03:00)
[2019-12-06] MEDS ORDERED: MORPHINE SULFATE 2 MG/ML 1ML SYG IVP PRN (03:00)
[2019-12-06] MEDS ORDERED: CEFTRIAXONE SODIUM 1 GM IV SCH (03:00)
[2019-12-06] MEDS ORDERED: POTASSIUM CHLORIDE 20 MEQ ERTAB PO SCH (03:45)
[2019-12-06] MEDS ORDERED: CEFTRIAXONE SODIUM 1 GM ONE (04:53)
[2019-12-06] MEDS ORDERED: POTASSIUM CHLORIDE 20 MEQ ERTAB PO ONE (04:53)
[2019-12-06] MEDS ORDERED: PANTOPRAZOLE SODIUM 40 MG TABLET.DR PO SCH (09:00)
[2019-12-06] MEDS ORDERED: PANTOPRAZOLE SODIUM 40 MG TABLET.DR ONE (09:14)
--- NOTE | 2019-12-06 13:37 | NUR ---
Discharge forms completed in computer. Per primary nurse, Tabatha, nephrology and surgical consult cancelled by Dr. Raymundo. Follow up appt set with PCP Dr. Bright for tomorrow, 12/06 @ 9:30 am. RX for tramadol 50 po tid prn pain in chart. Pt currently on bedpan. Discharge instructions, removal of PIV, EMS arrangements, and family to be notified by ED primary nurse Tabatha. Endorsed to same.
== END 2019-12-06 18:45 | disposition home or self-care (01) ==
LOC: EDH 23:54 → INTOOBSV 12-06 02:57 → EDHIP 12-06 02:57
PROVIDERS: ADMIT Internal Medicine; ATTEND Internal Medicine
DX: E80.6 Other disorders of bilirubin metabolism (principal); R74.8 Abnormal levels of other serum enzymes; K80.20 Calculus of gallbladder without cholecystitis without obstruction; I12.9 Hypertensive chronic kidney disease with stage 1 through stage 4 chronic kidney disease, or unspecified chronic kidney disease; E11.22 Type 2 diabetes mellitus with diabetic chronic kidney disease; N18.9 Chronic kidney disease, unspecified; N39.0 Urinary tract infection, site not specified; N17.9 Acute kidney failure, unspecified; K70.31 Alcoholic cirrhosis of liver with ascites; J44.9 Chronic obstructive pulmonary disease, unspecified; E87.6 Hypokalemia; E87.1 Hypo-osmolality and hyponatremia; D69.6 Thrombocytopenia, unspecified; E78.5 Hyperlipidemia, unspecified; E87.2 Acidosis; F02.80 Dementia in other diseases classified elsewhere, unspecified severity, without behavioral disturbance, psychotic disturbance, mood disturbance, and anxiety; G30.9 Alzheimer's disease, unspecified; Z87.891 Personal history of nicotine dependence
CPT/HCPCS: 36415; 73502; 74181; 76705; 80053; 81001; 82140; 82550; 83690; 84484; 85025; 85610; 85730; 87088; 93005; 99285; G0378 ×16; J0696; J2270; J2405

== ENCOUNTER 2019-12-17 20:30 | Inpatient (IN) | payer OTHER ==
[~2019-12-17] VITALS: Ht 160 cm; Wt 71.1 kg
[2019-12-17 21:12] LABS: BASOPHILS % (AUTO) 0.2 % (0.0-5.0); EOSINOPHILS % (AUTO) 1.7 % (0.0-8.0); HEMATOCRIT 30.4 % (36-48); MEAN CORPUSCULAR HEMOGLOBIN 33.3 pg (27.0-33.0); MEAN CORPUSCULAR HGB CONC 35.9 g/dL (32.0-36.0); MONOCYTES % (AUTO) 15.3 % (3.0-13.0); NEUTROPHILS % (AUTO) 76.4 % (40.0-77.0); PLATELET COUNT (AUTO) 78 K/uL (130-400); RED BLOOD CELL COUNT(AUTO) 3.27 MIL/uL (4.00-5.50); RED CELL DISTRIBUTION WIDTH 26.5 % (11.0-15.5)
[2019-12-17 22:01] LABS: CREATININE 3.1 mg/dL (0.5-1.5); TOTAL PROTEIN, SERUM 6.8 g/dL (6.0-8.3)
[2019-12-17 22:10] LABS: BILIRUBIN,TOTAL 38.3 mg/dL (0.2-1.0)
[2019-12-17] MEDS: INSULIN HUMULIN R 100 UNIT/ML 3ML IV SCH (23:00)
[2019-12-17] MEDS: DEXTROSE 50%-WATER 25 GM/50 ML VIAL IV SCH (23:00)
[2019-12-17] MEDS: CALCIUM GLUCONATE 1 GM/10 ML VIAL IV SCH (23:00)
[2019-12-17 23:01] LABS: INR 1.72 (0.85-1.15); PARTIAL THROMBOPLASTIN TIME 44.9 SEC (26.3-35.5); PROTHROMBIN TIME 18.2 SEC (9.6-11.6)
[2019-12-17] MEDS ORDERED: MORPHINE SULFATE 2 MG/ML 1ML SYG IV PRN (23:15)
[2019-12-17] MEDS: LACTULOSE 20 GM/30 ML UDCUP PO SCH (23:15)
[2019-12-18] VITALS (17 sets, daily range): BP systolic 93–117; BP diastolic 45–73
[2019-12-18] MEDS ORDERED: LACTULOSE 20 GM/30 ML UDCUP ONE (00:06)
[2019-12-18] MEDS ORDERED: CALCIUM GLUCONATE 1 GM/10 ML VIAL IV ONE (00:06)
[2019-12-18] MEDS ORDERED: ZOSYN 3.375GM+NS 50ML 50 ML IV ONE (00:06)
[2019-12-18] MEDS ORDERED: INSULIN HUMULIN R 100 UNIT/ML 3ML ONE (00:07)
[2019-12-18] MEDS ORDERED: DEXTROSE 50%-WATER 50 ML DISP.SYRIN IV ONE (00:10)
[2019-12-18 01:36] LABS: APPEARANCE,URINE Turbid (CLEAR); BILIRUBIN,URINE Large (NEGATIVE); COLOR,URINE Dark Yellow (YELLOW); GLUCOSE, URINE (UA) TRACE mg/dL (NEGATIVE); KETONES,URINE Negative (NEGATIVE); LEUKOCYTE ESTERASE ,URINE Moderate (NEGATIVE); NITRATE,URINE Positive (NEGATIVE); OCCULT BLOOD,URINE Moderate (NEGATIVE); PROTEIN,URINE POS 1+ mg/dL (NEGATIVE); UROBILINOGEN,URINE 0.2 mg/dL (0.2-1.0)
[2019-12-18 01:50] LABS: BACTERIA,URINE Few /HPF (None Seen); RBC,URINE 0-1 /HPF (0-1)
[2019-12-18 01:51] LABS: AMORPHOUS SEDIMENT,UR Few /LPF (None Seen)
[2019-12-18 04:43] LABS: BASOPHILS % (AUTO) 0.1 % (0.0-5.0); EOSINOPHILS % (AUTO) 1.3 % (0.0-8.0); HEMATOCRIT 30.6 % (36-48); LYMPHOCYTES % (AUTO) 4.4 % (21.0-51.0); MEAN CORPUSCULAR HEMOGLOBIN 32.9 pg (27.0-33.0); MEAN CORPUSCULAR HGB CONC 35.3 g/dL (32.0-36.0); MEAN CORPUSCULAR VOLUME 93.3 fL (79-99); MONOCYTES % (AUTO) 13.6 % (3.0-13.0); NEUTROPHILS % (AUTO) 78.4 % (40.0-77.0); PLATELET COUNT (AUTO) 69 K/uL (130-400); RED BLOOD CELL COUNT(AUTO) 3.28 MIL/uL (4.00-5.50); RED CELL DISTRIBUTION WIDTH 27.1 % (11.0-15.5); WHITE BLOOD COUNT (AUTO) 7.7 K/uL (4.8-10.8)
[2019-12-18 05:00] LABS: CREATININE 3.3 mg/dL (0.5-1.5); POTASSIUM 5.5 mmol/L (3.5-5.1)
[2019-12-18] MEDS ORDERED: SODIUM POLYSTYRENE SULFONATE 15 GM/60 ML ML PO STA (05:43)
[2019-12-18] MEDS ORDERED: SODIUM POLYSTYRENE SULFONATE 15 GM/60 ML ML ONE (06:34)
[2019-12-18] MEDS: LACTULOSE 20 GM/30 ML UDCUP PO SCH ×2 (07:15→12:20)
[2019-12-18] MEDS: INSULIN HUMULIN R 100 UNIT/ML 3ML SQ SCH ×4 (07:30→21:00)
[2019-12-18] MEDS ORDERED: TRAM50TA4 PO (08:14)
[2019-12-18] MEDS ORDERED: VANCOMYCIN PROTOCOL PER PHARMACY IV SCH (08:45)
[2019-12-18] MEDS ORDERED: RENAL DOSE IV SCH (08:45)
[2019-12-18] MEDS: LEVOTHYROXINE 150 MCG TABLET PO SCH (08:56)
--- NOTE | 2019-12-18 09:57 | NUR ---
DC Plan Met with patient to discuss dcp. [facility] has HH, but unable to recall name of agency. CM reviewed old records and noted [facility] was last agency set up. CM called [facility] and verified that patient is still active with their services. Denies having a provider. [facility] able to drive, bathe and dress. [facility] needs help cooking and cleaning. Nursing notified CM that called and wanting patient to go to a rehab facility. Discussed this with patient. Patient not wanting to go somewhere patient has to stay the night. Informed patient she's at risk for readmission. Patient unsure about dc plan. CM to revisit. Tentative dcp SNF vs Home w/ [facility]. CD Addendum: 12/18/19 at 1013 by GRANT MATTHEWS CM Amended: Links added.
[2019-12-18 10:22] LABS: ALBUMIN 2.8 g/dL (3.5-5.0); CREATININE 3.6 mg/dL (0.5-1.5); POTASSIUM 5.9 mmol/L (3.5-5.1); TOTAL PROTEIN, SERUM 6.5 g/dL (6.0-8.3)
[2019-12-18 10:24] LABS: BILIRUBIN,DIRECT 27.3 mg/dL (0.0-0.3); BILIRUBIN,TOTAL 36.7 mg/dL (0.2-1.0)
[2019-12-18] MEDS ORDERED: ALBUMIN (HUMAN) 25% 200 ML IV SCH ×2 (11:30→15:00)
--- NOTE | 2019-12-18 11:30 | NUR ---
U/S GUIDED PARACENTESIS PROCEDURE PERFORMED BY DR. KULKARNI. PUNCTURE SITE RIGHT UPPER QUADRANT OF ABDOMEN AND PATIENT TOLERATED PROCEDURE WELL. TOTAL REMOVED 6.5 LITERS OF CLOUDY DARK YELLOW GREEN ASCITES FLUID. END OF PROCEDURE AT 1205. CATHETER REMOVED AND DRESSING APPLIED. NO BLEEDING NOTED. ALBUMIN 25% 50 GRAMS GIVEN PER [facility] [place] ALBUMIN PROTOCOL UPON ARRIVAL TO FLOOR. CALLED REPORT TO GLENN GAN, ICU NURSE. PATIENT TRANSPORTED VIA BED TO RM 215 @ 1220. PT STABLE, DROWSY, AO X3 WITH NO C/O PAIN.
[2019-12-18] MEDS ORDERED: VANCOMYCIN 1GM+NS 250ML 250 ML IV SCH (11:45)
[2019-12-18] MEDS ORDERED: COMPOUND IV REFRIGERATED 1 EACH IVSOLN MISC PRN (11:45)
[2019-12-18] MEDS: ZOSYN 3.375GM+NS 50ML 50 ML IV SCH ×2 (12:20→23:49)
[2019-12-18] MEDS ORDERED: PHARMACY COMMUNICATION MISC SCH ×2 (12:30→13:15)
[2019-12-18] MEDS: PANTOPRAZOLE 40 MG/VIAL IVP SCH (12:54)
[2019-12-18] MEDS ORDERED: ALBUMIN (HUMAN) 25% 50 ML IV SCH (13:00)
[2019-12-18 13:53] LABS: APPEARANCE BODY FLUID CLEAR (CLEAR); BODY FLUID WBC 10 /cu. mm.; COLOR,BODY FLUID YELLOW (LT YELLOW); SPECIMENTYPE,BODY FLUID ASCITES; TOTAL VOLUME,BODY FLUID 6500 mL
[2019-12-18 13:54] LABS: BODY FLUID RBC 178 /cu. mm.
[2019-12-18 14:00] LABS: BF LYMPHOCYTE 31 %; BF MESOTHELIAL 17 %
[2019-12-18] MEDS ORDERED: SODIUM POLYSTYRENE SULFONATE 15 GM/60 ML ML PO SCH (14:00)
[2019-12-18] MEDS: MIDODRINE HCL 5 MG TABLET PO SCH ×2 (14:08→20:52)
[2019-12-18 14:46] LABS: CREATININE,URINE RANDOM 140 mg/dL (30-135); SODIUM,URINE RANDOM < 15 mmol/l (40-220)
[2019-12-18] MEDS ORDERED: OCTREOTIDE ACETATE 500 MCG in SODIUM CHLORIDE 0.9% 97.5 ML IV SCH (16:30)
[2019-12-18] MEDS ORDERED: OCTREOTIDE ACETATE 100 MCG/ML AMP SQ SCH (16:48)
[2019-12-18] MEDS: DEXTROSE 50%-WATER 25 GM/50 ML VIAL IV SCH (20:02)
[2019-12-18] MEDS: CALCIUM GLUCONATE 1 GM/10 ML VIAL IV SCH (20:02)
[2019-12-18] MEDS: INSULIN HUMULIN R 100 UNIT/ML 3ML IV SCH (20:03)
--- NOTE | 2019-12-18 20:41 | NUR ---
Spoke with ICU dayshift nurse Anayeli. States sandostatin drip not started as per Dr Cameron's orders. Subq dose given per dayshift nurse.
[2019-12-18] MEDS: SODIUM BICARBONATE 650 MG TAB PO SCH (20:53)
[2019-12-19] VITALS (15 sets, daily range): BP systolic 90–104; BP diastolic 41–60
[2019-12-19] MEDS: LEVOTHYROXINE 150 MCG TABLET PO SCH (05:37)
[2019-12-19] MEDS: INSULIN HUMULIN R 100 UNIT/ML 3ML SQ SCH ×4 (05:48→20:26)
[2019-12-19 05:51] LABS: BASOPHILS % (AUTO) 0.4 % (0.0-5.0); EOSINOPHILS % (AUTO) 5.3 % (0.0-8.0); HEMATOCRIT 26.2 % (36-48); LYMPHOCYTES % (AUTO) 6.2 % (21.0-51.0); MEAN CORPUSCULAR HEMOGLOBIN 33.2 pg (27.0-33.0); MEAN CORPUSCULAR HGB CONC 34.4 g/dL (32.0-36.0); MEAN CORPUSCULAR VOLUME 96.7 fL (79-99); MONOCYTES % (AUTO) 13.4 % (3.0-13.0); NEUTROPHILS % (AUTO) 73.6 % (40.0-77.0); PLATELET COUNT (AUTO) 48 K/uL (130-400); RED BLOOD CELL COUNT(AUTO) 2.71 MIL/uL (4.00-5.50); WHITE BLOOD COUNT (AUTO) 4.7 K/uL (4.8-10.8)
[2019-12-19 06:38] LABS: ALBUMIN 3.6 g/dL (3.5-5.0); CREATININE 3.7 mg/dL (0.5-1.5); MAGNESIUM 2.3 mg/dL (1.80-2.40); PHOSPHORUS 5.8 mg/dL (2.5-4.9); THYROID STIMULATING HORMONE 0.13 uIU/mL (0.36-3.74); TOTAL PROTEIN, SERUM 5.9 g/dL (6.0-8.3)
[2019-12-19 06:40] LABS: BILIRUBIN,TOTAL 33.3 mg/dL (0.2-1.0)
[2019-12-19] MEDS ORDERED: ALBUMIN (HUMAN) 25% 100 ML IV ONE (07:16)
[2019-12-19] MEDS: PANTOPRAZOLE 40 MG/VIAL IVP SCH (08:51)
[2019-12-19] MEDS: SODIUM BICARBONATE 650 MG TAB PO SCH ×2 (08:51→19:44)
[2019-12-19] MEDS: MIDODRINE HCL 5 MG TABLET PO SCH ×3 (08:51→19:53)
[2019-12-19] MEDS: LACTULOSE 20 GM/30 ML UDCUP PO SCH (08:51)
[2019-12-19] MEDS ORDERED: ALBUMIN (HUMAN) 25% 50 ML IV SCH (09:00)
[2019-12-19] MEDS: ALBUMIN (HUMAN) 25% 50 ML IV SCH ×2 (09:00→19:44)
[2019-12-19] MEDS ORDERED: MEROPENEM 1 GM VIAL IVP SCH (10:30)
[2019-12-19] MEDS: OCTREOTIDE ACETATE 100 MCG/ML AMP SQ SCH (19:45)
[2019-12-19] MEDS: MEROPENEM 1 GM VIAL IVP SCH (20:35)
[2019-12-19] MEDS: DEXTROSE 50%-WATER 25 GM/50 ML VIAL IV SCH (23:00)
[2019-12-19] MEDS: INSULIN HUMULIN R 100 UNIT/ML 3ML IV SCH (23:00)
[2019-12-19] MEDS: CALCIUM GLUCONATE 1 GM/10 ML VIAL IV SCH (23:00)
[2019-12-20 03:55] VITALS: BP 104/53
--- NOTE | 2019-12-20 05:22 | NUR ---
STATUS Pt slept fairly well.Denies pain or sob.Incontinent and luciano cath care rendered per staff.Turned and repositioned q 2 hrs.
[2019-12-20] MEDS: INSULIN HUMULIN R 100 UNIT/ML 3ML SQ SCH ×4 (05:37→21:00)
[2019-12-20 05:45] LABS: BASOPHILS % (AUTO) 0.7 % (0.0-5.0); EOSINOPHILS % (AUTO) 7.4 % (0.0-8.0); HEMATOCRIT 25.4 % (36-48); LYMPHOCYTES % (AUTO) 9.4 % (21.0-51.0); MEAN CORPUSCULAR HEMOGLOBIN 32.8 pg (27.0-33.0); MEAN CORPUSCULAR HGB CONC 34.3 g/dL (32.0-36.0); MEAN CORPUSCULAR VOLUME 95.8 fL (79-99); MONOCYTES % (AUTO) 17.9 % (3.0-13.0); NEUTROPHILS % (AUTO) 63.5 % (40.0-77.0); PLATELET COUNT (AUTO) 55 K/uL (130-400); RED BLOOD CELL COUNT(AUTO) 2.65 MIL/uL (4.00-5.50); WHITE BLOOD COUNT (AUTO) 4.5 K/uL (4.8-10.8)
[2019-12-20] MEDS: LEVOTHYROXINE 150 MCG TABLET PO SCH (06:17)
[2019-12-20 06:18] LABS: ALBUMIN 3.4 g/dL (3.5-5.0); CREATININE 3.4 mg/dL (0.5-1.5); PHOSPHORUS 4.5 mg/dL (2.5-4.9); POTASSIUM 3.6 mmol/L (3.5-5.1); TOTAL PROTEIN, SERUM 5.7 g/dL (6.0-8.3)
[2019-12-20 06:41] LABS: BILIRUBIN,TOTAL 32.6 mg/dL (0.2-1.0)
[2019-12-20 08:59] VITALS: BP 107/55
[2019-12-20] MEDS ORDERED: VANCOMYCIN 750MG + NS 250 ML IV SCH ×2 (09:00)
[2019-12-20] MEDS: LACTULOSE 20 GM/30 ML UDCUP PO SCH (09:33)
[2019-12-20] MEDS: SODIUM BICARBONATE 650 MG TAB PO SCH ×2 (09:33→21:15)
[2019-12-20] MEDS: MIDODRINE HCL 5 MG TABLET PO SCH ×3 (09:33→21:15)
[2019-12-20] MEDS: MEROPENEM 1 GM VIAL IVP SCH (09:33)
[2019-12-20] MEDS: PANTOPRAZOLE 40 MG/VIAL IVP SCH (10:21)
--- NOTE | 2019-12-20 12:41 | NUR ---
i have paged dr hunter to update pt's plan of care if surgical intervention is necessary or not to left hip.
[2019-12-20 12:47] VITALS: BP 121/65
--- NOTE | 2019-12-20 12:55 | NUR ---
i received a call back from dr hunter and he stated he would see the patient tomorrow to assess her left hip surgical site and decide if she needs surgery or not. orders received for labs.
--- NOTE | 2019-12-20 12:57 | NUR ---
i received a call from pt's and he stated that his is very heavy and he has a bad back and cant be lifting her out of bed at home and he wants the best care for her possible; he stated that it would probably be best if she goes to a snf because he has no help to take care of her at home.
[2019-12-20] MEDS: LEVOFLOXACIN 750 MG/D5W 150 ML 150 ML IV SCH (13:57)
--- NOTE | 2019-12-20 14:27 | NUR ---
[facility] CONSULT PATIENT ASSESSED REQUESTED: [facility] RECOMMENDATIONS SUBMITTED AND REPORT GIVEN TO PATIENT'S NURSE. Addendum: 12/21/19 at 1428 by CRISTOPHER TEJADA LVN Amended: Links added.
--- NOTE | 2019-12-20 14:50 | NUR ---
CM NOTE/DCP MEET WITH PATIENT IN ROOM REGARDING SNF REFERRAL. PER PATIENT OK FOR ANY SNF IN NETWORK, [facility] COMPLETED. [facility]. PER [facility], [facility] CAN [facility] WITH [facility] IN [facility]. [facility]. CM TO FOLLOW UP ACCORDINGLY.
[2019-12-20 16:00] VITALS: BP 102/56
--- NOTE | 2019-12-20 16:00 | NUR ---
dressings changed to left hip; pt has 3 well approx. inc. lines that are healing with hever in place, slight edema in general to the hip; pt has bruising to pubic area and bottom of left leg; scant old yellowish colored clear drainage on old dressing i removed from proximal inc. line. area cleansed with betadine and dry clean gauze dressing applied. pt angely. proc. well. no redness noted.
[2019-12-20 20:50] VITALS: BP 100/56
[2019-12-20] MEDS: OCTREOTIDE ACETATE 100 MCG/ML AMP SQ SCH (21:16)
[2019-12-20] MEDS: INSULIN HUMULIN R 100 UNIT/ML 3ML IV SCH (23:00)
[2019-12-20] MEDS: DEXTROSE 50%-WATER 25 GM/50 ML VIAL IV SCH (23:00)
[2019-12-20] MEDS: CALCIUM GLUCONATE 1 GM/10 ML VIAL IV SCH (23:00)
[2019-12-21 00:37] VITALS: BP 102/57
[2019-12-21 04:00] VITALS: BP 95/52
[2019-12-21 04:05] LABS: BASOPHILS % (AUTO) 0.4 % (0.0-5.0); EOSINOPHILS % (AUTO) 3.9 % (0.0-8.0); HEMATOCRIT 26.1 % (36-48); LYMPHOCYTES % (AUTO) 7.6 % (21.0-51.0); MEAN CORPUSCULAR HEMOGLOBIN 33.3 pg (27.0-33.0); MEAN CORPUSCULAR HGB CONC 34.5 g/dL (32.0-36.0); MEAN CORPUSCULAR VOLUME 96.7 fL (79-99); MONOCYTES % (AUTO) 16.5 % (3.0-13.0); NEUTROPHILS % (AUTO) 70.1 % (40.0-77.0); PLATELET COUNT (AUTO) 58 K/uL (130-400); WHITE BLOOD COUNT (AUTO) 4.6 K/uL (4.8-10.8)
[2019-12-21 04:41] LABS: ALBUMIN 3.1 g/dL (3.5-5.0); CREATININE 3.5 mg/dL (0.5-1.5); CRP QUANTITATIVE 36.5 mg/L (0.00-9.0); POTASSIUM 3.7 mmol/L (3.5-5.1); TOTAL PROTEIN, SERUM 5.7 g/dL (6.0-8.3)
[2019-12-21 04:46] LABS: BILIRUBIN,TOTAL 32.9 mg/dL (0.2-1.0)
[2019-12-21 05:03] LABS: ERYTHROCYTE SEDIMENTATION RATE 12 MM/HR (0-30)
[2019-12-21] MEDS: INSULIN HUMULIN R 100 UNIT/ML 3ML SQ SCH ×4 (06:09→20:44)
[2019-12-21] MEDS: LEVOTHYROXINE 150 MCG TABLET PO SCH (06:09)
[2019-12-21 08:30] VITALS: BP 113/58
[2019-12-21] MEDS: LACTULOSE 20 GM/30 ML UDCUP PO SCH (09:44)
[2019-12-21] MEDS: SODIUM BICARBONATE 650 MG TAB PO SCH ×2 (09:45→20:35)
[2019-12-21] MEDS: MIDODRINE HCL 5 MG TABLET PO SCH ×3 (09:45→20:36)
[2019-12-21] MEDS: PANTOPRAZOLE 40 MG/VIAL IVP SCH (09:45)
[2019-12-21 12:05] VITALS: BP 92/74
[2019-12-21] MEDS: AMOXICILLIN 500 MG CAPSULE PO SCH (12:31)
--- NOTE | 2019-12-21 13:33 | NUR ---
CM NOTE/[facility] SN[facility] CLINICAL PACKET AND PASRR FAXED TO [facility] MADE AWARE. PENDING COVID TESTING FOR SNF PLACEMENT. CM TO FOLLOW UP ACCORDINGLY.
[2019-12-21 16:30] VITALS: BP 109/68
[2019-12-21] MEDS: OCTREOTIDE ACETATE 100 MCG/ML AMP SQ SCH (20:36)
[2019-12-21] MEDS: CALCIUM GLUCONATE 1 GM/10 ML VIAL IV SCH (20:36)
[2019-12-21] MEDS: DEXTROSE 50%-WATER 25 GM/50 ML VIAL IV SCH (20:37)
[2019-12-21] MEDS: INSULIN HUMULIN R 100 UNIT/ML 3ML IV SCH (20:38)
[2019-12-21 20:51] VITALS: BP 115/75
[2019-12-22] VITALS (7 sets, daily range): BP systolic 94–123; BP diastolic 50–74
[2019-12-22] MEDS: AMOXICILLIN 500 MG CAPSULE PO SCH ×3 (00:27→23:33)
[2019-12-22] MEDS: INSULIN HUMULIN R 100 UNIT/ML 3ML SQ SCH ×4 (05:26→20:33)
[2019-12-22] MEDS: LEVOTHYROXINE 150 MCG TABLET PO SCH (05:49)
[2019-12-22 05:58] LABS: BASOPHILS % (AUTO) 0.3 % (0.0-5.0); EOSINOPHILS % (AUTO) 3.7 % (0.0-8.0); HEMATOCRIT 26.3 % (36-48); LYMPHOCYTES % (AUTO) 7.5 % (21.0-51.0); MEAN CORPUSCULAR HEMOGLOBIN 32.7 pg (27.0-33.0); MEAN CORPUSCULAR HGB CONC 34.6 g/dL (32.0-36.0); MEAN CORPUSCULAR VOLUME 94.6 fL (79-99); MONOCYTES % (AUTO) 17.2 % (3.0-13.0); NEUTROPHILS % (AUTO) 69.8 % (40.0-77.0); PLATELET COUNT (AUTO) 60 K/uL (130-400); RED BLOOD CELL COUNT(AUTO) 2.78 MIL/uL (4.00-5.50); WHITE BLOOD COUNT (AUTO) 6.8 K/uL (4.8-10.8)
[2019-12-22 06:23] LABS: CREATININE 3.7 mg/dL (0.5-1.5); MAGNESIUM 2.2 mg/dL (1.80-2.40); POTASSIUM 3.7 mmol/L (3.5-5.1)
[2019-12-22] MEDS: PANTOPRAZOLE 40 MG/VIAL IVP SCH (08:48)
[2019-12-22] MEDS: SODIUM BICARBONATE 650 MG TAB PO SCH ×2 (08:48→20:35)
[2019-12-22] MEDS: MIDODRINE HCL 5 MG TABLET PO SCH ×3 (08:48→20:35)
[2019-12-22] MEDS: LACTULOSE 20 GM/30 ML UDCUP PO SCH (08:48)
[2019-12-22] MEDS: LEVOFLOXACIN 750 MG/D5W 150 ML 150 ML IV SCH (11:48)
[2019-12-22] MEDS: OCTREOTIDE ACETATE 100 MCG/ML AMP SQ SCH (20:36)
[2019-12-22] MEDS: DEXTROSE 50%-WATER 25 GM/50 ML VIAL IV SCH (22:32)
[2019-12-22] MEDS: INSULIN HUMULIN R 100 UNIT/ML 3ML IV SCH (22:33)
[2019-12-23 03:55] VITALS: BP 93/51
[2019-12-23] MEDS: LEVOTHYROXINE 150 MCG TABLET PO SCH (05:13)
[2019-12-23] MEDS: INSULIN HUMULIN R 100 UNIT/ML 3ML SQ SCH ×4 (05:59→21:00)
[2019-12-23 07:30] VITALS: BP 102/49
[2019-12-23] MEDS: MIDODRINE HCL 5 MG TABLET PO SCH ×3 (08:33→21:21)
[2019-12-23] MEDS: LACTULOSE 20 GM/30 ML UDCUP PO SCH (08:33)
[2019-12-23] MEDS: SODIUM BICARBONATE 650 MG TAB PO SCH ×2 (08:33→21:21)
[2019-12-23] MEDS: PANTOPRAZOLE 40 MG/VIAL IVP SCH (09:02)
[2019-12-23 11:30] VITALS: BP 95/56
[2019-12-23] MEDS: AMOXICILLIN 500 MG CAPSULE PO SCH (12:56)
[2019-12-23 15:30] VITALS: BP 96/57
[2019-12-23 20:19] VITALS: BP 97/50
[2019-12-23] MEDS: OCTREOTIDE ACETATE 100 MCG/ML AMP SQ SCH (21:23)
[2019-12-23] MEDS: TRAMADOL HCL 50 MG TABLET PO PRN (21:24)
[2019-12-23] MEDS: INSULIN HUMULIN R 100 UNIT/ML 3ML IV SCH (23:00)
[2019-12-23 23:55] VITALS: BP 91/56
[2019-12-24] MEDS: AMOXICILLIN 500 MG CAPSULE PO SCH ×3 (03:15→23:00)
[2019-12-24 03:41] VITALS: BP 102/58
[2019-12-24 04:41] LABS: HEMATOCRIT 27.7 % (36-48); MEAN CORPUSCULAR HEMOGLOBIN 33.2 pg (27.0-33.0); MEAN CORPUSCULAR HGB CONC 35.4 g/dL (32.0-36.0); MEAN CORPUSCULAR VOLUME 93.9 fL (79-99); PLATELET COUNT (AUTO) 59 K/uL (130-400); RED BLOOD CELL COUNT(AUTO) 2.95 MIL/uL (4.00-5.50); WHITE BLOOD COUNT (AUTO) 8.6 K/uL (4.8-10.8)
[2019-12-24 05:06] LABS: BAND NEUTROPHILS % (MANUAL) 6 % (0-2); EOSINOPHILS % (MANUAL) 2 % (1-6); LYMPHOCYTES % (MANUAL) 9 % (22-44); MAN.DIFF COMMENT-IMPRESSION MANUAL DIFFERENTIAL; MONOCYTES % (MANUAL) 7 % (2-9); PLATELET MORPHOLOGY COMMENT DECREASED; SEGMENTED NEUTROPHILS % 76 % (40-70)
[2019-12-24 05:09] LABS: CREATININE 5.1 mg/dL (0.5-1.5); PHOSPHORUS 6.2 mg/dL (2.5-4.9); POTASSIUM 3.8 mmol/L (3.5-5.1)
[2019-12-24] MEDS: INSULIN HUMULIN R 100 UNIT/ML 3ML SQ SCH ×4 (05:46→20:12)
[2019-12-24] MEDS: LEVOTHYROXINE 150 MCG TABLET PO SCH (05:46)
[2019-12-24 05:56] LABS: BILIRUBIN,TOTAL 36.8 mg/dL (0.2-1.0)
[2019-12-24 07:30] VITALS: BP 90/45
[2019-12-24] MEDS: PANTOPRAZOLE 40 MG/VIAL IVP SCH (08:19)
[2019-12-24] MEDS: SODIUM BICARBONATE 650 MG TAB PO SCH ×2 (09:00→20:12)
[2019-12-24] MEDS: LACTULOSE 20 GM/30 ML UDCUP PO SCH (09:00)
[2019-12-24] MEDS: MIDODRINE HCL 5 MG TABLET PO SCH ×3 (09:00→20:12)
[2019-12-24] MEDS: ONDANSETRON HCL 4 MG/2 ML VIAL IV PRN (10:45)
[2019-12-24 11:30] VITALS: BP 93/52
[2019-12-24] MEDS: LEVOFLOXACIN 750 MG/D5W 150 ML 150 ML IV SCH (12:27)
--- NOTE | 2019-12-24 13:30 | NUR ---
LEFT HIP INCISION ADRIEN REMOVED REMOVED 23 ADRIEN FROM SURGICAL INCISIONS LOCATED AT LEFT HIP/UPPER THIGH. ALL ADRIEN INTACT UPON REMOVAL. SURGICAL INCISION SITES APPEARED SOILED. CLEANSED THOROUGHLY WITH SALINE, PATTED DRY, APPLIED BETADINE. SECURED SURGICAL INCISION WITH STERISTRIPS AND COVERED WITH NONADHERENT GAUZE.
[2019-12-24 16:00] VITALS: BP 93/52
[2019-12-24 19:59] VITALS: BP 99/51
[2019-12-24] MEDS: OCTREOTIDE ACETATE 100 MCG/ML AMP SQ SCH (20:12)
--- NOTE | 2019-12-24 20:15 | NUR ---
MEDS SHIFT ASSESSMENT DONE, PLEASE REFER TO CHART. DUE MEDS ADMINISTERED, TOLERATED WELL. KEPT RESTED AND COMFORTABLE IN BED WITH HOB ELEVATED. CALL LIGHT WITHIN REACH. WILL MONITOR PT. Addendum: 12/24/19 at 2242 by LAURYN TURNER RN RN Amended: Links added.
--- NOTE | 2019-12-24 22:00 | NUR ---
ROUNDS PT RESTING WELL. DENIES ANY NEEDS AT THIS TIME. KEPT RESTED AND COMFORTALBE WITH HOB ELEVATED. WILL MONITOR PT.
[2019-12-24 23:15] VITALS: BP 97/56
--- NOTE | 2019-12-25 01:58 | NUR ---
ROUNDS PT FAIRLY ASLEEP WITH RESPIRATIONS EVEN AND UNLABORED. NO DISTRESS NOTED. KEPT RESTED AND COMFORTABLE. CALL LIGHT WITHIN REACH. WILL MONITOR PT.
[2019-12-25 03:42] VITALS: BP 90/52
[2019-12-25 04:47] LABS: BASOPHILS % (AUTO) 0.3 % (0.0-5.0); EOSINOPHILS % (AUTO) 2.1 % (0.0-8.0); HEMATOCRIT 28.2 % (36-48); LYMPHOCYTES % (AUTO) 3.9 % (21.0-51.0); MEAN CORPUSCULAR HEMOGLOBIN 33.2 pg (27.0-33.0); MEAN CORPUSCULAR HGB CONC 35.5 g/dL (32.0-36.0); MEAN CORPUSCULAR VOLUME 93.7 fL (79-99); MONOCYTES % (AUTO) 11.8 % (3.0-13.0); NEUTROPHILS % (AUTO) 80.2 % (40.0-77.0); PLATELET COUNT (AUTO) 52 K/uL (130-400); RED BLOOD CELL COUNT(AUTO) 3.01 MIL/uL (4.00-5.50); WHITE BLOOD COUNT (AUTO) 9.8 K/uL (4.8-10.8)
[2019-12-25 05:18] LABS: ALBUMIN 2.8 g/dL (3.5-5.0); CREATININE 5.7 mg/dL (0.5-1.5); POTASSIUM 4.3 mmol/L (3.5-5.1)
[2019-12-25] MEDS: LEVOTHYROXINE 150 MCG TABLET PO SCH (05:38)
[2019-12-25] MEDS: INSULIN HUMULIN R 100 UNIT/ML 3ML SQ SCH ×4 (05:38→21:00)
--- NOTE | 2019-12-25 05:38 | NUR ---
MEDS PT ALREADY AWAKE. DENIES ANY CONCERNS AT THIS TIME. DUE MEDS ADMINISTERED, TOLERATED WELL. APPLIED WARM PACKS TO LEFT HIP AREA ORDERED. KEPT COMFORTABLE IN BED. FOR MORE CARE.
[2019-12-25 05:57] LABS: BILIRUBIN,TOTAL 37.4 mg/dL (0.2-1.0)
[2019-12-25 08:00] VITALS: BP 91/53
[2019-12-25] MEDS: LACTULOSE 20 GM/30 ML UDCUP PO SCH (09:30)
[2019-12-25] MEDS: PANTOPRAZOLE 40 MG/VIAL IVP SCH (09:30)
[2019-12-25] MEDS: MIDODRINE HCL 5 MG TABLET PO SCH ×2 (09:30→21:21)
[2019-12-25] MEDS: SODIUM BICARBONATE 650 MG TAB PO SCH ×2 (09:30→21:21)
[2019-12-25 09:56] LABS: INR 2.17 (0.85-1.15); PARTIAL THROMBOPLASTIN TIME 61.9 SEC (26.3-35.5); PROTHROMBIN TIME 22.7 SEC (9.6-11.6)
[2019-12-25] MEDS: AMOXICILLIN 500 MG CAPSULE PO SCH ×2 (11:56→22:30)
--- NOTE | 2019-12-25 11:56 | NUR ---
CM NOTE PER [facility], AUTHORIZATION RECEIVED FOR SNF. PENDING COVID TESTING RESULTS, CM TO FOLLOW UP ACCORDINGLY.
--- NOTE | 2019-12-25 12:25 | NUR ---
CM NOTE UPDATED CLINICAL PACKET FAXED TO EMIL AT [facility]. PREVIOUSLY AUTHORIZATION HAD BEEN RECEIVED. CM TO FOLLOW UP ACCORDINGLY.
[2019-12-25 12:35] VITALS: BP 100/56
[2019-12-25] MEDS ORDERED: PHYTONADIONE 10 MG/1 ML AMP IM SCH (14:45)
--- NOTE | 2019-12-25 15:19 | NUR ---
CALLED DR MCCRACKEN ABOUT CONSULT FOR THIS PATIENT AND HE STATED THAT HE HAD ALREADY SPOKEN TO DR AHMADI AND THAT THERE WAS NOTHING THEY COULD DO FOR HER HERE. DR AHMADI LOOKING FOR TRANSFER TO HIGHER LEVEL OF CARE. Addendum: 12/25/19 at 1521 by SAMI BONILLA RN RN Amended: Links added.
[2019-12-25 18:28] VITALS: BP 125/49
--- NOTE | 2019-12-25 19:42 | NUR ---
GI CONSULT RECEIVED CALL BACK FROM DR. ARGUETA REGARDING NEW CONSULT FOR ACUTE/CHRONIC LIVER FAILURE. PER MD LIVER TRANSPLANT NEEDS TO BE ARRANGED BY TRANSPLANT FACILITY. TRANSPLANT FACILITY WOULD BE THE ONE TO DECIDE IF QUALIFIES FOR SURGERY.
[2019-12-25 20:36] VITALS: BP 92/50
[2019-12-25] MEDS: OCTREOTIDE ACETATE 100 MCG/ML AMP SQ SCH (21:22)
[2019-12-26] VITALS (7 sets, daily range): BP systolic 94–112; BP diastolic 51–61
[2019-12-26 03:41] LABS: HEMATOCRIT 27.6 % (36-48); MEAN CORPUSCULAR HEMOGLOBIN 33.4 pg (27.0-33.0); MEAN CORPUSCULAR VOLUME 90.5 fL (79-99); PLATELET COUNT (AUTO) 46 K/uL (130-400); RED BLOOD CELL COUNT(AUTO) 3.05 MIL/uL (4.00-5.50); WHITE BLOOD COUNT (AUTO) 11.6 K/uL (4.8-10.8)
[2019-12-26 04:19] LABS: ALBUMIN 2.8 g/dL (3.5-5.0); CREATININE 6.6 mg/dL (0.5-1.5); MAGNESIUM 2.4 mg/dL (1.80-2.40); POTASSIUM 4.5 mmol/L (3.5-5.1)
[2019-12-26 04:23] LABS: TOTAL PROTEIN, SERUM 6.2 g/dL (6.0-8.3)
[2019-12-26 04:26] LABS: BILIRUBIN,TOTAL 39.7 mg/dL (0.2-1.0)
[2019-12-26 06:13] LABS: INR 2.43 (0.85-1.15); PROTHROMBIN TIME 25.4 SEC (9.6-11.6)
[2019-12-26] MEDS: LEVOTHYROXINE 150 MCG TABLET PO SCH (06:22)
[2019-12-26] MEDS: INSULIN HUMULIN R 100 UNIT/ML 3ML SQ SCH ×4 (06:23→20:42)
[2019-12-26] MEDS: PANTOPRAZOLE 40 MG/VIAL IVP SCH (08:53)
[2019-12-26] MEDS: LACTULOSE 20 GM/30 ML UDCUP PO SCH ×3 (08:54→18:15)
[2019-12-26] MEDS: TRAMADOL HCL 50 MG TABLET PO PRN (08:55)
[2019-12-26] MEDS: MIDODRINE HCL 5 MG TABLET PO SCH ×2 (08:55→20:34)
[2019-12-26] MEDS: SODIUM BICARBONATE 650 MG TAB PO SCH ×2 (08:55→20:34)
[2019-12-26] MEDS: LEVOFLOXACIN 750 MG/D5W 150 ML 150 ML IV SCH (11:55)
[2019-12-26] MEDS: AMOXICILLIN 500 MG CAPSULE PO SCH (11:56)
[2019-12-26] MEDS: ONDANSETRON HCL 4 MG/2 ML VIAL IV PRN (16:30)
[2019-12-26] MEDS: OCTREOTIDE ACETATE 100 MCG/ML AMP SQ SCH (20:35)
[2019-12-27] VITALS (7 sets, daily range): BP systolic 84–101; BP diastolic 44–54
[2019-12-27] MEDS: AMOXICILLIN 500 MG CAPSULE PO SCH ×2 (00:08→12:24)
--- NOTE | 2019-12-27 01:00 | NUR ---
CARE Pt bathed per staff,luciano cath care rendered.Allevyn patch applied to coccyx,skin appears red,no breakdown noted.Left heel has deep tissue injury,allevyn patch applied.Placedpt on waffle mattress.Turned and repositioned q 2 hrs.
[2019-12-27] MEDS: LACTULOSE 20 GM/30 ML UDCUP PO SCH ×4 (02:30→18:30)
[2019-12-27 04:29] LABS: HEMATOCRIT 26.7 % (36-48); MEAN CORPUSCULAR HEMOGLOBIN 33.6 pg (27.0-33.0); MEAN CORPUSCULAR VOLUME 93.4 fL (79-99); PLATELET COUNT (AUTO) 45 K/uL (130-400); RED BLOOD CELL COUNT(AUTO) 2.86 MIL/uL (4.00-5.50); WHITE BLOOD COUNT (AUTO) 12.9 K/uL (4.8-10.8)
[2019-12-27 04:30] LABS: CREATININE 7.4 mg/dL (0.5-1.5); POTASSIUM 4.6 mmol/L (3.5-5.1)
[2019-12-27 05:09] LABS: BAND NEUTROPHILS % (MANUAL) 7 % (0-2); MAN.DIFF COMMENT-IMPRESSION MANUAL DIFFERENTIAL; MONOCYTES % (MANUAL) 2 % (2-9); PLATELET MORPHOLOGY COMMENT MARKED DECREASE; SEGMENTED NEUTROPHILS % 91 % (40-70)
[2019-12-27] MEDS: LEVOTHYROXINE 150 MCG TABLET PO SCH (05:36)
[2019-12-27] MEDS: INSULIN HUMULIN R 100 UNIT/ML 3ML SQ SCH ×4 (05:51→21:00)
[2019-12-27] MEDS: SODIUM BICARBONATE 650 MG TAB PO SCH ×2 (08:11→21:10)
[2019-12-27] MEDS: MIDODRINE HCL 5 MG TABLET PO SCH ×2 (08:11→21:09)
--- NOTE | 2019-12-27 12:10 | NUR ---
Palliative vs Hospice Sw recd call from . Pt's wanting more info on Palliative vs hospice. Sw called Jag Mcmanus [phone]. Per he spoke to Dr Kennedy and was told that pt's condition was bad and getting worse. stated that he wants pt to be evaluated for transplant and that hospice in only a "last resort" if no one will accept for transplant. Sw spoke to EDENILSON Angel who states that household appliance repairer is working on possible transfer this am and we should know if a transfer is possible soon. SW called back and informed of this. educated on Palliative care/ Dr Carter and hospice services. wants to wait for response from transplant centers before making decision. Sw to follow and assist as needed
--- NOTE | 2019-12-27 14:28 | NUR ---
SPOKE WITH DEMETRI AT [facility] AT [phone]; REQUESTED REFERRAL ORDER AND CHART BE FAXED TO [phone]; CHARGE NURSE PROCESSING
[2019-12-27] MEDS: OCTREOTIDE ACETATE 100 MCG/ML AMP SQ SCH (21:10)
[2019-12-28] MEDS: AMOXICILLIN 500 MG CAPSULE PO SCH ×2 (00:53→11:43)
[2019-12-28 03:17] VITALS: BP 88/50
[2019-12-28] MEDS: LACTULOSE 20 GM/30 ML UDCUP PO SCH ×3 (03:28→09:17)
[2019-12-28 06:12] LABS: INR 2.38 (0.85-1.15); PROTHROMBIN TIME 24.9 SEC (9.6-11.6)
[2019-12-28] MEDS: LEVOTHYROXINE 150 MCG TABLET PO SCH (06:31)
[2019-12-28] MEDS: INSULIN HUMULIN R 100 UNIT/ML 3ML SQ SCH ×4 (06:31→21:00)
[2019-12-28 06:43] LABS: ALBUMIN 2.5 g/dL (3.5-5.0); POTASSIUM 4.8 mmol/L (3.5-5.1); TOTAL PROTEIN, SERUM 5.7 g/dL (6.0-8.3)
[2019-12-28 06:49] LABS: BILIRUBIN,TOTAL 37.1 mg/dL (0.2-1.0); CREATININE 8.1 mg/dL (0.5-1.5)
[2019-12-28 08:30] VITALS: BP 85/43
[2019-12-28] MEDS: SODIUM BICARBONATE 650 MG TAB PO SCH ×2 (09:16→21:11)
[2019-12-28] MEDS: PANTOPRAZOLE SODIUM 40 MG TABLET.DR PO SCH (09:16)
[2019-12-28] MEDS: MIDODRINE HCL 5 MG TABLET PO SCH ×2 (09:16→21:11)
[2019-12-28] MEDS: LEVOFLOXACIN 750 MG/D5W 150 ML 150 ML IV SCH (11:43)
[2019-12-28 11:54] VITALS: BP 89/44
--- NOTE | 2019-12-28 15:23 | NUR ---
RDSCREEN - LOS X 11 Pt with Renal Non Dialysis diet order in place. No report of GI distress. Pt with poor PO intake @0%. Per RN, Pt requesting nutritional supplement. Altered renal labs. Consideration for liver transplant. Poor candidate for hemodialysis per EMR. Recommend Nepro BID
--- NOTE | 2019-12-28 15:29 | NUR ---
CM NOTE/RETAMA AUTH PER [facility], AUTH FOR SNF PLACEMENT. PATIENT PENDING TRANSFER APPROVAL TO TRANSPLANT CENTER, [facility]IST[facility].
[2019-12-28 16:56] VITALS: BP 90/44
[2019-12-28 19:00] VITALS: BP 90/52
[2019-12-28] MEDS: OCTREOTIDE ACETATE 100 MCG/ML AMP SQ SCH (21:11)
[2019-12-28 23:00] VITALS: BP 97/46
[2019-12-29] VITALS (8 sets, daily range): BP systolic 77–94; BP diastolic 33–48
[2019-12-29] MEDS: AMOXICILLIN 500 MG CAPSULE PO SCH ×2 (00:36→12:28)
[2019-12-29] MEDS: LACTULOSE 20 GM/30 ML UDCUP PO SCH ×4 (02:30→18:30)
[2019-12-29] MEDS: LEVOTHYROXINE 150 MCG TABLET PO SCH (05:02)
[2019-12-29] MEDS: PANTOPRAZOLE SODIUM 40 MG TABLET.DR PO SCH (05:02)
[2019-12-29] MEDS: INSULIN HUMULIN R 100 UNIT/ML 3ML SQ SCH ×4 (05:02→22:00)
--- NOTE | 2019-12-29 08:00 | NUR ---
AM SHIFT ASSESSMENT: AWAKE, VERY JAUNDICE WITH > BRUISING TO LT. THIGH.
[2019-12-29] MEDS: MIDODRINE HCL 5 MG TABLET PO SCH ×2 (08:33→20:50)
[2019-12-29] MEDS: SODIUM BICARBONATE 650 MG TAB PO SCH ×2 (09:00→20:50)
--- NOTE | 2019-12-29 16:21 | NUR ---
CALL TO TRANSPLANT TEAM NUMBER X2- FIRST TIME, ON HOLD X30 MINS, THIS TIME, OFFICE CLOSED, CALL TO SPOUSE, RELAYED ATTEMPTS FOR TRANSPLANT RELAYED LAB WORK- RISING BUN/CRE, RISING BILIRUBIN ASKED TO SEE PATIENT, PERMISSION GRANTED BY KAREN PATEL AND DR. Sabrina MASON CALL BACK TO SPOUSE STATES HE WILL BE THERE SHORTLY
--- NOTE | 2019-12-29 16:26 | NUR ---
CALL TO NURSE OF HAO BURCIAGA RE SPOUSE COMING TO VISIT LEFT MESSAGE WITH IVAN ELIAS WHO WILL RELAY
--- NOTE | 2019-12-29 19:00 | NUR ---
SPOUSE IN TO SEE PT. AND TALKED TO , DNR DISCUSSED, ADDRESSED WITH A SON VIA PHONE BUT NO DECISION REACHED. WILL FOLLOW UP IN AM.
--- NOTE | 2019-12-29 20:00 | NUR ---
PATIENT RESTING IN BED. ALERT AND ORIENTED. FOLLOWS COMMANDS, NOTICEABLE HAND TREMORS. JAUNDICE IN COLOR. BRUISING TO BLE. ABDOMINAL ASCITES. SBP 80-90S. HOSPITALIST AWARE. UNABLE TO GET A TEMP ON PATIENT. PATIENT DRANK ICE WATER WITH MEDS. WILL RE CHECK.
[2019-12-29] MEDS: OCTREOTIDE ACETATE 100 MCG/ML AMP SQ SCH (20:51)
--- NOTE | 2019-12-29 23:00 | NUR ---
UNABLE TO GET READING ON THERMOMETER. SBP REMAINS 80-90S. NOTIFIED PRINCE FRANKS. PER QIAN LAUGHLIN TRANSFER TO ICU AND START ON A DRIP. BEAR HUGGER PLACED ON PT. PATIENT IS A/OX X3. NO CHANGE IN MENTAL STATUS.
[2019-12-29] MEDS ORDERED: NOREPINEPHRINE 4MG/NS 250ML 250 ML IV ONE (23:10)
--- NOTE | 2019-12-29 23:45 | NUR ---
REPORT RECEIVED. PATIENT ASSESSMENT COMPLETED, PATIENT AWAKE, ALERT , ORIENTED X 3, FOLLOWS COMMANDS, GAGE 3MM, WEAK X 4. SBP 77/33 LEVOPHED STARTED AT 0.1 MCG/KG/ MIN. PIV PATENT WITH GOOD BLOOD RETURN. PATIENT COOL WITH TEMP 94.3, SHIVERING AT TIMES.
[2019-12-30] VITALS (79 sets, daily range): BP systolic 70–140; BP diastolic 31–66
--- NOTE | 2019-12-30 00:30 | NUR ---
WARM BLANKETS REMOVED AND ELISABETH HUGGER APPLIED FOR WARMING. TEMP 93.4, PATIENT WITH ELEVATED HRBAT TIMES DUE TO SHIVERING. LEVOPHED INFUSING AT 0.05 MCG/KG MIN. PATIENT AWAKE , ALERT , SMILING AT TIMES, JAUNDICED.
[2019-12-30] MEDS: AMOXICILLIN 500 MG CAPSULE PO SCH ×2 (01:02→12:36)
[2019-12-30] MEDS: LACTULOSE 20 GM/30 ML UDCUP PO SCH ×4 (02:30→17:06)
[2019-12-30] MEDS: LEVOTHYROXINE 150 MCG TABLET PO SCH (05:41)
[2019-12-30] MEDS: INSULIN HUMULIN R 100 UNIT/ML 3ML SQ SCH ×4 (06:24→21:00)
[2019-12-30] MEDS: PANTOPRAZOLE SODIUM 40 MG TABLET.DR PO SCH (06:26)
[2019-12-30 07:54] LABS: MEAN CORPUSCULAR HEMOGLOBIN 33.1 pg (27.0-33.0); MEAN CORPUSCULAR HGB CONC 36.3 g/dL (32.0-36.0); MEAN CORPUSCULAR VOLUME 91.2 fL (79-99); NUCLEATED RED BLOOD CELLS 0.1 % (0.0-0.19); PLATELET COUNT (AUTO) 57 K/uL (130-400); RED BLOOD CELL COUNT(AUTO) 3.29 MIL/uL (4.00-5.50); RED CELL DISTRIBUTION WIDTH 23.4 % (11.0-15.5); WHITE BLOOD COUNT (AUTO) 23.2 K/uL (4.8-10.8)
[2019-12-30 08:04] LABS: BAND NEUTROPHILS % (MANUAL) 7 % (0-2); LYMPHOCYTES % (MANUAL) 8 % (22-44); MAN.DIFF COMMENT-IMPRESSION MANUAL DIFFERENTIAL; MONOCYTES % (MANUAL) 4 % (2-9); PLATELET MORPHOLOGY COMMENT DECREASED; SEGMENTED NEUTROPHILS % 81 % (40-70)
[2019-12-30] MEDS: MIDODRINE HCL 5 MG TABLET PO SCH ×2 (08:15→21:04)
[2019-12-30] MEDS: NOREPINEPHRINE 4MG/NS 250ML 250 ML IV SCH ×4 (08:20→22:32)
[2019-12-30] MEDS: SODIUM BICARBONATE 650 MG TAB PO SCH ×2 (08:32→21:05)
[2019-12-30 08:37] LABS: ALBUMIN 2.5 g/dL (3.5-5.0); MAGNESIUM 2.3 mg/dL (1.80-2.40)
[2019-12-30 09:35] LABS: BILIRUBIN,TOTAL 39.2 mg/dL (0.2-1.0); CREATININE 9.1 mg/dL (0.5-1.5)
--- NOTE | 2019-12-30 09:45 | NUR ---
DR MCPHERSON MADE AWARE AND INFORMED VIA TELEPHONE AT THIS TIME FOR RECONSULT OF THIS PATIENT. NO ORDERS GIVEN.
[2019-12-30 10:35] LABS: TOTAL PROTEIN, SERUM 5.9 g/dL (6.0-8.3)
[2019-12-30] MEDS ORDERED: DEXTROSE 50%-WATER 25 GM/50 ML VIAL ONE (16:31)
[2019-12-30] MEDS ORDERED: GLUCAGON 1MG KIT 1 MG ML IM PRN (16:45)
[2019-12-30] MEDS ORDERED: DEXTROSE 50%-WATER 50 ML DISP.SYRIN IV PRN (16:45)
[2019-12-30] MEDS ORDERED: DEXTROSE 50%-WATER 25 GM/50 ML VIAL IV SCH (18:20)
--- NOTE | 2019-12-30 18:30 | NUR ---
SPOUSE IN TO SEE PATIENT; DR AHMADI AT BEDSIDE UPDATING ON PATIENT STATUS; DECIDED TO MAKE PATIENT DNR AT THIS TIME; CONSENT TO DNR SIGNED AND PLACED IN FRONT OF CHART.
[2019-12-30] MEDS: OCTREOTIDE ACETATE 100 MCG/ML AMP SQ SCH (20:25)
[2019-12-31] VITALS (60 sets, daily range): BP systolic 96–128; BP diastolic 41–63
[2019-12-31] MEDS: AMOXICILLIN 500 MG CAPSULE PO SCH (00:11)
[2019-12-31] MEDS: LACTULOSE 20 GM/30 ML UDCUP PO SCH ×4 (03:30→18:30)
[2019-12-31] MEDS: NOREPINEPHRINE 4MG/NS 250ML 250 ML IV SCH ×4 (03:50→22:53)
[2019-12-31 05:21] LABS: POTASSIUM 5.4 mmol/L (3.5-5.1)
[2019-12-31 05:27] LABS: HEMATOCRIT 30.7 % (36-48); MEAN CORPUSCULAR HEMOGLOBIN 33.8 pg (27.0-33.0); MEAN CORPUSCULAR HGB CONC 35.2 g/dL (32.0-36.0); MEAN CORPUSCULAR VOLUME 95.9 fL (79-99); NUCLEATED RED BLOOD CELLS 0.1 % (0.0-0.19); PLATELET COUNT (AUTO) 56 K/uL (130-400); RED CELL DISTRIBUTION WIDTH 24.1 % (11.0-15.5); WHITE BLOOD COUNT (AUTO) 24.9 K/uL (4.8-10.8)
[2019-12-31] MEDS: LEVOTHYROXINE 150 MCG TABLET PO SCH (06:04)
[2019-12-31 06:14] LABS: MAN.DIFF COMMENT-IMPRESSION MANUAL DIFFERENTIAL; MONOCYTES % (MANUAL) 6 % (2-9); PLATELET MORPHOLOGY COMMENT DECREASED; SEGMENTED NEUTROPHILS % 94 % (40-70)
[2019-12-31] MEDS: INSULIN HUMULIN R 100 UNIT/ML 3ML SQ SCH ×4 (06:46→21:00)
[2019-12-31] MEDS: PANTOPRAZOLE SODIUM 40 MG TABLET.DR PO SCH (06:46)
[2019-12-31 06:49] LABS: CREATININE 9.9 mg/dL (0.5-1.5)
[2019-12-31] MEDS: MIDODRINE HCL 5 MG TABLET PO SCH ×2 (08:50→21:15)
[2019-12-31] MEDS: SODIUM BICARBONATE 650 MG TAB PO SCH ×2 (08:50→21:15)
--- NOTE | 2019-12-31 12:00 | NUR ---
Dr Carter made aware of new consult, but states cm/jacy needs to refer the patient to [facility] or other hospice to see if patient will be accepted. Farzad made aware and stated patient/ family will either need to wait until tomorrow when socially responsible investment adviser can arrange hospice or they also have the option to withdraw care and provide comfort measures at this time. dr crump also made aware. Dr Brown to see patient later today, as per AJ, hospitalist INDUSTRIAL SAFETY ENGINEER
[2019-12-31] MEDS: ONDANSETRON HCL 4 MG/2 ML VIAL IV PRN (15:55)
--- NOTE | 2019-12-31 16:21 | NUR ---
HOSPICE SW contacted patient's spouse, Jag Mcmanus, to discuss hospice option. Spouse stated he was not able to care for patient at home and wants her to be referred to local SNF. Consent provided for 1) [facility] 2) [facility]. Consent also provided for any hospice in network with patient's insurance. Updates sent to [facility] and SW spoke to Larissa Longo, [facility] Liaison. Larissa informed SW that they had already obtained authorization a few weeks ago but not for hospice. Larissa will submit for authorization. Patient information also sent to [facility] for review. Warren Jones, [employer] Design Engineer made aware. Patient's nurse, Bonita aware of above information.
[2019-12-31] MEDS: OCTREOTIDE ACETATE 100 MCG/ML AMP SQ SCH (21:15)
[2019-12-31] MEDS ORDERED: AMOXICILLIN 500 MG CAPSULE PO ONE (23:24)
[2020-01-01] VITALS (31 sets, daily range): BP systolic 83–111; BP diastolic 36–58
[2020-01-01] MEDS: LACTULOSE 20 GM/30 ML UDCUP PO SCH ×2 (01:59→08:28)
[2020-01-01] MEDS ORDERED: LACTULOSE 20 GM/30 ML UDCUP PO PRN (04:30)
[2020-01-01 05:18] LABS: BASOPHILS % (AUTO) 0.3 % (0.0-5.0); EOSINOPHILS % (AUTO) 0.1 % (0.0-8.0); HEMATOCRIT 32.1 % (36-48); LYMPHOCYTES % (AUTO) 2.5 % (21.0-51.0); MEAN CORPUSCULAR HEMOGLOBIN 33.4 pg (27.0-33.0); MEAN CORPUSCULAR HGB CONC 34.6 g/dL (32.0-36.0); MEAN CORPUSCULAR VOLUME 96.7 fL (79-99); MONOCYTES % (AUTO) 8.6 % (3.0-13.0); NEUTROPHILS % (AUTO) 85.6 % (40.0-77.0); NUCLEATED RED BLOOD CELLS 0.1 % (0.0-0.19); PLATELET COUNT (AUTO) 61 K/uL (130-400); RED BLOOD CELL COUNT(AUTO) 3.32 MIL/uL (4.00-5.50); RED CELL DISTRIBUTION WIDTH 23.7 % (11.0-15.5)
[2020-01-01 05:25] LABS: WHITE BLOOD COUNT (AUTO) 33.7 K/uL (4.8-10.8)
[2020-01-01] MEDS: LEVOTHYROXINE 150 MCG TABLET PO SCH (05:39)
[2020-01-01] MEDS: NOREPINEPHRINE 4MG/NS 250ML 250 ML IV SCH ×2 (05:39→11:48)
[2020-01-01 05:43] LABS: POTASSIUM 5.4 mmol/L (3.5-5.1)
[2020-01-01 05:54] LABS: INR 2.77 (0.85-1.15); PARTIAL THROMBOPLASTIN TIME 86.3 SEC (26.3-35.5); PROTHROMBIN TIME 28.8 SEC (9.6-11.6)
[2020-01-01 05:58] LABS: BAND NEUTROPHILS % (MANUAL) 1 % (0-2); CREATININE 10.4 mg/dL (0.5-1.5); LYMPHOCYTES % (MANUAL) 1 % (22-44); MONOCYTES % (MANUAL) 10 % (2-9); SEGMENTED NEUTROPHILS % 88 % (40-70)
[2020-01-01 05:59] LABS: MAN.DIFF COMMENT-IMPRESSION MANUAL DIFFERENTIAL
[2020-01-01] MEDS: INSULIN HUMULIN R 100 UNIT/ML 3ML SQ SCH ×3 (06:31→16:30)
[2020-01-01] MEDS: PANTOPRAZOLE SODIUM 40 MG TABLET.DR PO SCH (06:31)
[2020-01-01] MEDS: SODIUM BICARBONATE 650 MG TAB PO SCH (08:29)
[2020-01-01] MEDS: MIDODRINE HCL 5 MG TABLET PO SCH (08:29)
--- NOTE | 2020-01-01 13:25 | NUR ---
TRANSFER REPORT REPORT GIVEN TO SUNIL ELIZABETH AT 1325. PATIENT WILL BE TRANSFERRED TO ROOM 311. LEVOPHED WILL BE DISCONTINUED WHEN PATIENT ARRIVES TO ROOM 311.
--- NOTE | 2020-01-01 13:45 | NUR ---
COMFORT MEASURES WILLARD spoke to Larissa at [facility]. Informed that pt has [facility] only. Pt would need to have medicaid in place or private pt for $249 a day. Larissa would need to call and verify that [facility] would cover hospice services. WILLARD spoke to [facility] and they believe they are out of network with [facility]. Office to verify. [place] and [facility] not accepting pts, [facility] has a long waiting list. Willard spoke to Alisson MORRISON. Comfort measures may be only option for pt at this time. Alisson and Dr Mcrae spoke to and he is agreeable to this. WILLARD met with Mr Mcmanus and explained options and nursing placement with hospice coverage. voiced understanding and is agreeable to pt beginning comfort measures. Per nurse pt being transferred to [facility].
--- NOTE | 2020-01-01 13:51 | NUR ---
TRANSFER FROM DAY PATIENT PATIENT ARRIVED FROM DAY PATIENT ROOM 14 VIA HOSPITAL BED ACCOMPANIED BY SPOUSE. BOTH HAVE BEEN ORIENTED TO ROOM AND USE OF CALL LIGHT. BED IS IN LOWEST POSITION AND LOCKED. LEVOPHED DRIP WAS DISCONTINUED AT THIS TIME BY DAY PATIENT NURSE. WILL CONTINUE TO MONITOR.
--- NOTE | 2020-01-01 13:55 | NUR ---
TRANSFER PATIENT TRANSFERRED TO [facility] AT 1350. LEVOPHED INFUSION WAS STOPPED AT 1355. SUNIL ELIZABETH PRESENT AT BEDSIDE TO TAKE OVER CARE. Addendum: 01/01/20 at 1408 by GUME DIGGS RN AT BEDSIDE TO ACCOMPANY .
--- NOTE | 2020-01-01 14:56 | NUR ---
FAMILY VISITATIONS Wade recd call from asking about visitations now that pt was on Comfort Care. Wade called Gianfranco, bath house attendant and verified. can come in and must stay here until he is ready to leave hospital for day. Once pt leaves for the day, pt can not return until tomorrow. Wade explained this to and he voiced understanding
[2020-01-01] MEDS ORDERED: ALPRAZOLAM 0.5 MG TABLET PO PRN (18:00)
--- NOTE | 2020-01-01 21:00 | NUR ---
CARE Pt turned and repositioned to side,oral care rendered.Pt moans and grimaces.
[2020-01-01] MEDS ORDERED: HYDROMORPHONE HCL 0.5 MG/0.5 ML ML IVP PRN (22:15)
[2020-01-01] MEDS ORDERED: HYDROMORPHONE HCL 0.5 MG/0.5 ML ML ONE (22:21)
--- NOTE | 2020-01-01 22:31 | NUR ---
PAIN Pt appears uncomfortable,moaning,and restless.Dilaudid given.
--- NOTE | 2020-01-02 02:40 | NUR ---
STATUS Pt appears more calm,respirations unlabored.Grimaces and moans when being turned,Oral care rendered.
[2020-01-02 03:54] VITALS: BP 157/100
--- NOTE | 2020-01-02 06:23 | NUR ---
PAIN Pt cont to moan,grimacing,Dilaudid given Iv.
[2020-01-02] MEDS ORDERED: MORPHINE SULFATE 2 MG/ML 1ML SYG IM PRN (07:45)
[2020-01-02] MEDS ORDERED: LORAZEPAM 2 MG/ML 1 ML VIAL IM PRN (07:45)
[2020-01-02 08:18] VITALS: BP 66/28
[2020-01-02] MEDS ORDERED: LORAZEPAM 2 MG/ML 1 ML VIAL IVP PRN (11:45)
--- NOTE | 2020-01-02 12:25 | NUR ---
Agonal breathing, use of accessory muscles with periods of apnea noted. Vital machine unable to pick up attendant heart beat or pulse oximetry. No lung sounds or heart sounds noted to auscultion, no peripheral pulse. DNR status in place. Contacted [employer] Salvage Inspector for confirmation of time of . Notified Guy Hearn NP of findings. Doroteo José RN, Charge nurse to notify spouse.
--- NOTE | 2020-01-02 12:35 | NUR ---
Called spouse to let know of change in condition. Initially answered phone, but did not speak. Called spouse's phone number back and voicemail picked up. Unable to leave message due to voicemail being full. Will continue to attempt to reach spouse.
--- NOTE | 2020-01-02 12:54 | NUR ---
TIME OF Parcel Post Carrier Mansi Hollis RN pronounced at 12:54. FREDIS contacted, reference # [id number] assigned.
--- NOTE | 2020-01-02 12:54 | NUR ---
NOTIFICATION CONTACTED PATIENT ALISSA BURCIAGA AND NOTIFIED HIM OF PASSING. IS ON HIS WAY TO HOSPITAL.
== END 2020-01-02 12:54 | disposition expired | DRG 559 ==
LOC: EDH 20:30 → EDHIP 23:01 → 2CH 12-18 08:07 → 4DH 12-19 12:08 → DAHIP 12-28 17:51 → 3BH 01-01 13:59
PROVIDERS: ADMIT Hospitalist; ATTEND Hospitalist
PROC: 0W9G3ZZ Drainage of Peritoneal Cavity, Percutaneous Approach (ICD-10-PCS; principal; 2019-12-18)
DX: T84.52XA Infection and inflammatory reaction due to internal left hip prosthesis, initial encounter (principal); A41.9 Sepsis, unspecified organism; K76.7 Hepatorenal syndrome; R65.20 Severe sepsis without septic shock; N17.9 Acute kidney failure, unspecified; N39.0 Urinary tract infection, site not specified; E87.2 Acidosis; E87.1 Hypo-osmolality and hyponatremia; D68.4 Acquired coagulation factor deficiency; K92.2 Gastrointestinal hemorrhage, unspecified; M00.9 Pyogenic arthritis, unspecified; G93.40 Encephalopathy, unspecified; K70.31 Alcoholic cirrhosis of liver with ascites; N18.9 Chronic kidney disease, unspecified; E11.22 Type 2 diabetes mellitus with diabetic chronic kidney disease; I12.9 Hypertensive chronic kidney disease with stage 1 through stage 4 chronic kidney disease, or unspecified chronic kidney disease; Z66 Do not resuscitate; E87.5 Hyperkalemia; E87.70 Fluid overload, unspecified; D69.6 Thrombocytopenia, unspecified; Z20.828 Contact with and (suspected) exposure to other viral communicable diseases; B19.20 Unspecified viral hepatitis C without hepatic coma; B96.89 Other specified bacterial agents as the cause of diseases classified elsewhere; D64.9 Anemia, unspecified; E03.9 Hypothyroidism, unspecified; R53.81 Other malaise; E78.5 Hyperlipidemia, unspecified; K70.40 Alcoholic hepatic failure without coma; K80.20 Calculus of gallbladder without cholecystitis without obstruction; Z51.5 Encounter for palliative care; B95.2 Enterococcus as the cause of diseases classified elsewhere; Y83.8 Other surgical procedures as the cause of abnormal reaction of the patient, or of later complication, without mention of misadventure at the time of the procedure; Y92.89 Other specified places as the place of occurrence of the external cause; Z74.01 Bed confinement status; Z79.4 Long term (current) use of insulin; Z87.891 Personal history of nicotine dependence; Z83.3 Family history of diabetes mellitus
CPT/HCPCS: 36415; 49083; 73700; 74176; 74181; 76705; 80048; 80053; 80202; 81001; 82140; 82247; 82248; 82570; 82948; 83605; 83735; 83935; 84100; 84132; 84145; 84300; 84443; 84550; 85025; 85027; 85610; 85651; 85730; 86140; 87040; 87070; 87071; 87076; 87077; 87088; 87186; 87205; 89051; 97039; C9113; G0378; J0610; J1170; J1815; J1956; J2060; J2185; J2354; J2405; J2543; J3370; J3430; J3490; J7050; J7070; P9046; P9047; U0003